=== PATIENT | male | born 1960 | race Caucasian/White ===

== ENCOUNTER 2019-12-08 12:08 | Inpatient (IN) | payer OTHER ==
--- NOTE | 2019-12-08 12:16 | PDOC ---
Rapid Medical Evaluation Time Seen by Provider: 12/08/19 12:09 Medical Evaluation: Allergies Allergy/AdvReac Type Severity Reaction Status Date / Time CORIE Inhibitors Allergy Verified 11/20/19 11:27 enalapril Allergy Verified 11/20/19 11:27 12/08/19 12:10 I performed a brief in-person evaluation of this patient. Pt is a 59 y/o male with a wound to the L lower leg that he has had since March 2018. He states the wound has been increasingly more odorous for the last 2 weeks. He was seen by Dr. Fields and was advised to come to the ED for admission. He denies history of DM and states he has circulation issues. He denies any fevers or chills. He has CHF, nonischemic cardiomyopathy, HTN. Nonsmoker. Pertinent physical exam findings: b/l LE chronic skin changes appreciated. RLE with bandage in place. Nontoxic, speaking in full sentences. I have ordered the following: cbc, cmp, saline lock Patient to proceed to ED for further evaluation. Discharge Disposition - Diagnosis Wound of lower extremity - Referrals - Patient Instructions - Post Discharge Activity
--- NOTE | 2019-12-08 12:51 | PDOC ---
History of Present Illness - General Chief Complaint: Wound Stated Complaint: WOUND Time Seen by Provider: 12/08/19 12:09 History Source: Patient Exam Limitations: No Limitations - History of Present Illness Initial Comments: 12/08/19 12:51 Caio Conteh is a 59M with PMH non-ischemic CM, CHF, PAD, chronic bilateral LE ulcers referred by Dr. Meyer for admission and IV ABx. Patient has had BLE ulcers for last 2 years, had IV ABx last 06/26, has been following with Dr. Lopez wound clinic last few months. Last 2 weeks having malodorous discharge and increased serous discharge. Has MANAGER ETL to manage wound care. Last visit to wound clinic Dr. Meyer referred to ED for admission for IV ABx. Denies chest pain, SOB, papitations, abd pain, N/V/D, dizziness, urinary sx. Unable to ambulate, stays at home and elevates legs in bed. Denies any LE pain or numbness/tingling, denies any bleeding or pus. History of CHF 2/2 cardiomyopathy, on triamterene/HCTZ. Also chronic lower back pain and sciatica, on gabapentin and oxycodone. PMD in the [facility] Dr. Lopez Scheduled for umbilical hernia repair in 2 weeks and vascular laser ablation next month. Allergy to enalapril. Large number of meds taken. Denies alcohol/drug/tobacco use. Past History - Medical History Allergies/Adverse Reactions: Allergies Allergy/AdvReac Type Severity Reaction Status Date / Time CORIE Inhibitors Allergy Verified 11/20/19 11:27 enalapril Allergy Verified 11/20/19 11:27 Home Medications: Ambulatory Orders Amlodipine Besylate 1 tab PO DAILY 07/14/19 Gabapentin 1 tab PO TID 07/14/19 Oxycodone HCl/Acetaminophen [Oxycodone-Acetaminophen 10-325] 1 tab PO PRN 08/29/19 Buprenorphine 5 mg TD WEEKLY 10/23/19 Naftifine HCl [Naftin] 60 gm TP DAILY #1 tube 10/31/19 Aspirin [Aspirin EC] 81 mg PO DAILY 12/08/19 Carvedilol 12.5 mg PO DAILY 12/08/19 Docusate Sodium [Colace] 100 mg PO DAILY 12/08/19 Melatonin 1 mg PO PRN 12/08/19 Torsemide 20 mg PO PRN 12/08/19 Anemia: No Asthma: No Cancer: No Cardiac Disorders: Yes (Non ischemic myopathy, CHF) CVA: No COPD: No CHF: Yes Dementia: No Diabetes: No GI Disorders: No Disorders: No HTN: Yes Hypercholesterolemia: Yes Liver Disease: No Seizures: No Thyroid Disease: No - Surgical History Abdominal Surgery: No Appendectomy: No Cardiac Surgery: No Cholecystectomy: No Lung Surgery: No Neurologic Surgery: No Orthopedic Surgery: No - Psycho-Social/Smoking History Smoking History: Never smoked Have you smoked in the past 12 months: No - Substance Abuse Hx (Audit-C & DAST Scrn) How often the patient has a drink containing alcohol: Monthly or less Number of drinks the patient has on a typical day: 1 or 2 How often the patient has six or more drinks on one occasion: Never Score: In Men: 4 or > Positive; In Women: 3 or > Positive: 1 Screen Result (Pos requires Nsg. Audit-10AR): Negative In the last yr the pt used illegal drug/Rx for NonMed reason: No Score: Yes response is considered Positive: 0 Screen Result (Positive result requires Nsg. DAST-10): Negative Review of Systems - Review of Systems Able to Perform ROS?: Yes Constitutional: No: Fever, Weakness HEENTM: No: Symptoms Reported Respiratory: No: Cough, Shortness of Breath Cardiac (ROS): No: Chest Pain, Edema, Irregular Heart Rate, Lightheadedness, Palpitations, Syncope ABD/GI: No: Constipated, Diarrhea, Nausea, Poor Appetite, Poor Fluid Intake, Vomiting : No: Symptoms Reported Musculoskeletal: Yes: Back Pain Integumentary: Yes: Other (wounds BLE) Neurological: No: Headache, Numbness, Paresthesia Endocrine: No: Symptoms Reported Hematologic/Lymphatic: No: Symptoms Reported All Other Systems: Reviewed and Negative *Physical Exam - Vital Signs Last Vital Signs Temp Pulse Resp BP Pulse Ox 98.4 F 127 H 20 134/79 96 12/08/19 12:10 12/08/19 12:10 12/08/19 12:10 12/08/19 12:10 12/08/19 12:10 - Physical Exam General Appearance: Yes: Nourished, Appropriately Dressed, Obese, Other (pleasant and extra talkative). No: Apparent Distress HEENT: positive: EOMI, ALEJANDRA, Normal Voice, Pharynx Normal. negative: Scleral Icterus (R), Scleral Icterus (L), Pharyngeal Erythema, Tonsillar Exudate, Tonsillar Erythema, Nasal Congestion Neck: positive: Trachea midline, Normal Thyroid, Supple. negative: Tender, Rigid, Lymphadenopathy (R), Lymphadenopathy (L) Respiratory/Chest: positive: Lungs Clear, Normal Breath Sounds. negative: Chest Tender, Respiratory Distress, Accessory Muscle Use, Crackles, Rales, Rhonchi, Stridor Cardiovascular: positive: Regular Rhythm, Regular Rate, Tachycardia (127) Gastrointestinal/Abdominal: positive: Normal Bowel Sounds, Soft, Protuberent, Hernia (large umbilical hernia with apical wound, reducible and non-tender). negative: Tender, Pulsatile Mass, Distended, Guarding, Rebound Musculoskeletal: positive: Normal Inspection. negative: CVA Tenderness, CVA Tenderness (R), CVA Tenderness (L), Vertebral Tenderness Extremity: positive: Normal Capillary Refill, Normal Inspection, Normal Range of Motion, Pelvis Stable. negative: Tender Integumentary: positive: Swelling, Other (large 4x5x0.5cm wound to LLE with granulation tissue, no bleeding or pus, scattered ulcers to RLE, edema from BLE feet to knees) Neurologic: positive: Fully Oriented, Alert, Normal Mood/Affect, Normal Response, Motor Strength 5/5, Other (full ROM to BLE, no sensory deficits). negative: Numbness, Sensory Deficit ED Treatment Course - LABORATORY CBC & Chemistry Diagram: 12/08/19 13:10 12/08/19 13:10 Medical Decision Making - Medical Decision Making 12/08/19 14:12 Patient has history of CM, CHF, and chronic wounds followed by wound clinic Dr. Lopez and Dr. Meyer, referred for IV ABx and admission. Patient denies any systemic sx, but has worsening wounds and discharge consistent with worsening ulceration. Tachycardic to 100s, no SOB or cough, no chest pain, no hypoxia, but has BLE swelling and is sedentary. Very low suspicion for DVT, tachycardia likely 2/2 back pain which patient frequently complains about, will closely monitor and get US for DVT eval. Avoiding IVF for tachycardia given BLE swelling and worsening third spacing. Abdominal hernia is large but completely reducible and non-tender. Evaluating with basic labs, ESR/CRP for eval osteo, ECG/CXR, UA/UC, BC, R tib/fib XR for eval gangrene, wound culture, and BLE US for eval DVT. Dr. Meyer consulted for IV Abx. Plan for Med/Surg admission. 12/08/19 15:[address] Salinas, accepted for admission for IV ABx to Med-Surg. Consulted Dr. Meyer, spoke with ID Dr. Jay (?) covering, recommends 3.375mg IV Zosyn Q8hr and 1000mg one time vancomycin. Discharge - Discharge Information Problems reviewed: Yes Clinical Impression/Diagnosis: Wound of lower extremity Qualifiers: Encounter type: initial encounter Laterality: left Qualified Code(s): S81.802A - Unspecified open wound, left lower leg, initial encounter Condition: Stable - Admission Yes - Follow up/Referral - Patient Discharge Instructions - Post Discharge Activity
[2019-12-08 13:59] LABS: BASO % 0.8 % (0-2.0); EOS % 6.9 % (0-4.5); HEMATOCRIT 34.2 % (35.4-49); HEMOGLOBIN 10.9 GM/dL (11.7-16.9); LYMPH % 15.5 % (8-40); MCH 27.6 pg (25.7-33.7); MCHC 31.9 g/dl (32.0-35.9); MEAN CELL VOLUME 86.5 fl (80-96); MONO % 7.1 % (3.8-10.2); NEUT % 69.7 % (42.8-82.8); PLATELET COUNT 294 K/MM3 (134-434); RBC 3.96 M/mm3 (4.00-5.60); RDW 15.8 % (11.9-15.9); WHITE BLOOD COUNT 9.1 K/mm3 (4.0-10.0)
[2019-12-08 14:07] LABS: INR 1.06 (0.83-1.09); PROTHROMBIN TIME (PATIENT) 12.5 SEC (9.7-13.0)
[2019-12-08 14:10] LABS: ACTIVATED PTT 31.5 SECONDS (25.2-36.5)
[2019-12-08 14:31] LABS: BILIRUBIN,TOTAL 0.2 mg/dL (0.2-1); BLOOD UREA NITROGEN 23.3 mg/dL (7-18); CALCIUM 8.7 mg/dL (8.5-10.1); POTASSIUM 4.4 mmol/L (3.5-5.1); TOT PROT 6.6 g/dl (6.4-8.2)
--- NOTE | 2019-12-08 14:55 | PDOC ---
Documentation entered by Junior Carty SCRIBE, acting as scribe for Cyndi Melgar MD. Cyndi Melgar MD: This documentation has been prepared by the Machelle monae Xhesika, SCRIBE, under my direction and personally reviewed by me in its entirety. I confirm that the documentation accurately reflects all work, treatment, procedures, and medical decision making performed by me. Attending Attestation - Resident Resident Name: Shay Rosales - ED Attending Attestation I have performed the following: I have examined & evaluated the patient, The case was reviewed & discussed with the resident, I agree w/resident's findings & plan, Exceptions are as noted - HPI HPI: 12/08/19 12:53 The patient is a 59 y/o male with a h/o CHF, nonischemic cardiomyopathy, and HTN who presents to the ED for BLE wounds. Pt states he has had this wound since March 2018 but for the past 2 weeks, pt has noticed the wound has become increasingly more odorous with discharge. Pt notes he was seen by Dr. Meyer and was advised to come to the ED for abx and admission. The patient denies chest pain, shortness of breath, headache and dizziness. Denies fever, chills, cough, nausea, vomiting, diarrhea and constipation. Allergies: CORIE inhibitors, enalapril PCP:Umer Álvarez - Physicial Exam PE: GENERAL: Awake, alert, and fully oriented, in no acute distress. Morbidly obese HEAD: No signs of trauma EYES: PERRLA, EOMI, sclera anicteric, conjunctiva clear ENT: Auricles normal inspection, hearing grossly normal, nares patent, oropharynx clear without exudates. Moist mucosa NECK: Normal ROM, supple, no lymphadenopathy, JVD, or masses LUNGS: Breath sounds equal, clear to auscultation bilaterally. No wheezes, and no crackles HEART: Regular rate and rhythm, normal S1 and S2, no murmurs, rubs or gallops ABDOMEN: Soft, nontender, normoactive bowel sounds. No guarding, no rebound. +Large reducible umbilical hernia with skin breakdown, no drainage EXTREMITIES: 3+ pitting edema to BLE, with chronic stasis changes. Normal range of motion. No clubbing or cyanosis. No cords, erythema, or tenderness NEUROLOGICAL: Cranial nerves II through XII grossly intact. Normal speech. Motor and sensation intact SKIN: Warm, dry, normal turgor. +Multiple open lesions to BLE with surrounding erythema and induration. +Weeping wounds to RLE with clear fluid. +Weeping wound to L lower leg +odor. - Medical Decision Making Pt with multiple wounds to BLE, LLE wounds concerning for infection. Discharge - Discharge Information Problems reviewed: Yes Clinical Impression/Diagnosis: Wound of lower extremity Qualifiers: Encounter type: initial encounter Laterality: left Qualified Code(s): S81.802A - Unspecified open wound, left lower leg, initial encounter Condition: Stable - Follow up/Referral - Patient Discharge Instructions - Post Discharge Activity
--- NOTE | 2019-12-08 15:24 | HP ---
CHIEF COMPLAINT: infected ulcers on leg PCP:Betsy HISTORY OF PRESENT ILLNESS: 59M with PMH non-ischemic CM, CHF, PAD, chronic bilateral LE ulcers referred by Dr. Meyer for admission and IV ABx. Patient has had BLE ulcers for last 2 years, had IV ABx last 06/26, has been following with Dr. Lopez wound clinic last few months. Last 2 weeks having malodorous discharge and increased serous discharge. Has NETWORK CONTRACTOR to manage wound care. Last visit to wound clinic Dr. Meyer referred to ED for admission for IV ABx. Denies chest pain, SOB, papitations, abd pain, N/V/D, dizziness, urinary sx. Unable to ambulate, stays at home and elevates legs in bed. Denies any LE pain or numbness/tingling, denies any bleeding or pus. History of CHF 2/2 cardiomyopathy, on triamterene. Also chronic lower back pain and sciatica, on gabapentin. ER course was notable for: (1)No smoking alcohol or drug use (2) (3) Recent Travel:No travel PAST MEDICAL HISTORY:non-ischemic CM, CHF, PAD, chronic bilateral LE ulcers PAST SURGICAL HISTORY: None Social History: denies Smoking:no Alcohol:no Drugs: no Family history not significant Allergies CORIE Inhibitors Allergy (Verified 11/20/19 11:27) enalapril Allergy (Verified 11/20/19 11:27) HOME MEDICATIONS: Home Medications Medication Instructions Recorded Amlodipine Besylate 1 tab PO DAILY 07/14/19 Atorvastatin Ca [Lipitor] 1 tab PO DAILY 07/14/19 Carvedilol 1 tab PO DAILY 07/14/19 Gabapentin 1 tab PO TID 07/14/19 Ibuprofen 1 tab PO TID PRN 07/14/19 Triamterene/Hydrochlorothiazid 1 cap PO DAILY 07/14/19 [Triamterene-Hctz 37.5-25 mg Cp] Oxycodone HCl/Acetaminophen 5 mg PO DAILY 08/29/19 [Oxycodone-Acetaminophen 10-325] Buprenorphine 5 mg TD WEEKLY 10/23/19 Naftifine HCl [Naftin] 60 gm TP DAILY #1 tube 10/31/19 REVIEW OF SYSTEMS CONSTITUTIONAL: Absent: fever, chills, diaphoresis, generalized weakness, malaise, loss of appetite, weight change HEENT: Absent: rhinorrhea, nasal congestion, throat pain, throat swelling, difficulty swallowing, mouth swelling, ear pain, eye pain, visual changes CARDIOVASCULAR: Absent: chest pain, syncope, palpitations, irregular heart rate, lightheadedness, peripheral edema RESPIRATORY: Absent: cough, shortness of breath, dyspnea with exertion, orthopnea, wheezing, stridor, hemoptysis GASTROINTESTINAL: Absent: abdominal pain, abdominal distension, nausea, vomiting, diarrhea, constipation, melena, hematochezia GENITOURINARY: Absent: dysuria, frequency, urgency, hesitancy, hematuria, flank pain, genital pain MUSCULOSKELETAL: Absent: myalgia, arthralgia, joint swelling, back pain, neck pain SKIN: wounds on leg HEMATOLOGIC/IMMUNOLOGIC: Absent: easy bleeding, easy bruising, lymphadenopathy, frequent infections ENDOCRINE: Absent: unexplained weight gain, unexplained weight loss, heat intolerance, cold intolerance NEUROLOGIC: Absent: headache, focal weakness or paresthesias, dizziness, unsteady gait, seizure, mental status changes, bladder or bowel incontinence PSYCHIATRIC: Absent: anxiety, depression, suicidal or homicidal ideation, hallucinations. PHYSICAL EXAMINATION Vital Signs - 24 hr 12/08/19 12/08/19 12:10 15:10 Temperature 98.4 F Pulse Rate 127 H Respiratory 20 Rate Blood Pressure 134/79 O2 Sat by Pulse 96 95 Oximetry (%) GENERAL: Awake, alert, and fully oriented, in no acute distress. HEAD: Normal with no signs of trauma. EYES: Pupils equal, round and reactive to light, extraocular movements intact, sclera anicteric, conjunctiva clear. No lid lag. EARS, NOSE, THROAT: Ears normal, nares patent, oropharynx clear without exudates. Moist mucous membranes. NECK: Normal range of motion, supple without lymphadenopathy, JVD, or masses. LUNGS: Breath sounds equal, clear to auscultation bilaterally. No wheezes, and no crackles. No accessory muscle use. HEART: Regular rate and rhythm, normal S1 and S2 without murmur, rub or gallop. ABDOMEN: Soft, nontender, not distended, normoactive bowel sounds, no guarding, no rebound, no masses. No hepatomegaly or splenomegaly. He had umbilical hernia MUSCULOSKELETAL: Normal range of motion at all joints. No bony deformities or tenderness. No CVA tenderness. UPPER EXTREMITIES: 2+ pulses, warm, well-perfused. No cyanosis. No clubbing. No peripheral edema. LOWER EXTREMITIES: 2+ pulses, warm, well-perfused. No calf tenderness. No peripheral edema. NEUROLOGICAL: Cranial nerves II-XII intact. Normal speech. Normal gait. PSYCHIATRIC: Cooperative. Good eye contact. Appropriate mood and affect. SKIN: he has Swelling, Other (large 4x5x0.5cm wound to LLE with granulation tissue, no bleeding or pus, scattered ulcers to RLE, edema from BLE feet to knees)Laboratory Results - last 24 hr 12/08/19 12/08/19 12/08/19 13:10 13:10 13:10 WBC 9.1 RBC 3.96 L Hgb 10.9 L Hct 34.2 L MCV 86.5 MCH 27.6 MCHC 31.9 L RDW 15.8 Plt Count 294 MPV 8.0 Absolute Neuts (auto) 6.4 Neutrophils % 69.7 Lymphocytes % 15.5 Monocytes % 7.1 Eosinophils % 6.9 H Basophils % 0.8 Nucleated RBC % 0 ESR PT with INR INR PTT (Actin FS) Sodium 141 Potassium 4.4 Chloride 105 Carbon Dioxide 33 H Anion Gap 3 L BUN 23.3 H Creatinine 1.0 Est GFR (CKD-EPI)AfAm 96.40 Est GFR (CKD-EPI)NonAf 83.18 Random Glucose 97 Calcium 8.7 Total Bilirubin 0.2 AST 12 L ALT 19 Alkaline Phosphatase 36 L C-Reactive Protein 2.5 H Total Protein 6.6 Albumin 3.0 L 12/08/19 12/08/19 13:10 13:10 WBC RBC Hgb Hct MCV MCH MCHC RDW Plt Count MPV Absolute Neuts (auto) Neutrophils % Lymphocytes % Monocytes % Eosinophils % Basophils % Nucleated RBC % ESR 90 H PT with INR 12.50 INR 1.06 PTT (Actin FS) 31.5 Sodium Potassium Chloride Carbon Dioxide Anion Gap BUN Creatinine Est GFR (CKD-EPI)AfAm Est GFR (CKD-EPI)NonAf Random Glucose Calcium Total Bilirubin AST ALT Alkaline Phosphatase C-Reactive Protein Total Protein Albumin ASSESSMENT/PLAN: Patient has history of CM, CHF, and chronic wounds followed by wound clinic Dr. Lopez and Dr. Meeyr, referred for IV ABx and admission. Leg ulcers with infecion plan start zosyn Id evaluation htn continue coreg and amlodipine Neuropathy continue the gabapentin High lipids renew atorvastatin. DVT prophylaxis with Lovenox Umbilical hernia he already has an appointment with surgeon outside for repair. He has mild cellulitis there to and antibiotics will help Visit type - Emergency Visit Emergency Visit: Yes Care time: The patient presented to the Emergency Department on the above date and was hospitalized for further evaluation of their emergent condition. - New Patient This patient is new to me today: Yes Date on this admission: 12/08/19 - Critical Care Critical Care patient: No
[2019-12-08] MEDS ORDERED: PATIENT'S OWN MEDICATION (NON-FORMULARY) (Oxycodone Hcl/Acetaminophen [Oxycodone-Acetamino PO PRN (15:26)
[2019-12-08] MEDS ORDERED: VANCOMYCIN 1 GM in D5W (PRE-DOCKED) 1,000 MG/250 ML IVPB ONE (15:34)
[2019-12-08] MEDS ORDERED: ACETAMINOPHEN 325 MG TABLET (FP) PO PRN (15:45)
[2019-12-08] MEDS ORDERED: VANCOMYCIN 1 GRAM (PRE-DOCKED) 1,000 MG/250 ML BAG IVPB ONE (16:09)
[2019-12-08] MEDS ORDERED: IBUPROFEN 400 MG TABLET (FP) PO PRN (16:49)
[2019-12-08] MEDS ORDERED: PIPERACILLIN/TAZOB 3.375 GM 3.375 GM/50 ML BAG IVPB ONE (18:41)
[2019-12-08] MEDS: PIPERACILLIN/TAZOB 3.375 GM 3.375 GM in DEXTROSE 5%-WATER - 50 ML IVPB SCH (19:00)
--- NOTE | 2019-12-08 20:30 | CON.ID ---
Consult - History of Present Illness History of Present Illness: 59 y.o. male with PMH of CHF, CM, HLD, HTN, morbid obesity, chronic generalized pain, PVD and b/l chronic venous stasis LE ulcers presents with c/o increasing malodorous drainage from non-healing LLE wound in the past 3 wks. In the past he had followed up with wound care clinic with Dr. Lopez. May 2018 had espinoza boot but was removed. Pt states last treated with antibiotics about 6 months ago. Seen in [facility] by Dr. Meyer 3 days ago and was instructed to go to the ER. In the ER, noted to be afebrile, without leukocytosis but with increased LLE draina ge. He denies pain in LLE and has chronic leg edema usually sitting in wheel chair when out of bed. No other complaints expressed by patient. - History Source History Provided By: Patient - Past Medical History Cardio/Vascular: Yes: CHF, HTN, Hyperlipdemia, Other (PVD, venous stasis b/l LE) Gastrointestinal: Yes: Other (morbid obesity) - Smoking History Smoking history: Never smoked Have you smoked in the past 12 months: No - Social History ADL: Independent Home Medications - Allergies Allergies/Adverse Reactions: Allergies Allergy/AdvReac Type Severity Reaction Status Date / Time CORIE Inhibitors Allergy Verified 11/20/19 11:27 enalapril Allergy Verified 11/20/19 11:27 - Home Medications Home Medications: Ambulatory Orders Amlodipine Besylate 1 tab PO DAILY 07/14/19 Gabapentin 1 tab PO TID 07/14/19 Oxycodone HCl/Acetaminophen [Oxycodone-Acetaminophen 10-325] 1 tab PO PRN 08/29/19 Buprenorphine 5 mg TD WEEKLY 10/23/19 Naftifine HCl [Naftin] 60 gm TP DAILY #1 tube 10/31/19 Aspirin [Aspirin EC] 81 mg PO DAILY 12/08/19 Carvedilol 12.5 mg PO DAILY 12/08/19 Docusate Sodium [Colace] 100 mg PO DAILY 12/08/19 Melatonin 1 mg PO PRN 12/08/19 Torsemide 20 mg PO PRN 12/08/19 Review of Systems - Review of Systems Constitutional: reports: No Symptoms. denies: Chills, Diaphoresis, Fever, Lethargy, Loss of Appetite, Malaise, Night Sweats, Unintentional Wgt. Loss, Weakness, Other Eyes: reports: No Symptoms. denies: Blind Spots, Blurred Vision, Double Vision, Eye Pain, Floaters, Photophobia, Recent Change in Vision, Other HENT: reports: No Symptoms. denies: Difficult Swallowing, Ear Discharge, Ear Pain, Epistaxis, Gingival Bleeding, Hearing Loss, Mouth Swelling, Nasal Congestion, Ocular Prosthesis, Throat Pain, Toothache, Ringing in Ears, Other Neck: reports: No Symptoms. denies: Decreased ROM, Lumps, Pain on Movement, Stiffness, Swollen Glands, Tenderness, Other Cardiovascular: reports: No Symptoms. denies: Chest Pain, Edema, Palpitations, Shortness of Breath, Other Respiratory: reports: No Symptoms. denies: Cough, Exercise Intolerance, Hemopty sis, Orthopnea, PND, Snoring, SOB, SOB on Exertion, Wheezing, Other Gastrointestinal: reports: No Symptoms. denies: Abdominal Pain, Bloating, Constipation, Diarrhea, Dysphagia, Indigestion, Melena, Nausea, Rectal Bleeding, Vomiting, Vomiting Blood, Other Genitourinary: reports: No Symptoms. denies: Burning, Discharge, Dysuria, Flank Pain, Frequency, Hematuria, Incontinence, Lesions, Menses, Pain, Testicular Mass, Testicular Pain, Testicular Swelling, Urgency, Vaginal Bleeding, Other Musculoskeletal: reports: No Symptoms. denies: Back Pain, Crepitus, Decreased ROM, Extremity Pain, Joint Pain, Joint Swelling, Muscle Pain, Muscle Cramps, Muscle Weakness, Other Integumentary: reports: Wound (b/l LE non-heeling ulcers) Neurological: reports: No Symptoms. denies: Change in LOC, Change in Speech, Confusion, Dizziness, Headache, Incoordination, Numbness, Parasthesia, Pre- Existing Deficit, Seizure, Syncope, Tremors, Unsteady Gait, Weakness, Other Endocrine: reports: No Symptoms. denies: Excessive Sweating, Flushing, Increased Hunger, Increased Thirst, Intolerance to Cold, Intolerance to Heat, Unexplained Weight Gain, Unexplained Weight Loss, Other Hematology/Lymphatic: reports: No Symptoms. denies: Easily Bruised, Excessive Bleeding, Swollen Glands, Other Psychiatric: reports: No Symptoms. denies: Altered Sleep Pattern, Anxiety, Depression, Hallucinations, Panic, Paranoia, Suicidal, Other Physical Exam Vital Signs: Vital Signs Temperature 98.2 F 07/03/20 17:00 Pulse Rate 127 H 12/08/19 17:00 Respiratory Rate 20 12/08/19 17:00 Blood Pressure 114/76 12/08/19 17:00 O2 Sat by Pulse Oximetry (%) 96 12/08/19 17:00 Constitutional: Yes: No Distress, Calm Eyes: Yes: Conjunctiva Clear, EOM Intact HENT: Yes: Atraumatic Neck: Yes: Supple Cardiovascular: Yes: Tachycardia Respiratory: Yes: Regular Gastrointestinal: Yes: Normal Bowel Sounds, Soft, Abdomen, Obese Renal/: Yes: WNL Extremities: Yes: Erythema (chronic b/l LE) Peripheral Pulses WNL: Yes Integumentary: Yes: Onychomycosis, Venous Stasis Changes, Other (b/l LE venous stasis ulcers, RLE ulcers with minimal serous drainage, LLE ulcer with copious mildly malodorous serosanguinous d/c) Wound/Incision: Yes: Dressing Removed Neurological: Yes: Alert, Oriented Labs: CBC, BMP 12/08/19 13:10 12/08/19 13:10 Imaging - Results X-ray: Pending Problem List - Problems (1) Wound of lower extremity Code(s): S81.809A - UNSPECIFIED OPEN WOUND, UNSPECIFIED LOWER LEG, INIT ENCNTR Qualifiers: Encounter type: initial encounter Laterality: left Qualified Code(s): S81.802A - Unspecified open wound, left lower leg, initial encounter (2) Venous stasis ulcers of both lower extremities Code(s): I83.019 - VARICOSE VEINS OF RIGHT LOWER EXTREMITY W ULCER OF UNSP SITE; I83.029 - VARICOSE VEINS OF LEFT LOWER EXTREMITY W ULCER OF UNSP SITE; L97.919 - NON-PRS CHRONIC ULC UNSP PRT OF R LOW LEG W UNSP SEVERITY; L97.929 - NON-PRS CHRONIC ULC UNSP PRT OF L LOW LEG W UNSP SEVERITY (3) Infected stasis ulcer of left lower extremity Code(s): I83.229 - VARICOS VN OF L LOW EXTREM W ULC OF UNSP SITE AND INFLAM; L97.929 - NON-PRS CHRONIC ULC UNSP PRT OF L LOW LEG W UNSP SEVERITY (4) Cardiomyopathy Code(s): I42.9 - CARDIOMYOPATHY, UNSPECIFIED (5) HTN (hypertension) Code(s): I10 - ESSENTIAL (PRIMARY) HYPERTENSION (6) HLD (hyperlipidemia) Code(s): E78.5 - HYPERLIPIDEMIA, UNSPECIFIED Assessment/Plan Infected LLE chronic ulcer b/l LE ulcers Venous stasis HTN HLD CM Morbid obesity Onychomycosis -- start on Zosyn/Vancomycin empirically, monitor renal function, Vancomycin trough prior to 4th dose -- wound and blood cultures sent -- f/u xray results -- esr, crp -- continue wound care -- leg elevation Will follow Thank you
[2019-12-08] MEDS ORDERED: CARVEDILOL 3.125 MG TABLET (FP) ONE (22:01)
[2019-12-08] MEDS ORDERED: GABAPENTIN 100 MG CAPSULE ONE (22:01)
[2019-12-08] MEDS: CARVEDILOL 3.125 MG TABLET (FP) PO SCH (22:10)
[2019-12-08] MEDS: GABAPENTIN 400 MG CAPSULE PO SCH (22:10)
[2019-12-09] MEDS: oxyCODONE HCL 5 MG TABLET PO PRN ×4 (01:30→22:59)
[2019-12-09] MEDS: ACETAMINOPHEN 325 MG TABLET (FP) PO PRN ×2 (01:32→08:00)
[2019-12-09] MEDS: PIPERACILLIN/TAZOB 3.375 GM 3.375 GM in DEXTROSE 5%-WATER - 50 ML IVPB SCH ×3 (01:55→18:58)
[2019-12-09] MEDS: VANCOMYCIN HCL 1,250 MG in DEXTROSE 5%-WATER - 250 ML IVPB SCH ×2 (04:24→16:15)
[2019-12-09] MEDS: GABAPENTIN 400 MG CAPSULE PO SCH ×3 (05:29→22:10)
[2019-12-09] MEDS ORDERED: ATORVASTATIN CA 10 MG TABLET (FP) PO SCH (10:00)
[2019-12-09] MEDS ORDERED: CARVEDILOL 3.125 MG TABLET (FP) PO SCH (10:00)
--- NOTE | 2019-12-09 10:36 | PN ---
Progress Note (short form) - Note Progress Note: Patient is a 59yom with PMhx of BLE ulcers for last 2 years, s/p IV ABx last 06/26, HTN, HLD, diastolic chf,hld, htn , chronic venous stasis follows with wound care clinic with dr Lopez, presents from Dr Meyer's office for having LLE having malodorous discharge and increased serous discharge. Was send for IV antibiotics and further management. Patient is feeling better. Vital Signs Temperature 98.2 F 12/09/19 00:10 Pulse Rate 124 H 12/09/19 00:10 Respiratory Rate 24 H 12/09/19 00:10 Blood Pressure 106/74 12/09/19 00:10 O2 Sat by Pulse Oximetry (%) 95 12/09/19 06:00 Initial Vital Signs Temp Pulse Resp BP Pulse Ox 98.4 F 127 H 20 134/79 96 12/08/19 12:10 12/08/19 12:10 12/08/19 12:10 12/08/19 12:10 12/08/19 12:10 PE: GENERAL: The patient is awake, alert, and fully oriented, in no acute distress. HEAD: Normal with no signs of trauma. EYES: PERRL, extraocular movements intact, sclera anicteric, conjunctiva clear. ENT: Ears normal, oropharynx clear without exudates, moist mucous membranes. NECK: Trachea midline, full range of motion, supple. LUNGS: Breath sounds equal, clear to auscultation bilaterally, no wheezes, no crackles, no accessory muscle use. HEART: Regular rate and rhythm, S1, S2 without murmur, rub or gallop. ABDOMEN: class 3 appreciated, Soft, nontender, nondistended, normoactive bowel sounds, no guarding, no rebound, no masses appreciated. EXTREMITIES: 2+ pulses, warm, well-perfused, 2 plus edema. NEUROLOGICAL: Cranial nerves II through XII grossly intact. Normal speech, gait not observed. on a wheelchair PSYCH: Normal mood, normal affect. SKIN: Warm, dry, normal turgor, no rashes or lesions noted CBCD WBC 9.1 K/mm3 (4.0-10.0) 12/08/19 13:10 RBC 3.96 M/mm3 (4.00-5.60) L 12/08/19 13:10 Hgb 10.9 GM/dL (11.7-16.9) L 12/08/19 13:10 Hct 34.2 % (35.4-49) L 12/08/19 13:10 MCV 86.5 fl (80-96) 12/08/19 13:10 MCHC 31.9 g/dl (32.0-35.9) L 12/08/19 13:10 RDW 15.8 % (11.9-15.9) 12/08/19 13:10 Plt Count 294 K/MM3 (134-434) 12/08/19 13:10 MPV 8.0 fl (7.5-11.1) 12/08/19 13:10 CMP Sodium 141 mmol/L (136-145) 12/08/19 13:10 Potassium 4.4 mmol/L (3.5-5.1) 12/08/19 13:10 Chloride 105 mmol/L (98-107) 12/08/19 13:10 Carbon Dioxide 33 mmol/L (21-32) H 12/08/19 13:10 Anion Gap 3 MMOL/L (8-16) L 12/08/19 13:10 BUN 23.3 mg/dL (7-18) H 12/08/19 13:10 Creatinine 1.0 mg/dL (0.55-1.3) 12/08/19 13:10 Random Glucose 97 mg/dL (74-106) 12/08/19 13:10 Calcium 8.7 mg/dL (8.5-10.1) 12/08/19 13:10 Total Bilirubin 0.2 mg/dL (0.2-1) 12/08/19 13:10 AST 12 U/L (15-37) L 12/08/19 13:10 ALT 19 U/L (13-61) 12/08/19 13:10 Alkaline Phosphatase 36 U/L (45-117) L 12/08/19 13:10 Total Protein 6.6 g/dl (6.4-8.2) 12/08/19 13:10 Albumin 3.0 g/dl (3.4-5.0) L 12/08/19 13:10 Current Medications Generic Name Dose Route Start Last Admin Trade Name Freq PRN Reason Stop Dose Admin Acetaminophen 650 mg 12/08/19 15:32 Tylenol - PO Q6H PRN PAIN LEVEL 1-5 Acetaminophen 325 mg 12/08/19 15:45 12/09/19 08:00 Tylenol - PO 325 mg Q6H PRN Administration PAIN LEVEL 6-10 Amlodipine Besylate 10 mg 12/09/19 10:00 Norvasc - PO DAILY REPLACED BY [facility] Atorvastatin Calcium 10 mg 12/09/19 10:00 Lipitor - PO DAILY REPLACED BY [facility] Carvedilol 3.125 mg 12/08/19 22:00 12/08/19 22:10 Coreg - PO 3.125 mg BID REPLACED BY [facility] Administration Enoxaparin Sodium 40 mg 12/09/19 10:00 Lovenox - SQ DAILY REPLACED BY [facility] Gabapentin 800 mg 12/08/19 22:00 12/09/19 05:29 Neurontin - PO 800 mg TID REPLACED BY [facility] Administration Piperacillin Sod/Tazobactam 50 mls @ 100 mls/hr 12/08/19 18:00 Sod 3.375 gm/ Dextrose IVPB Q8H-IV [facility] Protocol Vancomycin HCl 1,250 mg/ 250 mls @ 250 mls/2 hr 12/09/19 04:00 12/09/19 04:24 Dextrose IVPB 12/16/19 03:59 250 mls/2 hr Q12H [facility] Administration Ibuprofen 800 mg 12/08/19 16:49 12/09/19 05:29 Motrin - PO 800 mg Q8H PRN Administration PAIN LEVEL 1-5 Oxycodone HCl 10 mg 12/08/19 15:45 12/09/19 07:57 Roxicodone - PO 10 mg Q6H PRN Administration PAIN LEVEL 6-10 Home Medications Medication Instructions Recorded Amlodipine Besylate 1 tab PO DAILY 07/14/19 Atorvastatin Ca [Lipitor] 2 tab PO DAILY 07/14/19 Gabapentin 1 tab PO TID 07/14/19 Ibuprofen 1 tab PO PRN PRN 07/14/19 Triamterene/Hydrochlorothiazid 1 cap PO DAILY 07/14/19 [Triamterene-Hctz 37.5-25 mg Cp] Oxycodone HCl/Acetaminophen 1 tab PO PRN 08/29/19 [Oxycodone-Acetaminophen 10-325] Buprenorphine 5 mg TD WEEKLY 10/23/19 Naftifine HCl [Naftin] 60 gm TP DAILY #1 tube 10/31/19 Aspirin [Aspirin EC] 81 mg PO DAILY 12/08/19 Carvedilol 12.5 mg PO DAILY 12/08/19 Docusate Sodium [Colace] 100 mg PO DAILY 12/08/19 Melatonin 1 mg PO PRN 12/08/19 Torsemide 20 mg PO PRN 12/08/19 Microbiology 12/08/19 13:45 Leg - Left Lower Wound Culture - Preliminary Non Lactose Fermenting Gnb Streptococcus Species Staphylococcus Species left tibia and fibia xray: no osteomyelitis, no soft air accumulation , radioopaques foreign body identified. Assessment and plan: Patient has history of CM, CHF, and chronic wounds followed by wound clinic Dr. Lopez and Dr. Meyer, referred for IV ABx and admission. # Infected LLE ulcer: ON IV antibiotics; zosyn and vanco, ID on the case , follow pancx , vanco trough prior to 4th dose , f/u xray , continue wound care #chronic venous stasis #HTN: continue coreg and amlodipine #HLD: continue lipitor #CM: #Peripheral neuropathy: continue gabapentin #Class III obesity DVT prophylaxis with Lovenox Umbilical hernia he already has an appointment with surgeon outside for repair. Visit type - Emergency Visit Emergency Visit: Yes ED Registration Date: 12/08/19 Care time: The patient presented to the Emergency Department on the above date and was hospitalized for further evaluation of their emergent condition. - New Patient This patient is new to me today: Yes Date on this admission: 12/09/19 - Critical Care Critical Care patient: No - Discharge Referral Referred to [facility] Med P.C.: No
[2019-12-09] MEDS: amLODIPine BESYLATE 10 MG TABLET (FP) PO SCH (10:53)
[2019-12-09] MEDS: CARVEDILOL 3.125 MG TABLET (FP) PO SCH (11:04)
[2019-12-09] MEDS: ENOXAPARIN NA (PORCINE) 40 MG/0.4 ML DISP.SYRIN SQ SCH (11:50)
[2019-12-09] MEDS: ASPIRIN COATED 81 MG TABLET.EC PO SCH (11:51)
[2019-12-09] MEDS: CARVEDILOL 12.5 MG TABLET (FP) PO SCH (11:51)
--- NOTE | 2019-12-09 15:39 | PN ---
Progress Note, Physician History of Present Illness: Pt is alert, without distress. Wants pain patch for generalized pain. Has increased drainage from LLE ulcer. Remain afebrile but tachycardic. No distress noted. Noncompliant with IV antibiotics, leg elevation per RN. - Current Medication List Current Medications: Active Medications Acetaminophen (Tylenol -) 650 mg PO Q6H PRN PRN Reason: PAIN LEVEL 1-5 Amlodipine Besylate (Norvasc -) 10 mg PO DAILY [facility] Last Admin: 12/09/19 10:53 Dose: 10 mg Documented by: Aspirin (Ecotrin -) 81 mg PO DAILY [facility] Last Admin: 12/09/19 11:51 Dose: 81 mg Documented by: Atorvastatin Calcium (Lipitor -) 20 mg PO [facility] Carvedilol (Coreg -) 12.5 mg PO DAILY [facility] Last Admin: 12/09/19 11:51 Dose: 12.5 mg Documented by: Enoxaparin Sodium (Lovenox -) 40 mg SQ DAILY [facility] Last Admin: 12/09/19 11:50 Dose: 40 mg Documented by: Gabapentin (Neurontin -) 800 mg PO TID [facility] Last Admin: 12/09/19 14:49 Dose: 800 mg Documented by: Vancomycin HCl 1,250 mg/ (Dextrose) 250 mls @ 250 mls/2 hr IVPB Q12H [facility] Stop: 12/16/19 03:59 Last Admin: 12/09/19 04:24 Dose: 250 mls/2 hr Documented by: Piperacillin Sod/Tazobactam (Sod 3.375 gm/ Dextrose) 50 mls @ 100 mls/hr IVPB Q8H-IV [facility]; Protocol Oxycodone HCl (Roxicodone -) 10 mg PO Q6H PRN PRN Reason: PAIN LEVEL 6-10 Last Admin: 12/09/19 07:57 Dose: 10 mg Documented by: - Objective Vital Signs: Vital Signs Temperature 97.5 F L 12/09/19 14:00 Pulse Rate 124 H 12/09/19 14:00 Respiratory Rate 24 H 12/09/19 14:00 Blood Pressure 128/65 12/09/19 14:00 O2 Sat by Pulse Oximetry (%) 98 12/09/19 10:00 Constitutional: Yes: No Distress, Calm Eyes: Yes: Conjunctiva Clear Neck: Yes: Supple Cardiovascular: Yes: Tachycardia Respiratory: Yes: Regular Gastrointestinal: Yes: Normal Bowel Sounds, Soft, Abdomen, Obese Genitourinary: Yes: WNL Extremities: Yes: Erythema (chronic, b/l) Wound/Incision: Yes: Other (LLE drainage from ulcer, no warmth, +b/l LE edema, chronic venous stasis changes) Neurological: Yes: Alert, Oriented Labs: CBC, BMP 12/08/19 13:10 12/08/19 13:10 INR, PTT INR 1.06 (0.83-1.09) 12/08/19 13:10 Microbiology 12/08/19 13:10 Blood - Peripheral Venous Blood Culture - Preliminary NO GROWTH OBTAINED AFTER 24 HOURS, INCUBATION TO CONTINUE FOR 4 DAYS. 12/08/19 13:10 Blood - Peripheral Venous Blood Culture - Preliminary NO GROWTH OBTAINED AFTER 24 HOURS, INCUBATION TO CONTINUE FOR 4 DAYS. 12/08/19 13:45 Leg - Left Lower Wound Culture - Preliminary Non Lactose Fermenting Gnb Streptococcus Species Staphylococcus Species Laboratory Last Values WBC 9.1 K/mm3 (4.0-10.0) 12/08/19 13:10 RBC 3.96 M/mm3 (4.00-5.60) L 12/08/19 13:10 Hgb 10.9 GM/dL (11.7-16.9) L 12/08/19 13:10 Hct 34.2 % (35.4-49) L 12/08/19 13:10 MCV 86.5 fl (80-96) 12/08/19 13:10 MCH 27.6 pg (25.7-33.7) 12/08/19 13:10 MCHC 31.9 g/dl (32.0-35.9) L 12/08/19 13:10 RDW 15.8 % (11.9-15.9) 12/08/19 13:10 Plt Count 294 K/MM3 (134-434) 12/08/19 13:10 MPV 8.0 fl (7.5-11.1) 12/08/19 13:10 Absolute Neuts (auto) 6.4 K/mm3 (1.5-8.0) 12/08/19 13:10 Neutrophils % 69.7 % (42.8-82.8) 12/08/19 13:10 Lymphocytes % 15.5 % (8-40) 12/08/19 13:10 Monocytes % 7.1 % (3.8-10.2) 12/08/19 13:10 Eosinophils % 6.9 % (0-4.5) H 12/08/19 13:10 Basophils % 0.8 % (0-2.0) 12/08/19 13:10 Nucleated RBC % 0 % (0-0) 12/08/19 13:10 ESR 90 mm/hr (0-20) H 12/08/19 13:10 PT with INR 12.50 SEC (9.7-13.0) 12/08/19 13:10 INR 1.06 (0.83-1.09) 12/08/19 13:10 PTT (Actin FS) 31.5 SECONDS (25.2-36.5) 12/08/19 13:10 Sodium 141 mmol/L (136-145) 12/08/19 13:10 Potassium 4.4 mmol/L (3.5-5.1) 12/08/19 13:10 Chloride 105 mmol/L (98-107) 12/08/19 13:10 Carbon Dioxide 33 mmol/L (21-32) H 12/08/19 13:10 Anion Gap 3 MMOL/L (8-16) L 12/08/19 13:10 BUN 23.3 mg/dL (7-18) H 12/08/19 13:10 Creatinine 1.0 mg/dL (0.55-1.3) 12/08/19 13:10 Est GFR (CKD-EPI)AfAm 96.40 12/08/19 13:10 Est GFR (CKD-EPI)NonAf 83.18 12/08/19 13:10 Random Glucose 97 mg/dL (74-106) 12/08/19 13:10 Calcium 8.7 mg/dL (8.5-10.1) 12/08/19 13:10 Total Bilirubin 0.2 mg/dL (0.2-1) 12/08/19 13:10 AST 12 U/L (15-37) L 12/08/19 13:10 ALT 19 U/L (13-61) 12/08/19 13:10 Alkaline Phosphatase 36 U/L (45-117) L 12/08/19 13:10 C-Reactive Protein 2.5 MG/DL (0.00-0.3) H 12/08/19 13:10 Total Protein 6.6 g/dl (6.4-8.2) 12/08/19 13:10 Albumin 3.0 g/dl (3.4-5.0) L 12/08/19 13:10 - ....Imaging X-ray: Report Reviewed Problem List - Problems (1) Wound of lower extremity Code(s): S81.809A - UNSPECIFIED OPEN WOUND, UNSPECIFIED LOWER LEG, INIT ENCNTR Qualifiers: Encounter type: initial encounter Laterality: left Qualified Code(s): S81.802A - Unspecified open wound, left lower leg, initial encounter (2) Venous stasis ulcers of both lower extremities Code(s): I83.019 - VARICOSE VEINS OF RIGHT LOWER EXTREMITY W ULCER OF UNSP SITE; I83.029 - VARICOSE VEINS OF LEFT LOWER EXTREMITY W ULCER OF UNSP SITE; L97.919 - NON-PRS CHRONIC ULC UNSP PRT OF R LOW LEG W UNSP SEVERITY; L97.929 - NON-PRS CHRONIC ULC UNSP PRT OF L LOW LEG W UNSP SEVERITY (3) Infected stasis ulcer of left lower extremity Code(s): I83.229 - VARICOS VN OF L LOW EXTREM W ULC OF UNSP SITE AND INFLAM; L97.929 - NON-PRS CHRONIC ULC UNSP PRT OF L LOW LEG W UNSP SEVERITY (4) Cardiomyopathy Code(s): I42.9 - CARDIOMYOPATHY, UNSPECIFIED (5) HTN (hypertension) Code(s): I10 - ESSENTIAL (PRIMARY) HYPERTENSION (6) HLD (hyperlipidemia) Code(s): E78.5 - HYPERLIPIDEMIA, UNSPECIFIED Assessment/Plan Infected LLE chronic ulcer b/l LE ulcers Venous stasis HTN HLD CM Morbid obesity Onychomycosis -- continue Zosyn/Vancomycin empirically, monitor renal function, Vancomycin trough prior to 4th dose -- wound isolates pending -- esr, crp results noted -- continue wound care -- leg elevation Pt afebrile, monitor HR, no distress noted
[2019-12-10] MEDS: PIPERACILLIN/TAZOB 3.375 GM 3.375 GM in DEXTROSE 5%-WATER - 50 ML IVPB SCH ×5 (02:34→18:57)
[2019-12-10] MEDS: VANCOMYCIN HCL 1,250 MG in DEXTROSE 5%-WATER - 250 ML IVPB SCH ×2 (04:05→16:51)
[2019-12-10] MEDS: oxyCODONE HCL 5 MG TABLET PO PRN ×4 (04:46→23:18)
[2019-12-10] MEDS: GABAPENTIN 400 MG CAPSULE PO SCH ×3 (06:20→21:21)
[2019-12-10] MEDS: CARVEDILOL 12.5 MG TABLET (FP) PO SCH (10:00)
[2019-12-10] MEDS: ASPIRIN COATED 81 MG TABLET.EC PO SCH (10:00)
[2019-12-10] MEDS: ENOXAPARIN NA (PORCINE) 40 MG/0.4 ML DISP.SYRIN SQ SCH (10:00)
[2019-12-10] MEDS: amLODIPine BESYLATE 10 MG TABLET (FP) PO SCH (10:00)
--- NOTE | 2019-12-10 14:00 | EKG ---
Test Reason : Blood Pressure : / mmHG Vent. Rate : 120 BPM Atrial Rate : 120 BPM P-R Int : 168 ms QRS Dur : 094 ms QT Int : 352 ms P-R-T Axes : 000 007 040 degrees QTc Int : 497 ms SINUS TACHYCARDIA LOW VOLTAGE QRS CANNOT RULE OUT ANTERIOR INFARCT (CITED ON OR BEFORE 08-DEC-2019) ABNORMAL ECG WHEN COMPARED WITH ECG OF 08-DEC-2019 17:59, T WAVE VARIATION Confirmed by CASSANDRA DAMON, SCAR ([id number]) on 12/10/2019 1:59:38 PM Referred By: Evangelina EVANS Confirmed By:SCAR TRUJILLO MD
--- NOTE | 2019-12-10 14:15 | EKG ---
Test Reason : Blood Pressure : / mmHG Vent. Rate : 127 BPM Atrial Rate : 127 BPM P-R Int : 000 ms QRS Dur : 092 ms QT Int : 328 ms P-R-T Axes : 000 -25 114 degrees QTc Int : 476 ms UNDETERMINED RHYTHM ? SINUS TACHYCARDIA POSSIBLE ANTERIOR INFARCT , AGE UNDETERMINED ABNORMAL ECG NO PREVIOUS ECGS AVAILABLE Confirmed by SCAR TRUJILLO MD ([id number]) on 12/10/2019 2:14:49 PM Referred By: Confirmed By:SCAR TRUJILLO MD
--- NOTE | 2019-12-10 14:49 | PN ---
Progress Note (short form) - Note Progress Note: surgery 59m with multiple medical problems, on abx for infected leg ulcers, on regular diet, noted to have a reducible umbilical hernia. request was made for evaluation for inpatient repair. umbilical hernias need only be repaired if symptomatic. they should not be electively repaired while on abx for infection. will eval as outpt when not infected and if interested in surgery [phone]
--- NOTE | 2019-12-10 17:20 | PN ---
Teaching Attending Note Name of Resident: Lonnie Buitrago ATTENDING PHYSICIAN STATEMENT I saw and evaluated the patient. I reviewed the resident's note and discussed the case with the resident. I agree with the resident's findings and plan as documented. SUBJECTIVE: Patient is comfortable with no acute distress, no nausea or vomiting OBJECTIVE: Vital Signs Temperature 97.6 F 12/10/19 14:00 Pulse Rate 122 H 12/10/19 14:00 Respiratory Rate 24 H 12/10/19 14:00 Blood Pressure 128/80 12/10/19 14:00 O2 Sat by Pulse Oximetry (%) 97 12/09/19 22:00 PE: per resident's note + Umbilical hernia CBCD WBC 9.1 K/mm3 (4.0-10.0) 12/08/19 13:10 RBC 3.96 M/mm3 (4.00-5.60) L 12/08/19 13:10 Hgb 10.9 GM/dL (11.7-16.9) L 12/08/19 13:10 Hct 34.2 % (35.4-49) L 12/08/19 13:10 MCV 86.5 fl (80-96) 12/08/19 13:10 MCHC 31.9 g/dl (32.0-35.9) L 12/08/19 13:10 RDW 15.8 % (11.9-15.9) 12/08/19 13:10 Plt Count 294 K/MM3 (134-434) 12/08/19 13:10 MPV 8.0 fl (7.5-11.1) 12/08/19 13:10 CMP Sodium 141 mmol/L (136-145) 12/08/19 13:10 Potassium 4.4 mmol/L (3.5-5.1) 12/08/19 13:10 Chloride 105 mmol/L (98-107) 12/08/19 13:10 Carbon Dioxide 33 mmol/L (21-32) H 12/08/19 13:10 Anion Gap 3 MMOL/L (8-16) L 12/08/19 13:10 BUN 23.3 mg/dL (7-18) H 12/08/19 13:10 Creatinine 1.0 mg/dL (0.55-1.3) 12/08/19 13:10 Random Glucose 97 mg/dL (74-106) 12/08/19 13:10 Calcium 8.7 mg/dL (8.5-10.1) 12/08/19 13:10 Total Bilirubin 0.2 mg/dL (0.2-1) 12/08/19 13:10 AST 12 U/L (15-37) L 12/08/19 13:10 ALT 19 U/L (13-61) 12/08/19 13:10 Alkaline Phosphatase 36 U/L (45-117) L 12/08/19 13:10 Total Protein 6.6 g/dl (6.4-8.2) 12/08/19 13:10 Albumin 3.0 g/dl (3.4-5.0) L 12/08/19 13:10 Current Medications Generic Name Dose Route Start Last Admin Trade Name Freq PRN Reason Stop Dose Admin Acetaminophen 650 mg 12/08/19 15:32 Tylenol - PO Q6H PRN PAIN LEVEL 1-5 Amlodipine Besylate 10 mg 12/09/19 10:00 12/10/19 10:00 Norvasc - PO 10 mg DAILY [facility] Administration Aspirin 81 mg 12/09/19 10:45 12/10/19 10:00 Ecotrin - PO 81 mg DAILY [facility] Administration Atorvastatin Calcium 20 mg 12/10/19 22:00 Lipitor - PO HS [facility] Carvedilol 12.5 mg 12/09/19 10:45 12/10/19 10:00 Coreg - PO 12.5 mg DAILY [facility] Administration Enoxaparin Sodium 40 mg 12/09/19 10:00 12/10/19 10:00 Lovenox - SQ 40 mg DAILY [facility] Administration Gabapentin 800 mg 12/08/19 22:00 12/10/19 13:34 Neurontin - PO 800 mg TID [facility] Administration Vancomycin HCl 1,250 mg/ 250 mls @ 250 mls/2 hr 12/09/19 04:00 12/10/19 16:51 Dextrose IVPB 12/16/19 03:59 250 mls/2 hr Q12H [facility] Administration Piperacillin Sod/Tazobactam 50 mls @ 100 mls/hr 12/09/19 18:00 12/10/19 10:00 Sod 3.375 gm/ Dextrose IVPB 100 mls/hr Q8H-IV [facility] Administration Protocol Oxycodone HCl 5 mg 12/09/19 17:57 12/10/19 04:46 Roxicodone - PO 5 mg Q4H PRN Administration PAIN LEVEL 4 - 6 Oxycodone HCl 10 mg 12/09/19 17:59 12/10/19 16:55 Roxicodone - PO 10 mg Q6H PRN Administration PAIN LEVEL 7-10 Home Medications Medication Instructions Recorded Amlodipine Besylate 1 tab PO DAILY 07/14/19 Gabapentin 1 tab PO TID 07/14/19 Oxycodone HCl/Acetaminophen 1 tab PO PRN 08/29/19 [Oxycodone-Acetaminophen 10-325] Buprenorphine 5 mg TD WEEKLY 10/23/19 Naftifine HCl [Naftin] 60 gm TP DAILY #1 tube 10/31/19 Aspirin [Aspirin EC] 81 mg PO DAILY 12/08/19 Carvedilol 12.5 mg PO DAILY 12/08/19 Docusate Sodium [Colace] 100 mg PO DAILY 12/08/19 Melatonin 1 mg PO PRN 12/08/19 Torsemide 20 mg PO PRN 12/08/19 Microbiology 12/08/19 13:45 Leg - Left Lower Gram Stain - Final 12/08/19 13:45 Leg - Left Lower Wound Culture - Preliminary Non Lactose Fermenting Gnb Group D Strep Or Entero Coccus Presumptive Mssa (Pbp2a Neg) Diphtheroid/Corynebacterium 12/08/19 13:10 Blood - Peripheral Venous Blood Culture - Preliminary NO GROWTH OBTAINED AFTER 48 HOURS, INCUBATION TO CONTINUE FOR 3 DAYS. 12/08/19 13:10 Blood - Peripheral Venous Blood Culture - Preliminary NO GROWTH OBTAINED AFTER 48 HOURS, INCUBATION TO CONTINUE FOR 3 DAYS. left tibia and fibia xray: no osteomyelitis, no soft air accumulation , radioopaques foreign body identified. Assessment and plan: Patient has history of CM, CHF, and chronic wounds followed by wound clinic Dr. Lopez and Dr. Meyer, referred for IV ABx and admission. # Infected LLE ulcer: On IV antibiotics; zosyn and vanco, ID on the case , Cx as above, vanco trough prior to 4th dose , f/u xray , continue wound care #chronic venous stasis #HTN: continue coreg and amlodipine #HLD: continue lipitor #Hx of CM #Peripheral neuropathy: continue gabapentin #Class III obesity # Reducable Umbilical hernia: patient has an appointment with his surgeon. DVT prophylaxis with Lovenox Umbilical hernia he already has an appointment with surgeon outside for repair.
--- NOTE | 2019-12-10 17:24 | PN ---
Progress Note, Physician History of Present Illness: Pt still with swelling of LLE with drainage from ulcer and c/o some pain. - Current Medication List Current Medications: Active Medications Acetaminophen (Tylenol -) 650 mg PO Q6H PRN PRN Reason: PAIN LEVEL 1-5 Amlodipine Besylate (Norvasc -) 10 mg PO DAILY [facility] Last Admin: 12/10/19 10:00 Dose: 10 mg Documented by: Aspirin (Ecotrin -) 81 mg PO DAILY [facility] Last Admin: 12/10/19 10:00 Dose: 81 mg Documented by: Atorvastatin Calcium (Lipitor -) 20 mg PO [facility] Carvedilol (Coreg -) 12.5 mg PO DAILY [facility] Last Admin: 12/10/19 10:00 Dose: 12.5 mg Documented by: Enoxaparin Sodium (Lovenox -) 40 mg SQ DAILY [facility] Last Admin: 12/10/19 10:00 Dose: 40 mg Documented by: Gabapentin (Neurontin -) 800 mg PO TID [facility] Last Admin: 12/10/19 13:34 Dose: 800 mg Documented by: Vancomycin HCl 1,250 mg/ (Dextrose) 250 mls @ 250 mls/2 hr IVPB Q12H [facility] Stop: 12/16/19 03:59 Last Admin: 12/10/19 16:51 Dose: 250 mls/2 hr Documented by: Piperacillin Sod/Tazobactam (Sod 3.375 gm/ Dextrose) 50 mls @ 100 mls/hr IVPB Q8H-IV [facility]; Protocol Last Admin: 12/10/19 10:00 Dose: 100 mls/hr Documented by: Oxycodone HCl (Roxicodone -) 5 mg PO Q4H PRN PRN Reason: PAIN LEVEL 4 - 6 Last Admin: 12/10/19 04:46 Dose: 5 mg Documented by: Oxycodone HCl (Roxicodone -) 10 mg PO Q6H PRN PRN Reason: PAIN LEVEL 7-10 Last Admin: 12/10/19 16:55 Dose: 10 mg Documented by: - Objective Vital Signs: Vital Signs Temperature 97.6 F 12/10/19 14:00 Pulse Rate 122 H 12/10/19 14:00 Respiratory Rate 24 H 12/10/19 14:00 Blood Pressure 128/80 12/10/19 14:00 O2 Sat by Pulse Oximetry (%) 97 12/09/19 22:00 Constitutional: Yes: No Distress Cardiovascular: Yes: Regular Rate and Rhythm Respiratory: Yes: Regular Gastrointestinal: Yes: Normal Bowel Sounds, Soft, Abdomen, Obese Edema: LLE: 2+, RLE: 2+ Wound/Incision: Yes: Dressing Dry and Intact, Other (LE edema/erythema with draining LLE ulcer) Neurological: Yes: Alert, Oriented Labs: CBC, BMP 12/08/19 13:10 12/08/19 13:10 INR, PTT INR 1.06 (0.83-1.09) 12/08/19 13:10 Microbiology 12/08/19 13:45 Leg - Left Lower Gram Stain - Final 12/08/19 13:45 Leg - Left Lower Wound Culture - Preliminary Non Lactose Fermenting Gnb Group D Strep Or Entero Coccus Presumptive Mssa (Pbp2a Neg) Diphtheroid/Corynebacterium 12/08/19 13:10 Blood - Peripheral Venous Blood Culture - Preliminary NO GROWTH OBTAINED AFTER 48 HOURS, INCUBATION TO CONTINUE FOR 3 DAYS. 12/08/19 13:10 Blood - Peripheral Venous Blood Culture - Preliminary NO GROWTH OBTAINED AFTER 48 HOURS, INCUBATION TO CONTINUE FOR 3 DAYS. Problem List - Problems (1) Wound of lower extremity Code(s): S81.809A - UNSPECIFIED OPEN WOUND, UNSPECIFIED LOWER LEG, INIT ENCNTR Qualifiers: Qualified Code(s): S81.802A - Unspecified open wound, left lower leg, initial encounter (2) Venous stasis ulcers of both lower extremities Code(s): I83.019 - VARICOSE VEINS OF RIGHT LOWER EXTREMITY W ULCER OF UNSP SITE; I83.029 - VARICOSE VEINS OF LEFT LOWER EXTREMITY W ULCER OF UNSP SITE; L97.919 - NON-PRS CHRONIC ULC UNSP PRT OF R LOW LEG W UNSP SEVERITY; L97.929 - NON-PRS CHRONIC ULC UNSP PRT OF L LOW LEG W UNSP SEVERITY (3) Infected stasis ulcer of left lower extremity Code(s): I83.229 - VARICOS VN OF L LOW EXTREM W ULC OF UNSP SITE AND INFLAM; L97.929 - NON-PRS CHRONIC ULC UNSP PRT OF L LOW LEG W UNSP SEVERITY (4) Cardiomyopathy Code(s): I42.9 - CARDIOMYOPATHY, UNSPECIFIED (5) HTN (hypertension) Code(s): I10 - ESSENTIAL (PRIMARY) HYPERTENSION (6) HLD (hyperlipidemia) Code(s): E78.5 - HYPERLIPIDEMIA, UNSPECIFIED Assessment/Plan Infected LLE chronic ulcer b/l LE ulcers Venous stasis HTN HLD CM Morbid obesity Onychomycosis -- continue Zosyn/Vancomycin for now, wound culture with multiple organisms to be identified -- Vancomycine trough, cbc, bmp in a.m., monitor renal function -- continue wound care -- leg elevation
--- NOTE | 2019-12-10 19:00 | PN ---
Physical Exam: SUBJECTIVE: Patient seen and examined NISH Has intermittent shooting RLE pain from sciatica. Denies abd pain, nausea, vomiting. Feels constipated, which is chronic. OBJECTIVE: Vital Signs Period Temp Pulse Resp BP Sys/Ventura Pulse Ox Last 24 Hr 97.6 F-98.3 F 122-128 20-24 122-140/80-90 97 GENERAL: alert, fully oriented. Obese HEAD: Normal with no signs of trauma. EYES: sclera anicteric, conjunctiva clear. ENT: oropharynx clear without exudates, moist mucous membranes. NECK: Trachea midline, full range of motion, supple. LUNGS: Breath sounds equal, clear to auscultation bilaterally, no wheezes, no crackles, no accessory muscle use. HEART: Regular rate and rhythm, S1, S2 without murmur, rub or gallop. ABDOMEN: Soft, nontender, nondistended, no guarding, no rebound. Partially reducible umbilical hernia with overly skin erythema, nonTTP. EXTREMITIES: 1+ DP pulses. BLE evans ulcerations, LLE with ~5cm patch of ulceration with thin serous drainage. No foul smell. Painful stimuli felt to bl feet NEUROLOGICAL: Normal speech. Laboratory Results - last 24 hr 12/08/19 16:50 COVID-19 (EL) Not detected Active Medications Generic Name Dose Route Start Last Admin Trade Name Freq PRN Reason Stop Dose Admin Acetaminophen 650 mg 12/08/19 15:32 Tylenol - PO Q6H PRN PAIN LEVEL 1-5 Amlodipine Besylate 10 mg 12/09/19 10:00 12/10/19 10:00 Norvasc - PO 10 mg DAILY GURMEET Administration Aspirin 81 mg 12/09/19 10:45 12/10/19 10:00 Ecotrin - PO 81 mg DAILY GURMEET Administration Atorvastatin Calcium 20 mg 12/10/19 22:00 Lipitor - PO HS GURMEET Carvedilol 12.5 mg 12/09/19 10:45 12/10/19 10:00 Coreg - PO 12.5 mg DAILY GURMEET Administration Enoxaparin Sodium 40 mg 12/09/19 10:00 12/10/19 10:00 Lovenox - SQ 40 mg DAILY GURMEET Administration Gabapentin 800 mg 12/08/19 22:00 12/10/19 13:34 Neurontin - PO 800 mg TID GURMEET Administration Vancomycin HCl 1,250 mg/ 250 mls @ 250 mls/2 hr 12/09/19 04:00 12/10/19 16:51 Dextrose IVPB 12/16/19 03:59 250 mls/2 hr Q12H GURMEET Administration Piperacillin Sod/Tazobactam 50 mls @ 100 mls/hr 12/09/19 18:00 12/10/19 10:00 Sod 3.375 gm/ Dextrose IVPB 100 mls/hr Q8H-IV GURMEET Administration Protocol Oxycodone HCl 5 mg 12/09/19 17:57 12/10/19 04:46 Roxicodone - PO 5 mg Q4H PRN Administration PAIN LEVEL 4 - 6 Oxycodone HCl 10 mg 12/09/19 17:59 12/10/19 16:55 Roxicodone - PO 10 mg Q6H PRN Administration PAIN LEVEL 7-10 ASSESSMENT/PLAN: 59M w/ pmh of CM, CHF, and chronic BLE wounds(> 2ys) referred to [facility] for BLE wounds by Dr Meyer for recommendation of IV abx. #chronic venous congestion with LLE cellulitis > BCX(12/08/19): NGTD > LLE CX(12/08/19): nonlactose ferment GNB, group D strep, MSSA, diphtheroid/corynebacterium - pain regimen: gabapentin, acetaminophen, oxycodone 10 - ID consult(Betsy): --zosyn + vanc #chronic umbilical hernia --nonobstructing and asymptomatic - pt has [facility] appt for Lap UHR on 12/12/19 - Surg Consult(Sae): --only repair if symptomatic --no elective repair while getting abx for infection #BLE neuropathy - cw gabapentin #HTN - cw norvasc #CHF - cw coreg, atorvastatin FEN - sodium controlled diet - lovenox Visit type - Emergency Visit Emergency Visit: No - New Patient This patient is new to me today: Yes Date on this admission: 12/10/19 - Critical Care Critical Care patient: No ATTENDING PHYSICIAN STATEMENT I saw and evaluated the patient. I reviewed the resident's note and discussed the case with the resident. I agree with the resident's findings and plan as documented. SUBJECTIVE: OBJECTIVE: ASSESSMENT AND PLAN:
[2019-12-10] MEDS: ATORVASTATIN CA 20 MG TABLET (FP) PO SCH (21:20)
[2019-12-11] MEDS: PIPERACILLIN/TAZOB 3.375 GM 3.375 GM in DEXTROSE 5%-WATER - 50 ML IVPB SCH ×3 (01:25→18:03)
[2019-12-11] MEDS: GABAPENTIN 400 MG CAPSULE PO SCH ×3 (05:52→22:46)
[2019-12-11 09:38] LABS: BASO % 0.7 % (0-2.0); EOS % 6.3 % (0-4.5); HEMATOCRIT 37.1 % (35.4-49); HEMOGLOBIN 11.7 GM/dL (11.7-16.9); LYMPH % 18.9 % (8-40); MCH 27.3 pg (25.7-33.7); MCHC 31.5 g/dl (32.0-35.9); MEAN CELL VOLUME 86.8 fl (80-96); MEAN PLT VOLUME 7.9 fl (7.5-11.1); MONO % 5.7 % (3.8-10.2); NEUT % 68.4 % (42.8-82.8); PLATELET COUNT 267 K/MM3 (134-434); RBC 4.27 M/mm3 (4.00-5.60); RDW 16.2 % (11.9-15.9); WHITE BLOOD COUNT 6.9 K/mm3 (4.0-10.0)
[2019-12-11] MEDS: ENOXAPARIN NA (PORCINE) 40 MG/0.4 ML DISP.SYRIN SQ SCH (09:57)
--- NOTE | 2019-12-11 09:57 | PN ---
Teaching Attending Note Name of Resident: Bronson Laguerre ATTENDING PHYSICIAN STATEMENT I saw and evaluated the patient. I reviewed the resident's note and discussed the case with the resident. I agree with the resident's findings and plan as documented. SUBJECTIVE: Patient has no fever, lying in bed with no acute distress OBJECTIVE: Vital Signs Temperature 97.6 F 12/11/19 06:00 Pulse Rate 120 H 12/11/19 06:00 Respiratory Rate 20 12/11/19 06:00 Blood Pressure 134/92 12/11/19 06:00 O2 Sat by Pulse Oximetry (%) 97 12/09/19 22:00 PE: per resident's note + umbilical hernia , prodruded x 3 weeks but no encarseration as per surgery , purple discoloration CBCD WBC 6.9 K/mm3 (4.0-10.0) 12/11/19 08:30 RBC 4.27 M/mm3 (4.00-5.60) 12/11/19 08:30 Hgb 11.7 GM/dL (11.7-16.9) 12/11/19 08:30 Hct 37.1 % (35.4-49) 12/11/19 08:30 MCV 86.8 fl (80-96) 12/11/19 08:30 MCHC 31.5 g/dl (32.0-35.9) L 12/11/19 08:30 RDW 16.2 % (11.9-15.9) H 12/11/19 08:30 Plt Count 267 K/MM3 (134-434) 12/11/19 08:30 MPV 7.9 fl (7.5-11.1) 12/11/19 08:30 CMP Sodium 141 mmol/L (136-145) 12/08/19 13:10 Potassium 4.4 mmol/L (3.5-5.1) 12/08/19 13:10 Chloride 105 mmol/L (98-107) 12/08/19 13:10 Carbon Dioxide 33 mmol/L (21-32) H 12/08/19 13:10 Anion Gap 3 MMOL/L (8-16) L 12/08/19 13:10 BUN 23.3 mg/dL (7-18) H 12/08/19 13:10 Creatinine 1.0 mg/dL (0.55-1.3) 12/08/19 13:10 Random Glucose 97 mg/dL (74-106) 12/08/19 13:10 Calcium 8.7 mg/dL (8.5-10.1) 12/08/19 13:10 Total Bilirubin 0.2 mg/dL (0.2-1) 12/08/19 13:10 AST 12 U/L (15-37) L 12/08/19 13:10 ALT 19 U/L (13-61) 12/08/19 13:10 Alkaline Phosphatase 36 U/L (45-117) L 12/08/19 13:10 Total Protein 6.6 g/dl (6.4-8.2) 12/08/19 13:10 Albumin 3.0 g/dl (3.4-5.0) L 12/08/19 13:10 Current Medications Generic Name Dose Route Start Last Admin Trade Name Freq PRN Reason Stop Dose Admin Acetaminophen 650 mg 12/08/19 15:32 Tylenol - PO Q6H PRN PAIN LEVEL 1-5 Amlodipine Besylate 10 mg 12/09/19 10:00 12/10/19 10:00 Norvasc - PO 10 mg DAILY GURMEET Administration Aspirin 81 mg 12/09/19 10:45 12/10/19 10:00 Ecotrin - PO 81 mg DAILY GURMEET Administration Atorvastatin Calcium 20 mg 12/10/19 22:00 12/10/19 21:20 Lipitor - PO 20 mg HS GURMEET Administration Carvedilol 12.5 mg 12/09/19 10:45 12/10/19 10:00 Coreg - PO 12.5 mg DAILY GURMEET Administration Enoxaparin Sodium 40 mg 12/09/19 10:00 12/10/19 10:00 Lovenox - SQ 40 mg DAILY GURMEET Administration Gabapentin 800 mg 12/08/19 22:00 12/11/19 05:52 Neurontin - PO 800 mg TID GURMEET Administration Vancomycin HCl 1,250 mg/ 250 mls @ 250 mls/2 hr 12/09/19 04:00 12/10/19 16:51 Dextrose IVPB 12/16/19 03:59 250 mls/2 hr Q12H GURMEET Administration Piperacillin Sod/Tazobactam 50 mls @ 100 mls/hr 12/09/19 18:00 12/11/19 01:25 Sod 3.375 gm/ Dextrose IVPB 100 mls/hr Q8H-IV GURMEET Administration Protocol Oxycodone HCl 5 mg 12/09/19 17:57 12/10/19 23:18 Roxicodone - PO 5 mg Q4H PRN Administration PAIN LEVEL 4 - 6 Oxycodone HCl 10 mg 12/09/19 17:59 12/10/19 16:55 Roxicodone - PO 10 mg Q6H PRN Administration PAIN LEVEL 7-10 Home Medications Medication Instructions Recorded Amlodipine Besylate 1 tab PO DAILY 07/14/19 Gabapentin 1 tab PO TID 07/14/19 Oxycodone HCl/Acetaminophen 1 tab PO PRN 08/29/19 [Oxycodone-Acetaminophen 10-325] Buprenorphine 5 mg TD WEEKLY 10/23/19 Naftifine HCl [Naftin] 60 gm TP DAILY #1 tube 10/31/19 Aspirin [Aspirin EC] 81 mg PO DAILY 12/08/19 Carvedilol 12.5 mg PO DAILY 12/08/19 Docusate Sodium [Colace] 100 mg PO DAILY 12/08/19 Melatonin 1 mg PO PRN 12/08/19 Torsemide 20 mg PO PRN 12/08/19 Microbiology 12/08/19 13:45 Leg - Left Lower Gram Stain - Final 12/08/19 13:45 Leg - Left Lower Wound Culture - Preliminary Non Lactose Fermenting Gnb Group D Strep Or Entero Coccus Presumptive Mssa (Pbp2a Neg) Diphtheroid/Corynebacterium 12/08/19 13:10 Blood - Peripheral Venous Blood Culture - Preliminary NO GROWTH OBTAINED AFTER 48 HOURS, INCUBATION TO CONTINUE FOR 3 DAYS. 12/08/19 13:10 Blood - Peripheral Venous Blood Culture - Preliminary NO GROWTH OBTAINED AFTER 48 HOURS, INCUBATION TO CONTINUE FOR 3 DAYS. left tibia and fibia xray: no osteomyelitis, no soft air accumulation , radioopaques foreign body identified. Assessment and plan: Patient has history of CM, CHF, and chronic wounds followed by wound clinic Dr. Lopez and Dr. Meyer, referred for IV ABx and admission. # Infected LLE ulcer: On IV antibiotics; zosyn and vanco, ID on the case , Cx as above, vanco trough prior to 4th dose , f/u xray , continue wound care , Dr Meyer on the case #chronic venous stasis #HTN: continue coreg and amlodipine #HLD: continue lipitor #Hx of CM #Peripheral neuropathy: continue gabapentin #Class III obesity # Reducable Umbilical hernia: patient has an appointment with his surgeon. DVT prophylaxis with Lovenox Umbilical hernia he already has an appointment with surgeon outside for repair.
[2019-12-11] MEDS: ASPIRIN COATED 81 MG TABLET.EC PO SCH (10:01)
[2019-12-11] MEDS: CARVEDILOL 12.5 MG TABLET (FP) PO SCH (10:01)
[2019-12-11] MEDS: amLODIPine BESYLATE 10 MG TABLET (FP) PO SCH (10:01)
[2019-12-11 10:03] LABS: POTASSIUM 3.6 mmol/L (3.5-5.1)
[2019-12-11 10:21] LABS: CALCIUM 8.2 mg/dL (8.5-10.1); CREATININE 0.9 mg/dL (0.55-1.3)
[2019-12-11] MEDS: VANCOMYCIN HCL 1,250 MG in DEXTROSE 5%-WATER - 250 ML IVPB SCH (11:43)
[2019-12-11] MEDS ORDERED: VANCOMYCIN HCL 1,500 MG in DEXTROSE 5%-WATER - 500 ML IVPB SCH (12:00)
--- NOTE | 2019-12-11 12:17 | PN ---
Progress Note, Physician History of Present Illness: feeling a bit cold chills legs feel better - Current Medication List Current Medications: Active Medications Acetaminophen (Tylenol -) 650 mg PO Q6H PRN PRN Reason: PAIN LEVEL 1-5 Amlodipine Besylate (Norvasc -) 10 mg PO DAILY [facility] Last Admin: 12/11/19 10:01 Dose: 10 mg Documented by: Aspirin (Ecotrin -) 81 mg PO DAILY [facility] Last Admin: 12/11/19 10:01 Dose: 81 mg Documented by: Atorvastatin Calcium (Lipitor -) 20 mg PO HS [facility] Last Admin: 12/10/19 21:20 Dose: 20 mg Documented by: Carvedilol (Coreg -) 12.5 mg PO DAILY [facility] Last Admin: 12/11/19 10:01 Dose: 12.5 mg Documented by: Enoxaparin Sodium (Lovenox -) 40 mg SQ DAILY [facility] Last Admin: 12/11/19 09:57 Dose: 40 mg Documented by: Gabapentin (Neurontin -) 800 mg PO TID [facility] Last Admin: 12/11/19 05:52 Dose: 800 mg Documented by: Piperacillin Sod/Tazobactam (Sod 3.375 gm/ Dextrose) 50 mls @ 100 mls/hr IVPB Q8H-IV [facility]; Protocol Last Admin: 12/11/19 09:57 Dose: 100 mls/hr Documented by: Vancomycin HCl 1,500 mg/ (Dextrose) 500 mls @ 250 mls/hr IVPB Q12H [facility] Stop: 12/16/19 11:59 Oxycodone HCl (Roxicodone -) 5 mg PO Q4H PRN PRN Reason: PAIN LEVEL 4 - 6 Last Admin: 12/10/19 23:18 Dose: 5 mg Documented by: Oxycodone HCl (Roxicodone -) 10 mg PO Q6H PRN PRN Reason: PAIN LEVEL 7-10 Last Admin: 12/10/19 16:55 Dose: 10 mg Documented by: - Objective Vital Signs: Vital Signs Temperature 97.6 F 12/11/19 06:00 Pulse Rate 120 H 12/11/19 06:00 Respiratory Rate 20 12/11/19 06:00 Blood Pressure 134/92 12/11/19 06:00 O2 Sat by Pulse Oximetry (%) 97 12/09/19 22:00 Constitutional: Yes: Mild Distress, Obese (morbid), Other (chills) Eyes: Yes: Conjunctiva Clear Cardiovascular: Yes: S1, S2 Respiratory: Yes: Regular, CTA Bilaterally Gastrointestinal: Yes: Normal Bowel Sounds, Soft Musculoskeletal: Yes: WNL Extremities: Yes: Erythema, Other Integumentary: Yes: Erythema, Other Wound/Incision: Yes: Dressing Dry and Intact Neurological: Yes: Alert, Oriented Psychiatric: Yes: Alert, Oriented Labs: CBC, BMP 12/11/19 08:30 12/11/19 08:30 INR, PTT INR 1.06 (0.83-1.09) 12/08/19 13:10 Assessment/Plan Problem List - Problems (1) Wound of lower extremity Code(s): S81.809A - UNSPECIFIED OPEN WOUND, UNSPECIFIED LOWER LEG, INIT ENCNTR Qualifiers: Qualified Code(s): S81.802A - Unspecified open wound, left lower leg, initial encounter (2) Venous stasis ulcers of both lower extremities Code(s): I83.019 - VARICOSE VEINS OF RIGHT LOWER EXTREMITY W ULCER OF UNSP SITE; I83.029 - VARICOSE VEINS OF LEFT LOWER EXTREMITY W ULCER OF UNSP SITE; L97.919 - NON-PRS CHRONIC ULC UNSP PRT OF R LOW LEG W UNSP SEVERITY; L97.929 - NON-PRS CHRONIC ULC UNSP PRT OF L LOW LEG W UNSP SEVERITY (3) Infected stasis ulcer of left lower extremity Code(s): I83.229 - VARICOS VN OF L LOW EXTREM W ULC OF UNSP SITE AND INFLAM; L97.929 - NON-PRS CHRONIC ULC UNSP PRT OF L LOW LEG W UNSP SEVERITY (4) Cardiomyopathy Code(s): I42.9 - CARDIOMYOPATHY, UNSPECIFIED (5) HTN (hypertension) Code(s): I10 - ESSENTIAL (PRIMARY) HYPERTENSION (6) HLD (hyperlipidemia) Code(s): E78.5 - HYPERLIPIDEMIA, UNSPECIFIED Assessment/Plan Infected LLE chronic ulcer b/l LE ulcers Venous stasis HTN HLD CM Morbid obesity Onychomycosis prelim cx results noted will stop vanco continue zosyn wound cx reports awaited final and sensitivites wound care
[2019-12-11] MEDS: oxyCODONE HCL 5 MG TABLET PO PRN (13:33)
--- NOTE | 2019-12-11 18:07 | PN ---
Physical Exam: SUBJECTIVE: Patient seen and examined OBJECTIVE: Vital Signs Period Temp Pulse Resp BP Sys/Ventura Pulse Ox Last 24 Hr 97.6 F-98.8 F 120-126 20-20 128-145/79-92 GENERAL: Alert and oriented, very obese HEAD: Normal with no signs of trauma. LUNGS: Breath sounds equal, clear to auscultation bilaterally, no wheezes, no crackles, no accessory muscle use. HEART: Regular rate and rhythm, S1, S2 without murmur, rub or gallop. ABDOMEN: Soft, nontender, nondistended, no guarding, no rebound. Partially reducible umbilical hernia EXTREMITIES: DP pulses not appreciated but LE are warm and well perfused. BLE evans ulcerations, LLE with ~5cm patch of ulceration with thin serous drainage. No foul smell. Painful stimuli felt to bl feet NEUROLOGICAL: Normal speech. Laboratory Results - last 24 hr 12/11/19 12/11/19 12/11/19 05:00 08:30 08:30 WBC 6.9 RBC 4.27 Hgb 11.7 Hct 37.1 MCV 86.8 MCH 27.3 MCHC 31.5 L RDW 16.2 H Plt Count 267 MPV 7.9 Absolute Neuts (auto) 4.7 Neutrophils % 68.4 Lymphocytes % 18.9 D Monocytes % 5.7 Eosinophils % 6.3 H Basophils % 0.7 Nucleated RBC % 0 Sodium 140 Potassium 3.6 Chloride 104 Carbon Dioxide 29 Anion Gap 8 BUN 11.0 Creatinine 0.9 Est GFR (CKD-EPI)AfAm 109.50 Est GFR (CKD-EPI)NonAf 94.48 Random Glucose 117 H Calcium 8.2 L Vancomycin Pre-Dose 7.4 Active Medications Generic Name Dose Route Start Last Admin Trade Name Freq PRN Reason Stop Dose Admin Acetaminophen 650 mg 12/08/19 15:32 Tylenol - PO Q6H PRN PAIN LEVEL 1-5 Amlodipine Besylate 10 mg 12/09/19 10:00 12/11/19 10:01 Norvasc - PO 10 mg DAILY GURMEET Administration Aspirin 81 mg 12/09/19 10:45 12/11/19 10:01 Ecotrin - PO 81 mg DAILY GURMEET Administration Atorvastatin Calcium 20 mg 12/10/19 22:00 12/10/19 21:20 Lipitor - PO 20 mg HS GURMEET Administration Carvedilol 12.5 mg 12/09/19 10:45 12/11/19 10:01 Coreg - PO 12.5 mg DAILY GURMEET Administration Enoxaparin Sodium 40 mg 12/09/19 10:00 12/11/19 09:57 Lovenox - SQ 40 mg DAILY [facility]URMEET Administration Gabapentin 800 mg 12/08/19 22:00 12/11/19 14:55 Neurontin - PO 800 mg TID GURMEET Administration Piperacillin Sod/Tazobactam 50 mls @ 100 mls/hr 12/09/19 18:00 12/11/19 09:57 Sod 3.375 gm/ Dextrose IVPB 100 mls/hr Q8H-IV [facility]ET Administration Protocol Oxycodone HCl 5 mg 12/09/19 17:57 12/10/19 23:18 Roxicodone - PO 5 mg Q4H PRN Administration PAIN LEVEL 4 - 6 Oxycodone HCl 10 mg 12/09/19 17:59 12/11/19 13:33 Roxicodone - PO 10 mg Q6H PRN Administration PAIN LEVEL 7-10 ASSESSMENT/PLAN: 59M w/ pmh of CM, CHF, and chronic BLE wounds(> 2ys) referred to [facility] for BLE wounds by Dr Meyer for recommendation of IV abx. Chronic venous congestion with LLE cellulitis BCX(12/08/19): NGTD LLE CX(12/08/19): nonlactose ferment GNB, group D strep, MSSA, diphtheroid/corynebacterium pain regimen: gabapentin, acetaminophen, oxycodone 5/10 ID consult (Betsy): Prelim CS + for Group D Strep or Entero Coccus, Presumptive MSSA, Diptheroid/Corynebacterium Vanc d/c today Continue IV Zoysn Day 3 Chronic umbilical hernia --nonobstructing and asymptomatic pt has [facility] appt for Lap UHR on 12/12/19 Surg Consult(Sae): --only repair if symptomatic --no elective repair while getting abx for infection BLE neuropathy cw gabapentin HTN cw norvasc CHF cw coreg, atorvastatin FEN sodium controlled diet lovenox Visit type - Emergency Visit Emergency Visit: Yes ED Registration Date: 12/08/19 Care time: The patient presented to the Emergency Department on the above date and was hospitalized for further evaluation of their emergent condition. - New Patient This patient is new to me today: No - Critical Care Critical Care patient: No - Discharge Referral Referred to [facility] Med P.C.: Yes Physician Referral: Isiah Lopez DO ([facility]) ATTENDING PHYSICIAN STATEMENT I saw and evaluated the patient. I reviewed the resident's note and discussed the case with the resident. I agree with the resident's findings and plan as documented. SUBJECTIVE: OBJECTIVE: ASSESSMENT AND PLAN:
[2019-12-11] MEDS: ATORVASTATIN CA 20 MG TABLET (FP) PO SCH (22:46)
[2019-12-12] MEDS: PIPERACILLIN/TAZOB 3.375 GM 3.375 GM in DEXTROSE 5%-WATER - 50 ML IVPB SCH ×3 (02:06→18:09)
[2019-12-12] MEDS: oxyCODONE HCL 5 MG TABLET PO PRN (04:11)
[2019-12-12] MEDS: GABAPENTIN 400 MG CAPSULE PO SCH ×3 (06:30→21:59)
[2019-12-12 08:28] LABS: EOS % 4.9 % (0-4.5); HEMATOCRIT 34.8 % (35.4-49); HEMOGLOBIN 11.3 GM/dL (11.7-16.9); LYMPH % 20.2 % (8-40); MCH 28.4 pg (25.7-33.7); MCHC 32.5 g/dl (32.0-35.9); MEAN CELL VOLUME 87.4 fl (80-96); MEAN PLT VOLUME 8.1 fl (7.5-11.1); NEUT % 65.9 % (42.8-82.8); PLATELET COUNT 265 K/MM3 (134-434); RBC 3.98 M/mm3 (4.00-5.60); RDW 16.1 % (11.9-15.9); WHITE BLOOD COUNT 7.1 K/mm3 (4.0-10.0)
[2019-12-12 08:40] LABS: BLOOD UREA NITROGEN 12.2 mg/dL (7-18); CALCIUM 8.3 mg/dL (8.5-10.1); CREATININE 0.8 mg/dL (0.55-1.3); MAGNESIUM 2.5 mg/dL (1.8-2.4)
[2019-12-12] MEDS ORDERED: PIPERACILLIN/TAZOBACTAM 3.375 GM VIAL IVPB ONE ×2 (09:55→17:21)
[2019-12-12] MEDS ORDERED: DEXTROSE 5%-WATER - 50 ML IVPB ONE ×2 (09:55→17:21)
[2019-12-12] MEDS: CARVEDILOL 12.5 MG TABLET (FP) PO SCH ×2 (10:41→21:58)
[2019-12-12] MEDS: ENOXAPARIN NA (PORCINE) 40 MG/0.4 ML DISP.SYRIN SQ SCH (10:41)
[2019-12-12] MEDS: ASPIRIN COATED 81 MG TABLET.EC PO SCH (10:41)
[2019-12-12] MEDS: amLODIPine BESYLATE 10 MG TABLET (FP) PO SCH (10:41)
--- NOTE | 2019-12-12 12:27 | PN ---
Progress Note, Physician History of Present Illness: no complaints - Current Medication List Current Medications: Active Medications Acetaminophen (Tylenol -) 650 mg PO Q6H PRN PRN Reason: PAIN LEVEL 1-5 Amlodipine Besylate (Norvasc -) 10 mg PO DAILY [facility] Last Admin: 12/12/19 10:41 Dose: 10 mg Documented by: Aspirin (Ecotrin -) 81 mg PO DAILY [facility] Last Admin: 12/12/19 10:41 Dose: 81 mg Documented by: Atorvastatin Calcium (Lipitor -) 20 mg PO HS [facility] Last Admin: 12/11/19 22:46 Dose: 20 mg Documented by: Carvedilol (Coreg -) 12.5 mg PO DAILY [facility] Last Admin: 12/12/19 10:41 Dose: 12.5 mg Documented by: Enoxaparin Sodium (Lovenox -) 40 mg SQ DAILY [facility] Last Admin: 12/12/19 10:41 Dose: 40 mg Documented by: Gabapentin (Neurontin -) 800 mg PO TID [facility] Last Admin: 12/12/19 06:30 Dose: 800 mg Documented by: Piperacillin Sod/Tazobactam (Sod 3.375 gm/ Dextrose) 50 mls @ 100 mls/hr IVPB Q8H-IV [facility]; Protocol Last Admin: 12/12/19 10:41 Dose: 100 mls/hr Documented by: Oxycodone HCl (Roxicodone -) 5 mg PO Q4H PRN PRN Reason: PAIN LEVEL 4 - 6 Last Admin: 12/10/19 23:18 Dose: 5 mg Documented by: Oxycodone HCl (Roxicodone -) 10 mg PO Q6H PRN PRN Reason: PAIN LEVEL 7-10 Last Admin: 12/12/19 04:11 Dose: 10 mg Documented by: - Objective Vital Signs: Vital Signs Temperature 97.7 F 12/12/19 05:00 Pulse Rate 120 H 12/12/19 05:00 Respiratory Rate 20 12/11/19 20:49 Blood Pressure 139/86 12/12/19 05:00 O2 Sat by Pulse Oximetry (%) 96 12/12/19 01:00 Constitutional: Yes: No Distress, Calm, Obese Eyes: Yes: Conjunctiva Clear Neck: Yes: Supple, Trachea Midline Cardiovascular: Yes: Regular Rate and Rhythm Respiratory: Yes: Regular, CTA Bilaterally Gastrointestinal: Yes: Normal Bowel Sounds, Soft Musculoskeletal: Yes: WNL Extremities: Yes: Other Neurological: Yes: Alert, Oriented Psychiatric: Yes: Alert, Oriented Labs: CBC, BMP 12/12/19 06:30 12/12/19 06:30 INR, PTT INR 1.06 (0.83-1.09) 12/08/19 13:10 Assessment/Plan Problem List - Problems (1) Wound of lower extremity Code(s): S81.809A - UNSPECIFIED OPEN WOUND, UNSPECIFIED LOWER LEG, INIT ENCNTR Qualifiers: Qualified Code(s): S81.802A - Unspecified open wound, left lower leg, initial encounter (2) Venous stasis ulcers of both lower extremities Code(s): I83.019 - VARICOSE VEINS OF RIGHT LOWER EXTREMITY W ULCER OF UNSP SITE; I83.029 - VARICOSE VEINS OF LEFT LOWER EXTREMITY W ULCER OF UNSP SITE; L97.919 - NON-PRS CHRONIC ULC UNSP PRT OF R LOW LEG W UNSP SEVERITY; L97.929 - NON-PRS CH RONIC ULC UNSP PRT OF L LOW LEG W UNSP SEVERITY (3) Infected stasis ulcer of left lower extremity Code(s): I83.229 - VARICOS VN OF L LOW EXTREM W ULC OF UNSP SITE AND INFLAM; L97.929 - NON-PRS CHRONIC ULC UNSP PRT OF L LOW LEG W UNSP SEVERITY (4) Cardiomyopathy Code(s): I42.9 - CARDIOMYOPATHY, UNSPECIFIED (5) HTN (hypertension) Code(s): I10 - ESSENTIAL (PRIMARY) HYPERTENSION (6) HLD (hyperlipidemia) Code(s): E78.5 - HYPERLIPIDEMIA, UNSPECIFIED Assessment/Plan Infected LLE chronic ulcer b/l LE ulcers Venous stasis HTN HLD CM Morbid obesity Onychomycosis continue abx wound cx rest as per the team await for identification of the organisms
[2019-12-12] MEDS: SODIUM CHLORIDE 1,000 ML IV SCH (15:37)
--- NOTE | 2019-12-12 16:20 | CONSULT ---
- Consultation REQUESTING PROVIDER: CONSULT REQUEST: We have been asked to surgically evaluate this patient for b/l le venous stasis ulcers PCP:Arslan Barlow HISTORY OF PRESENT ILLNESS: 59 y/o M w/ PMHx non-ischemic CM, CHF, chronic bilateral LE ulcers sent for admission by ID (Dr. Meyer) for IV ABX. Pt follows closely in wound care, was seen by Dr Lopez last week. Pt reports he has had b/l le ulcers for the past 2 years. Has been seeing Dr Lopez in wound care frequently. States wounds have worsened over the past 3 weeks and he has noticed increased drainage and pain. Has [employer] ATTEND[employer], however reports his experience is "limited". Denies fever/chills, n/v/d. Denies chest pain, SOB, abd pain. Unable to ambulate due to spinal issues. Has not ambulated in 2 years (uses wheel chair). PMHx: as above PSHx: denies Home Medications Medication Instructions Recorded Amlodipine Besylate 1 tab PO DAILY 07/14/19 Gabapentin 1 tab PO TID PRN 07/14/19 Oxycodone HCl/Acetaminophen 5 - 325 tab PO TID PRN 08/29/19 [Oxycodone-Acetaminophen 10-325] Buprenorphine 5 mg TD WEEKLY 10/23/19 Naftifine HCl [Naftin] 60 gm TP DAILY #1 tube 10/31/19 Aspirin [Aspirin EC] 81 mg PO DAILY 12/08/19 Carvedilol 12.5 mg PO DAILY 12/08/19 Docusate Sodium [Colace] 100 mg PO DAILY 12/08/19 Melatonin 1 mg PO PRN 12/08/19 Torsemide 20 mg PO PRN PRN 12/08/19 Allergies Allergy/AdvReac Type Severity Reaction Status Date / Time CORIE Inhibitors Allergy Verified 11/20/19 11:27 enalapril Allergy Verified 11/20/19 11:27 REVIEW OF SYSTEMS: CONSTITUTIONAL: Absent: fever, chills CARDIOVASCULAR: Absent: chest pain, syncope RESPIRATORY: Absent: cough, shortness of breath GASTROINTESTINAL: Absent: abdominal pain PHYSICAL EXAM: GENERAL: Awake, alert, and fully oriented, in no acute distress. HEAD: Normal with no signs of trauma. LUNGS: No accessory muscle use on RA ABDOMEN: Soft, nontender, not distended, +umbilical hernia, nontender, reducible with excoriated skin overlying LOWER EXTREMITIES: LLE with approx 4x4cm superficial venous stasis wound on late ral aspect of evans (fibrinous exudate overlying) scant serous drainiage. + mild erythema surrounding no foul odor, trace edema b/l. RLE with multiple small venous stasis ulcers (superficial) over anterior evans, + fibrinous exudate, scant serous drainage. Mild erythema. Vas: Palpable dp b/l (1+ due to pedal edema) Vital Signs Temperature 98.0 F 12/12/19 14:38 Pulse Rate 124 H 12/12/19 14:38 Respiratory Rate 19 12/12/19 14:38 Blood Pressure 134/92 12/12/19 14:38 O2 Sat by Pulse Oximetry (%) 98 12/12/19 09:00 Lab Results WBC 7.1 K/mm3 (4.0-10.0) 12/12/19 06:30 RBC 3.98 M/mm3 (4.00-5.60) L 12/12/19 06:30 Hgb 11.3 GM/dL (11.7-16.9) L 12/12/19 06:30 Hct 34.8 % (35.4-49) L 12/12/19 06:30 MCV 87.4 fl (80-96) 12/12/19 06:30 MCHC 32.5 g/dl (32.0-35.9) 12/12/19 06:30 RDW 16.1 % (11.9-15.9) H 12/12/19 06:30 Plt Count 265 K/MM3 (134-434) 12/12/19 06:30 INR 1.06 (0.83-1.09) 12/08/19 13:10 Sodium 142 mmol/L (136-145) 12/12/19 06:30 Potassium 4.0 mmol/L (3.5-5.1) 12/12/19 06:30 Chloride 106 mmol/L (98-107) 12/12/19 06:30 Carbon Dioxide 28 mmol/L (21-32) 12/12/19 06:30 Anion Gap 7 MMOL/L (8-16) L 12/12/19 06:30 BUN 12.2 mg/dL (7-18) 12/12/19 06:30 Creatinine 0.8 mg/dL (0.55-1.3) 12/12/19 06:30 Random Glucose 95 mg/dL (74-106) 12/12/19 06:30 Calcium 8.3 mg/dL (8.5-10.1) L 12/12/19 06:30 A/P: 59 y/o M w/ PMHx non-ischemic CM, CHF, chronic bilateral LE ulcers sent for admission by ID (Dr. Meyer) for IV ABX. B/L venous stasis wounds -Continue antibiotics per ID/medical team -Elevate the lower extremity above the level of the heart at all times while at rest -Bilateral compression with corie wraps once cellulitis has receded (wrap from metacarpal heads to below knee) -Santyl to wounds, cover with damp to dry 4x4s and kerlix d/w attending Dr Lopez
--- NOTE | 2019-12-12 16:22 | PN ---
Physical Exam: SUBJECTIVE: Patient seen and examined bedside in no acute distress. Patient upset that his coreg was not being given twice a day. OBJECTIVE: Vital Signs Vital Signs - 8 hr 12/12/19 12/12/19 12/12/19 09:00 10:00 14:38 Temperature 98.4 F 98.0 F Pulse Rate 124 H 124 H Respiratory 19 19 19 Rate Blood Pressure 139/90 134/92 O2 Sat by Pulse 98 Oximetry (%) GENERAL: Alert and oriented, very obese HEAD: Normal with no signs of trauma. LUNGS: Breath sounds equal, clear to auscultation bilaterally, no wheezes, no crackles, no accessory muscle use. HEART: Regular rate and rhythm, S1, S2 without murmur, rub or gallop. ABDOMEN: Soft, nontender, nondistended, no guarding, no rebound. Partially reducible umbilical hernia. EXTREMITIES: BLE evans ulcerations with serous drainage, no obvious purulent discharge, they are improving NEUROLOGICAL: Normal speech. Laboratory Results - last 24 hr 12/12/19 12/12/19 06:30 06:30 WBC 7.1 RBC 3.98 L Hgb 11.3 L Hct 34.8 L MCV 87.4 MCH 28.4 MCHC 32.5 RDW 16.1 H Plt Count 265 MPV 8.1 Absolute Neuts (auto) 4.7 Neutrophils % 65.9 Lymphocytes % 20.2 Monocytes % 8.0 Eosinophils % 4.9 H Basophils % 1.0 Nucleated RBC % 0 Sodium 142 Potassium 4.0 Chloride 106 Carbon Dioxide 28 Anion Gap 7 L BUN 12.2 Creatinine 0.8 Est GFR (CKD-EPI)AfAm 114.93 Est GFR (CKD-EPI)NonAf 99.16 Random Glucose 95 Calcium 8.3 L Phosphorus 3.0 Magnesium 2.5 H TSH 1.42 Active Medications Generic Name Dose Route Start Last Admin Trade Name Freq PRN Reason Stop Dose Admin Acetaminophen 650 mg 12/08/19 15:32 Tylenol - PO Q6H PRN PAIN LEVEL 1-5 Amlodipine Besylate 10 mg 12/09/19 10:00 12/12/19 10:41 Norvasc - PO 10 mg DAILY [facility] Administration Aspirin 81 mg 12/09/19 10:45 12/12/19 10:41 Ecotrin - PO 81 mg DAILY [facility] Administration Atorvastatin Calcium 20 mg 12/10/19 22:00 12/11/19 22:46 Lipitor - PO 20 mg HS [facility] Administration Carvedilol 12.5 mg 12/12/19 22:00 Coreg - PO BID [facility] Enoxaparin Sodium 40 mg 12/09/19 10:00 12/12/19 10:41 Lovenox - SQ 40 mg DAILY [facility] Administration Gabapentin 800 mg 12/08/19 22:00 12/12/19 15:37 Neurontin - PO 800 mg TID [facility] Administration Piperacillin Sod/Tazobactam 50 mls @ 100 mls/hr 12/09/19 18:00 12/12/19 10:41 Sod 3.375 gm/ Dextrose IVPB 100 mls/hr Q8H-IV [facility] Administration Protocol Sodium Chloride 1,000 mls @ 83 mls/hr 12/12/19 12:45 12/12/19 15:37 Normal Saline - IV 83 mls/hr ASDIR [facility] Administration Oxycodone HCl 5 mg 12/09/19 17:57 12/10/19 23:18 Roxicodone - PO 5 mg Q4H PRN Administration PAIN LEVEL 4 - 6 Oxycodone HCl 10 mg 12/09/19 17:59 12/12/19 04:11 Roxicodone - PO 10 mg Q6H PRN Administration PAIN LEVEL 7-10 ASSESSMENT/PLAN: 59M w/ pmh of CM, CHF, and chronic BLE wounds(> 2ys) referred to [facility] for BLE wounds by Dr Meyer for recommendation of IV abx. Chronic venous congestion with LLE cellulitis LLE CX(12/08/19): nonlactose ferment GNB, group D strep, MSSA, diphtheroid/corynebacterium pain regimen: gabapentin, acetaminophen, oxycodone Wound Care consulted/Dr. Yen - patient see's yen in clinic ID consult (Betsy): Prelim CS + for Group D Strep or Enterococcus, Presumptive MSSA, Diptheroid/Corynebacterium Vanc d/c today Continue IV Zoysn Day 4 Tachycardia Coreg started on correct dose today 12.5 BID TSH ordered - family hx of thyroid disease Continue to monitor vitals Chronic umbilical hernia --nonobstructing and asymptomatic pt has [facility] appt for Lap UHR on 12/12/19 Surg Consult(Sae): --no elective repair while getting abx for infection/ follow up outpatient BLE neuropathy cw gabapentin HTN cw norvasc CHF coreg, med rec done proper dose started today (12.5 BID) atorvastatin FEN sodium controlled diet lovenox Visit type - Emergency Visit Emergency Visit: Yes ED Registration Date: 12/08/19 Care time: The patient presented to the Emergency Department on the above date and was hospitalized for further evaluation of their emergent condition. - New Patient This patient is new to me today: Yes Date on this admission: 12/14/19 - Critical Care Critical Care patient: No - Discharge Referral Referred to [facility] Med P.C.: No ATTENDING PHYSICIAN STATEMENT I saw and evaluated the patient. I reviewed the resident's note and discussed the case with the resident. I agree with the resident's findings and plan as documented. SUBJECTIVE: OBJECTIVE: ASSESSMENT AND PLAN:
[2019-12-12] MEDS: COLLAGENASE CLOSTRIDIUM HIST. 30 GRAMS TUBE TP SCH ×2 (16:30→18:05)
--- NOTE | 2019-12-12 19:15 | PN ---
Teaching Attending Note Name of Resident: Lonnie Buitrago ATTENDING PHYSICIAN STATEMENT I saw and evaluated the patient. I reviewed the resident's note and discussed the case with the resident. I agree with the resident's findings and plan as documented. SUBJECTIVE: has no pain, feels palpitations and his heart racing. reports tahcycardia as out pt and that he was placed on coreg . has no SOB . has chronic back pain . No abd pain . reprots old umbilical hernia with purple skin changes for years. OBJECTIVE: NAD, awake, alert, cooeprative CV: RRR Lungs: CTAB ABd: obese, soft, NT, ND , reducible umbilical hernia, with skin changes and purple discoloration , and thick skin in center. NT hernia Ext " L evans ulcer with clean base. few ulcers on R evans and lateral aspect of lower leg with no discharge . slightly thick hyperpigmented skin surrounding all ulcers. nl warmth of the skin ASSESSMENT AND PLAN: 59 y/o man with h/o CHF, HTN, umbilical, HLP, peripheral neuropathy , tachycardia , hernia, and chronic wounds who presneted with infected wounds on legs 1- infected leg wounds 2- umbilical hernia . 3- HTN 4- Sinus tachycardia Plan: - Imaging reviewed. - cont zosyn - follow final wound cx with final ID and sens - Sinus tachycardia, is chronic. for which he is on coreg BId and here he is getting it once daily. will try gentle hydration x 24 hrs, and check TSH. NO suspicion of PE. EKG with no signs of R heart strain. No pain . looks a little anxious - cont norvasc - cont wound care - Hernia repair as out pt.
[2019-12-12] MEDS: ATORVASTATIN CA 20 MG TABLET (FP) PO SCH (21:58)
[2019-12-13] MEDS ORDERED: oxyCODONE HCL 5 MG TABLET PO ONE ×2 (02:39→22:32)
[2019-12-13] MEDS ORDERED: DEXTROSE 5%-WATER - 50 ML IVPB ONE ×3 (02:48→17:14)
[2019-12-13] MEDS ORDERED: PIPERACILLIN/TAZOBACTAM 3.375 GM VIAL IVPB ONE ×3 (02:48→17:14)
[2019-12-13] MEDS: PIPERACILLIN/TAZOB 3.375 GM 3.375 GM in DEXTROSE 5%-WATER - 50 ML IVPB SCH ×3 (03:02→18:06)
[2019-12-13] MEDS: SODIUM CHLORIDE 1,000 ML IV SCH ×2 (04:23→18:06)
[2019-12-13] MEDS: GABAPENTIN 400 MG CAPSULE PO SCH ×3 (06:20→22:19)
[2019-12-13 09:19] LABS: HEMATOCRIT 37.9 % (35.4-49); HEMOGLOBIN 11.9 GM/dL (11.7-16.9); MCH 27.5 pg (25.7-33.7); MCHC 31.5 g/dl (32.0-35.9); MEAN CELL VOLUME 87.3 fl (80-96); MEAN PLT VOLUME 7.9 fl (7.5-11.1); PLATELET COUNT 301 K/MM3 (134-434); RBC 4.34 M/mm3 (4.00-5.60); RDW 16.5 % (11.9-15.9); WHITE BLOOD COUNT 8.1 K/mm3 (4.0-10.0)
[2019-12-13] MEDS: ENOXAPARIN NA (PORCINE) 40 MG/0.4 ML DISP.SYRIN SQ SCH (09:32)
[2019-12-13] MEDS: CARVEDILOL 12.5 MG TABLET (FP) PO SCH ×2 (09:33→22:19)
[2019-12-13] MEDS: ASPIRIN COATED 81 MG TABLET.EC PO SCH (09:33)
[2019-12-13] MEDS: amLODIPine BESYLATE 10 MG TABLET (FP) PO SCH (09:33)
[2019-12-13] MEDS: COLLAGENASE CLOSTRIDIUM HIST. 30 GRAMS TUBE TP SCH (09:37)
[2019-12-13 09:55] LABS: BLOOD UREA NITROGEN 11.2 mg/dL (7-18); CALCIUM 8.7 mg/dL (8.5-10.1); CREATININE 0.9 mg/dL (0.55-1.3); MAGNESIUM 2.6 mg/dL (1.8-2.4); PHOSPHOROUS 2.9 mg/dL (2.5-4.9); POTASSIUM 3.7 mmol/L (3.5-5.1)
--- NOTE | 2019-12-13 12:20 | PN ---
Progress Note, Physician History of Present Illness: no complaints doing well - Current Medication List Current Medications: Active Medications Acetaminophen (Tylenol -) 650 mg PO Q6H PRN PRN Reason: PAIN LEVEL 1-5 Amlodipine Besylate (Norvasc -) 10 mg PO DAILY [facility] Last Admin: 12/13/19 09:33 Dose: 10 mg Documented by: Aspirin (Ecotrin -) 81 mg PO DAILY [facility] Last Admin: 12/13/19 09:33 Dose: 81 mg Documented by: Atorvastatin Calcium (Lipitor -) 20 mg PO HS [facility] Last Admin: 12/12/19 21:58 Dose: 20 mg Documented by: Carvedilol (Coreg -) 12.5 mg PO BID [facility] Last Admin: 12/13/19 09:33 Dose: 12.5 mg Documented by: Collagenase (Santyl -) 1 applic TP DAILY [facility]; Protocol Last Admin: 12/13/19 09:37 Dose: 1 applic Documented by: Enoxaparin Sodium (Lovenox -) 40 mg SQ DAILY [facility] Last Admin: 12/13/19 09:32 Dose: 40 mg Documented by: Gabapentin (Neurontin -) 800 mg PO TID [facility] Last Admin: 12/13/19 06:20 Dose: 800 mg Documented by: Piperacillin Sod/Tazobactam (Sod 3.375 gm/ Dextrose) 50 mls @ 100 mls/hr IVPB Q8H-IV [facility]; Protocol Last Admin: 12/13/19 09:32 Dose: 100 mls/hr Documented by: Sodium Chloride (Normal Saline -) 1,000 mls @ 83 mls/hr IV ASDIR [facility] Last Admin: 12/13/19 04:23 Dose: 83 mls/hr Documented by: - Objective Vital Signs: Vital Signs Temperature 98.3 F 12/13/19 08:55 Pulse Rate 121 H 12/13/19 08:55 Respiratory Rate 18 12/13/19 08:55 Blood Pressure 108/82 12/13/19 08:55 O2 Sat by Pulse Oximetry (%) 94 L 12/12/19 21:00 Constitutional: Yes: No Distress, Calm, Obese Cardiovascular: Yes: S1, S2 Respiratory: Yes: Regular, CTA Bilaterally Gastrointestinal: Yes: Normal Bowel Sounds, Soft Musculoskeletal: Yes: WNL Extremities: Yes: WNL Wound/Incision: Yes: Dressing Dry and Intact Neurological: Yes: Alert, Oriented Psychiatric: Yes: Alert, Oriented Labs: CBC, BMP 12/13/19 08:04 12/13/19 08:04 INR, PTT INR 1.06 (0.83-1.09) 12/08/19 13:10 Assessment/Plan Problem List - Problems (1) Wound of lower extremity Code(s): S81.809A - UNSPECIFIED OPEN WOUND, UNSPECIFIED LOWER LEG, INIT ENCNTR Qualifiers: Qualified Code(s): S81.802A - Unspecified open wound, left lower leg, initial encounter (2) Venous stasis ulcers of both lower extremities Code(s): I83.019 - VARICOSE VEINS OF RIGHT LOWER EXTREMITY W ULCER OF UNSP SITE; I83.029 - VARICOSE VEINS OF LEFT LOWER EXTREMITY W ULCER OF UNSP SITE; L97.919 - NON-PRS CHRONIC ULC UNSP PRT OF R LOW LEG W UNSP SEVERITY; L97.929 - NON-PRS CHRONIC ULC UNSP PRT OF L LOW LEG W UNSP SEVERITY (3) Infected stasis ulcer of left lower extremity Code(s): I83.229 - VARICOS VN OF L LOW EXTREM W ULC OF UNSP SITE AND INFLAM; L97.929 - NON-PRS CHRONIC ULC UNSP PRT OF L LOW LEG W UNSP SEVERITY (4) Cardiomyopathy Code(s): I42.9 - CARDIOMYOPATHY, UNSPECIFIED (5) HTN (hypertension) Code(s): I10 - ESSENTIAL (PRIMARY) HYPERTENSION (6) HLD (hyperlipidemia) Code(s): E78.5 - HYPERLIPIDEMIA, UNSPECIFIED Assessment/Plan Infected LLE chronic ulcer b/l LE ulcers Venous stasis HTN HLD CM Morbid obesity Onychomycosis continue abx wound cx rest as per the team await for identification of the organisms
--- NOTE | 2019-12-13 15:33 | EKG ---
Test Reason : Blood Pressure : / mmHG Vent. Rate : 125 BPM Atrial Rate : 125 BPM P-R Int : 048 ms QRS Dur : 086 ms QT Int : 324 ms P-R-T Axes : 000 -20 011 degrees QTc Int : 467 ms SINUS TACHYCARDIA WITH SHORT FL POSSIBLE ANTERIOR INFARCT (CITED ON OR BEFORE 08-DEC-2019) ABNORMAL ECG WHEN COMPARED WITH ECG OF 10-DEC-2019 11:53, NO SIGNIFICANT CHANGE WAS FOUND Confirmed by MD Rocky, Karthik ([id number]) on 12/13/2019 3:33:04 PM Referred By: Confirmed By:Karthik Hidalgo MD
--- NOTE | 2019-12-13 18:32 | PN ---
Teaching Attending Note Name of Resident: Lonnie Buitrago ATTENDING PHYSICIAN STATEMENT I saw and evaluated the patient. I reviewed the resident's note and discussed the case with the resident. I agree with the resident's findings and plan as documented. SUBJECTIVE: No fever or chills. concerned about his painmeds and all his other meds OBJECTIVE: NAD, awake, alert, cooeprative CV: RRR Lungs: CTAB Ext: L evans ulcer with clean base. patietn preffers R leg dressing not to be removed today ASSESSMENT AND PLAN: 59 y/o man with h/o CHF, HTN, umbilical, HLP, peripheral neuropathy , tachycardia , hernia, and chronic wounds who presneted with infected wounds on legs 1- infected leg wounds 2- umbilical hernia . 3- HTN 4- Sinus tachycardia Plan: - cont zosyn - apply non stick dressing on wounds - follow final wound cx with final ID and sens - Sinus tachycardia, is chronic. Repeat EKG with sinus rhythm and no signs of R heart strain. TSH Nl. I doubt PE. will check US doppler of legs though . - cont norvasc - cont wound care and santyl - Hernia repair as out pt. ASSESSMENT AND PLAN:
--- NOTE | 2019-12-13 19:28 | PN ---
Physical Exam: SUBJECTIVE: Patient seen and examined bedside. In no acute distress. No events overnight. Continues to be tachycardic OBJECTIVE: Vital Signs Vital Signs - 8 hr 12/13/19 14:29 Temperature 97.8 F Pulse Rate 124 H Respiratory 20 Rate Blood Pressure 166/77 GENERAL: Alert and oriented, very obese HEAD: Normal with no signs of trauma. LUNGS: Breath sounds equal, clear to auscultation bilaterally, no wheezes, no crackles, no accessory muscle use. HEART: Regular rate and rhythm, S1, S2 without murmur, rub or gallop. ABDOMEN: Soft, nontender, nondistended, no guarding, no rebound. Partially reducible umbilical hernia. EXTREMITIES: BLE evans ulcerations with serous drainage, no obvious purulent discharge, they are improving NEUROLOGICAL: Normal speech. Laboratory Results - last 24 hr 12/13/19 12/13/19 08:04 08:04 WBC 8.1 RBC 4.34 Hgb 11.9 Hct 37.9 MCV 87.3 MCH 27.5 MCHC 31.5 L RDW 16.5 H Plt Count 301 MPV 7.9 Sodium 141 Potassium 3.7 Chloride 106 Carbon Dioxide 27 Anion Gap 9 BUN 11.2 Creatinine 0.9 Est GFR (CKD-EPI)AfAm 109.50 Est GFR (CKD-EPI)NonAf 94.48 Random Glucose 98 Calcium 8.7 Phosphorus 2.9 Magnesium 2.6 H TSH 1.40 D Active Medications Generic Name Dose Route Start Last Admin Trade Name Freq PRN Reason Stop Dose Admin Acetaminophen 650 mg 12/08/19 15:32 Tylenol - PO Q6H PRN PAIN LEVEL 1-5 Amlodipine Besylate 10 mg 12/09/19 10:00 12/13/19 09:33 Norvasc - PO 10 mg DAILY [facility] Administration Aspirin 81 mg 12/09/19 10:45 12/13/19 09:33 Ecotrin - PO 81 mg DAILY [facility] Administration Atorvastatin Calcium 20 mg 12/10/19 22:00 12/12/19 21:58 Lipitor - PO 20 mg HS [facility] Administration Carvedilol 12.5 mg 12/12/19 22:00 12/13/19 09:33 Coreg - PO 12.5 mg BID [facility] Administration Collagenase 1 applic 12/12/19 16:30 12/13/19 09:37 Santyl - TP 1 applic DAILY [facility] Administration Protocol Enoxaparin Sodium 40 mg 12/09/19 10:00 12/13/19 09:32 Lovenox - SQ 40 mg DAILY [facility] Administration Gabapentin 800 mg 12/08/19 22:00 12/13/19 14:08 Neurontin - PO 800 mg TID [facility] Administration Piperacillin Sod/Tazobactam 50 mls @ 100 mls/hr 12/09/19 18:00 12/13/19 18:06 Sod 3.375 gm/ Dextrose IVPB 100 mls/hr Q8H-IV [facility] Administration Protocol Sodium Chloride 1,000 mls @ 83 mls/hr 12/12/19 12:45 12/13/19 18:06 Normal Saline - IV 83 mls/hr ASDIR [facility] Administration ASSESSMENT/PLAN: 59M w/ pmh of CM, CHF, and chronic BLE wounds(> 2ys) referred to [facility] for BLE wounds by Dr Meyer for recommendation of IV abx. Chronic venous congestion with LLE cellulitis LLE CX(12/08/19): nonlactose ferment GNB, group D strep, MSSA, diphtheroid/corynebacterium pain regimen: gabapentin, acetaminophen, oxycodone Wound Care consulted/Dr. Lopez - patient see's yovana in clinic ID consult (Betsy): Prelim CS + for Group D Strep or Enterococcus, Presumptive MSSA, Diptheroid/Corynebacterium Vanc d/c today Continue IV Zoysn Day 5 Surgery consulted and discussed with Dr. Lopez for wound care and recommended Santyl to wounds, cover with damp to dry 4x4s and kerlix Bilateral compression with souleymane wraps once cellulitis has receded (wrap from metacarpal heads to below knee) Tachycardia Coreg started on correct dose today 12.5 BID TSH ordered - family hx of thyroid disease EKG 12/12 showed sinus tachy US LE ordered 12/12 for possible DVT Chronic umbilical hernia --nonobstructing and asymptomatic pt has [facility] appt for Lap UHR on 12/12/19 Surg Consult(Sae): --no elective repair while getting abx for infection/ follow up outpatient BLE neuropathy cw gabapentin HTN cw norvasc CHF coreg, med rec done proper dose started today (12.5 BID) atorvastatin FEN sodium controlled diet lovenox Visit type - Emergency Visit Emergency Visit: Yes ED Registration Date: 12/08/19 Care time: The patient presented to the Emergency Department on the above date and was hospitalized for further evaluation of their emergent condition. - New Patient This patient is new to me today: No - Critical Care Critical Care patient: No - Discharge Referral Referred to [facility] Med P.C.: No ATTENDING PHYSICIAN STATEMENT I saw and evaluated the patient. I reviewed the resident's note and discussed the case with the resident. I agree with the resident's findings and plan as documented. SUBJECTIVE: OBJECTIVE: ASSESSMENT AND PLAN:
[2019-12-13] MEDS ORDERED: MAGNESIUM CL 64 MG TABLET.SA PO SCH (19:30)
[2019-12-13] MEDS: ATORVASTATIN CA 20 MG TABLET (FP) PO SCH (22:19)
[2019-12-13] MEDS: ACETAMINOPHEN 325 MG TABLET (FP) PO PRN (22:21)
[2019-12-14] MEDS ORDERED: PIPERACILLIN/TAZOBACTAM 3.375 GM VIAL IVPB ONE ×3 (02:13→17:54)
[2019-12-14] MEDS ORDERED: DEXTROSE 5%-WATER - 50 ML IVPB ONE ×3 (02:14→17:54)
[2019-12-14] MEDS: PIPERACILLIN/TAZOB 3.375 GM 3.375 GM in DEXTROSE 5%-WATER - 50 ML IVPB SCH ×3 (02:19→17:57)
[2019-12-14] MEDS: GABAPENTIN 400 MG CAPSULE PO SCH ×3 (06:42→21:21)
[2019-12-14] MEDS: ACETAMINOPHEN 325 MG TABLET (FP) PO PRN ×3 (06:44→21:21)
[2019-12-14] MEDS: CARVEDILOL 12.5 MG TABLET (FP) PO SCH ×2 (09:06→21:21)
[2019-12-14] MEDS: ASPIRIN COATED 81 MG TABLET.EC PO SCH (09:06)
[2019-12-14] MEDS: ENOXAPARIN NA (PORCINE) 40 MG/0.4 ML DISP.SYRIN SQ SCH (09:07)
[2019-12-14] MEDS: amLODIPine BESYLATE 10 MG TABLET (FP) PO SCH (09:07)
[2019-12-14] MEDS: COLLAGENASE CLOSTRIDIUM HIST. 30 GRAMS TUBE TP SCH (09:07)
[2019-12-14] MEDS ORDERED: INSULIN (NOVOLOG) ASPART 100 UNITS/ML 10ML VIAL ONE (11:07)
--- NOTE | 2019-12-14 11:32 | PN ---
Progress Note, Physician History of Present Illness: no complaints doing well - Current Medication List Current Medications: Active Medications Acetaminophen (Tylenol -) 650 mg PO Q6H PRN PRN Reason: PAIN LEVEL 1-5 Last Admin: 12/14/19 06:44 Dose: 650 mg Documented by: Amlodipine Besylate (Norvasc -) 10 mg PO DAILY [facility] Last Admin: 12/14/19 09:07 Dose: 10 mg Documented by: Aspirin (Ecotrin -) 81 mg PO DAILY [facility] Last Admin: 12/14/19 09:06 Dose: 81 mg Documented by: Atorvastatin Calcium (Lipitor -) 20 mg PO HS [facility] Last Admin: 12/13/19 22:19 Dose: 20 mg Documented by: Carvedilol (Coreg -) 12.5 mg PO BID [facility] Last Admin: 12/14/19 09:06 Dose: 12.5 mg Documented by: Collagenase (Santyl -) 1 applic TP DAILY [facility]; Protocol Last Admin: 12/14/19 09:07 Dose: 1 applic Documented by: Enoxaparin Sodium (Lovenox -) 40 mg SQ DAILY [facility] Last Admin: 12/14/19 09:07 Dose: 40 mg Documented by: Gabapentin (Neurontin -) 800 mg PO TID [facility] Last Admin: 12/14/19 06:42 Dose: 800 mg Documented by: Piperacillin Sod/Tazobactam (Sod 3.375 gm/ Dextrose) 50 mls @ 100 mls/hr IVPB Q8H-IV [facility]; Protocol Last Admin: 12/14/19 09:07 Dose: 100 mls/hr Documented by: Sodium Chloride (Normal Saline -) 1,000 mls @ 83 mls/hr IV ASDIR [facility] Last Admin: 12/13/19 18:06 Dose: 83 mls/hr Documented by: Magnesium Chloride (Slow-Mag -) 64 mg PO DAILY [facility] - Objective Vital Signs: Vital Signs Temperature 98.2 F 12/14/19 09:39 Pulse Rate 120 H 12/14/19 09:39 Respiratory Rate 18 12/14/19 09:39 Blood Pressure 152/82 12/14/19 09:39 O2 Sat by Pulse Oximetry (%) 96 12/13/19 21:00 Constitutional: Yes: Calm, Mild Distress Cardiovascular: Yes: S1, S2 Respiratory: Yes: Regular, CTA Bilaterally Gastrointestinal: Yes: Normal Bowel Sounds, Soft Musculoskeletal: Yes: WNL Extremities: Yes: Other Wound/Incision: Yes: Dressing Dry and Intact Neurological: Yes: Alert, Oriented Labs: CBC, BMP 12/13/19 08:04 12/13/19 08:04 INR, PTT INR 1.06 (0.83-1.09) 12/08/19 13:10 Assessment/Plan Problem List - Problems (1) Wound of lower extremity Code(s): S81.809A - UNSPECIFIED OPEN WOUND, UNSPECIFIED LOWER LEG, INIT ENCNTR Qualifiers: Qualified Code(s): S81.802A - Unspecified open wound, left lower leg, initial encounter (2) Venous stasis ulcers of both lower extremities Code(s): I83.019 - VARICOSE VEINS OF RIGHT LOWER EXTREMITY W ULCER OF UNSP SITE; I83.029 - VARICOSE VEINS OF LEFT LOWER EXTREMITY W ULCER OF UNSP SITE; L97.919 - NON-PRS CHRONIC ULC UNSP PRT OF R LOW LEG W UNSP SEVERITY; L97.929 - NON-PRS CHRONIC ULC UNSP PRT OF L LOW LEG W UNSP SEVERITY (3) Infected stasis ulcer of left lower extremity Code(s): I83.229 - VARICOS VN OF L LOW EXTREM W ULC OF UNSP SITE AND INFLAM; L97.929 - NON-PRS CHRONIC ULC UNSP PRT OF L LOW LEG W UNSP SEVERITY (4) Cardiomyopathy Code(s): I42.9 - CARDIOMYOPATHY, UNSPECIFIED (5) HTN (hypertension) Code(s): I10 - ESSENTIAL (PRIMARY) HYPERTENSION (6) HLD (hyperlipidemia) Code(s): E78.5 - HYPERLIPIDEMIA, UNSPECIFIED Assessment/Plan Infected LLE chronic ulcer b/l LE ulcers Venous stasis HTN HLD CM Morbid obesity Onychomycosis continue abx wound cx rest as per the team wound care physio
[2019-12-14] MEDS: oxyCODONE HCL 5 MG TABLET PO PRN ×2 (14:09→21:21)
--- NOTE | 2019-12-14 18:35 | PN ---
Teaching Attending Note Name of Resident: Cathy Olsen ATTENDING PHYSICIAN STATEMENT I saw and evaluated the patient. I reviewed the resident's note and discussed the case with the resident. I agree with the resident's findings and plan as documented. SUBJECTIVE: seen around 11 am no pain, no fever or chills. no SOB. OBJECTIVE: NAD, awake, alert, cooperative. CV: RRR Lungs: CTAB Ext: L evans ulcer with slough. Multiple ulcers on R leg with minimal discharge. ABd: sfot, NT, ND, obese. discolored umbilical hernia which is reducible and non tender. not changed in size ASSESSMENT AND PLAN: 59 y/o man with h/o CHF, HTN, umbilical, HLP, peripheral neuropathy , tachycardia , hernia, and chronic wounds who presneted with infected wounds on legs 1- infected leg wounds 2- umbilical hernia . 3- HTN 4- Sinus tachycardia Plan: - cont zosyn - wound dressing - will call micro to finalize Id and sens of wound cx - Sinus tachycardia, is chronic. low suspicion for PE . US neg for DVT in both legs . will ask Pulm eval if VQ scan is needed - cont norvasc - cont wound care and santyl - Hernia repair as out pt. - Lovenox fro PX
[2019-12-14] MEDS: ATORVASTATIN CA 20 MG TABLET (FP) PO SCH (21:21)
--- NOTE | 2019-12-14 21:47 | PN ---
Physical Exam: SUBJECTIVE: Patient seen and examined bedside in no acute distress. No events overnight. OBJECTIVE: Vital Signs Period Temp Pulse Resp BP Sys/[place] Pulse Ox Last 24 Hr 98.1 F-99.1 F 118-127 18-19 120-152/72-82 98 GENERAL: Alert and oriented, very obese HEAD: Normal with no signs of trauma. LUNGS: Breath sounds equal, clear to auscultation bilaterally, no wheezes, no crackles, no accessory muscle use. HEART: Tachycardic with regular rhythm, S1, S2 without murmur, rub or gallop. ABDOMEN: Soft, nontender, nondistended, no guarding, no rebound. Partially reducible umbilical hernia. EXTREMITIES: BLE evans ulcerations with serous drainage, no obvious purulent discharge, wounds looked better today. NEUROLOGICAL: Normal speech. Active Medications Generic Name Dose Route Start Last Admin Trade Name Freq PRN Reason Stop Dose Admin Acetaminophen 650 mg 12/08/19 15:32 12/14/19 06:44 Tylenol - PO 650 mg Q6H PRN Administration PAIN LEVEL 1-5 Acetaminophen 325 mg 12/14/19 14:03 12/14/19 21:21 Tylenol - PO 325 mg TID PRN Administration PAIN SCALE 7-10 Amlodipine Besylate 10 mg 12/09/19 10:00 12/14/19 09:07 Norvasc - PO 10 mg DAILY [facility] Administration Aspirin 81 mg 12/09/19 10:45 12/14/19 09:06 Ecotrin - PO 81 mg DAILY [facility] Administration Atorvastatin Calcium 20 mg 12/10/19 22:00 12/14/19 21:21 Lipitor - PO 20 mg HS [facility] Administration Carvedilol 12.5 mg 12/12/19 22:00 12/14/19 21:21 Coreg - PO 12.5 mg BID [facility] Administration Collagenase 1 applic 12/12/19 16:30 12/14/19 09:07 Santyl - TP 1 applic DAILY [facility] Administration Protocol Enoxaparin Sodium 40 mg 12/09/19 10:00 12/14/19 09:07 Lovenox - SQ 40 mg DAILY [facility] Administration Gabapentin 800 mg 12/08/19 22:00 12/14/19 21:21 Neurontin - PO 800 mg TID [facility] Administration Piperacillin Sod/Tazobactam 50 mls @ 100 mls/hr 12/09/19 18:00 12/14/19 17:57 Sod 3.375 gm/ Dextrose IVPB 100 mls/hr Q8H-IV [facility] Administration Protocol Sodium Chloride 1,000 mls @ 83 mls/hr 12/12/19 12:45 12/13/19 18:06 Normal Saline - IV 83 mls/hr ASDIR [facility] Administration Oxycodone HCl 5 mg 12/14/19 14:03 12/14/19 21:21 Roxicodone - PO 5 mg TID PRN Administration PAIN SCALE 7-10 ASSESSMENT/PLAN: 59M w/ pmh of CM, CHF, and chronic BLE wounds(> 2ys) referred to [facility] for BLE wounds by Dr Meyer for recommendation of IV abx. Chronic venous congestion with LLE cellulitis LLE CX(12/08/19): nonlactose ferment GNB, group D strep, MSSA, diphtheroid/corynebacterium pain regimen: gabapentin, acetaminophen, oxycodone Wound Care consulted/Dr. Yen - patient see's yen in clinic ID consult (Betsy): Prelim CS + for Group D Strep or Enterococcus, Presumptive MSSA, Diptheroid/Corynebacterium Vanc d/c today Continue IV Zoysn Day 6 Surgery consulted and discussed with Dr. Yen for wound care and recommended Santyl to wounds, cover with damp to dry 4x4s and kerlix Bilateral compression with souleymane wraps once cellulitis has receded (wrap from metacarpal heads to below knee) -continuing all wound care and treatments Tachycardia TSH ordered - normal EKG 12/12 showed sinus tachy US LE ordered 12/12 negative DVT Consulted pulm about possible V/Q scan to further r/o DVT Chronic umbilical hernia --nonobstructing and asymptomatic pt has [facility] appt for Lap UHR on 12/12/19 Surg Consult(Sae): --no elective repair while getting abx for infection/ follow up outpatient BLE neuropathy cw gabapentin HTN cw norvasc CHF coreg atorvastatin FEN sodium controlled diet lovenox Visit type - Emergency Visit Emergency Visit: Yes ED Registration Date: 12/08/19 Care time: The patient presented to the Emergency Department on the above date and was hospitalized for further evaluation of their emergent condition. - New Patient This patient is new to me today: No - Critical Care Critical Care patient: No - Discharge Referral Referred to [facility] Med P.C.: Yes ATTENDING PHYSICIAN STATEMENT I saw and evaluated the patient. I reviewed the resident's note and discussed the case with the resident. I agree with the resident's findings and plan as documented. SUBJECTIVE: OBJECTIVE: ASSESSMENT AND PLAN:
[2019-12-15] MEDS ORDERED: DEXTROSE 5%-WATER - 50 ML IVPB ONE ×3 (01:21→17:54)
[2019-12-15] MEDS ORDERED: PIPERACILLIN/TAZOBACTAM 3.375 GM VIAL IVPB ONE ×3 (01:21→17:54)
[2019-12-15] MEDS: PIPERACILLIN/TAZOB 3.375 GM 3.375 GM in DEXTROSE 5%-WATER - 50 ML IVPB SCH ×3 (01:26→17:56)
[2019-12-15] MEDS ORDERED: ACETAMINOPHEN 1000 MG/100 ML VIAL (NON FORMULARY) IVPB ONE (02:13)
[2019-12-15] MEDS: oxyCODONE HCL 5 MG TABLET PO PRN ×2 (05:10→21:35)
[2019-12-15] MEDS: ACETAMINOPHEN 325 MG TABLET (FP) PO PRN ×2 (05:11→21:36)
[2019-12-15] MEDS: GABAPENTIN 400 MG CAPSULE PO SCH ×3 (05:12→21:35)
[2019-12-15] MEDS: amLODIPine BESYLATE 10 MG TABLET (FP) PO SCH (09:28)
[2019-12-15] MEDS: ENOXAPARIN NA (PORCINE) 40 MG/0.4 ML DISP.SYRIN SQ SCH (09:28)
[2019-12-15] MEDS: ASPIRIN COATED 81 MG TABLET.EC PO SCH (09:29)
[2019-12-15] MEDS: COLLAGENASE CLOSTRIDIUM HIST. 30 GRAMS TUBE TP SCH (09:29)
[2019-12-15] MEDS: IBUPROFEN 400 MG TABLET (FP) PO SCH ×2 (09:29→21:37)
[2019-12-15] MEDS: CARVEDILOL 12.5 MG TABLET (FP) PO SCH ×2 (09:29→21:36)
--- NOTE | 2019-12-15 10:52 | PN ---
Progress Note, Physician History of Present Illness: stable no new issues wound cx awaited spoke with lab - Current Medication List Current Medications: Active Medications Acetaminophen (Tylenol -) 650 mg PO Q6H PRN PRN Reason: PAIN LEVEL 1-5 Last Admin: 12/14/19 06:44 Dose: 650 mg Documented by: Acetaminophen (Tylenol -) 325 mg PO TID PRN PRN Reason: PAIN SCALE 7-10 Last Admin: 12/15/19 05:11 Dose: 325 mg Documented by: Amlodipine Besylate (Norvasc -) 10 mg PO DAILY [facility] Last Admin: 12/15/19 09:28 Dose: 10 mg Documented by: Aspirin (Ecotrin -) 81 mg PO DAILY [facility] Last Admin: 12/15/19 09:29 Dose: 81 mg Documented by: Atorvastatin Calcium (Lipitor -) 20 mg PO HS [facility] Last Admin: 12/14/19 21:21 Dose: 20 mg Documented by: Carvedilol (Coreg -) 12.5 mg PO BID [facility] Last Admin: 12/15/19 09:29 Dose: 12.5 mg Documented by: Collagenase (Santyl -) 1 applic TP DAILY [facility]; Protocol Last Admin: 12/15/19 09:29 Dose: 1 applic Documented by: Enoxaparin Sodium (Lovenox -) 40 mg SQ DAILY [facility] Last Admin: 12/15/19 09:28 Dose: 40 mg Documented by: Gabapentin (Neurontin -) 800 mg PO TID [facility] Last Admin: 12/15/19 05:12 Dose: 800 mg Documented by: Piperacillin Sod/Tazobactam (Sod 3.375 gm/ Dextrose) 50 mls @ 100 mls/hr IVPB Q8H-IV [facility]; Protocol Last Admin: 12/15/19 09:28 Dose: 100 mls/hr Documented by: Sodium Chloride (Normal Saline -) 1,000 mls @ 83 mls/hr IV ASDIR [facility] Last Admin: 12/13/19 18:06 Dose: 83 mls/hr Documented by: Ibuprofen (Motrin -) 800 mg PO BID [facility] Last Admin: 12/15/19 09:29 Dose: Not Given Documented by: Oxycodone HCl (Roxicodone -) 5 mg PO TID PRN PRN Reason: PAIN SCALE 7-10 Last Admin: 12/15/19 05:10 Dose: 5 mg Documented by: - Objective Vital Signs: Vital Signs Temperature 98.1 F 12/15/19 08:31 Pulse Rate 126 H 12/15/19 08:31 Respiratory Rate 18 12/15/19 08:31 Blood Pressure 151/103 H 12/15/19 08:31 O2 Sat by Pulse Oximetry (%) 98 12/14/19 21:00 Constitutional: Yes: No Distress, Calm Cardiovascular: Yes: S1, S2 Respiratory: Yes: Regular, CTA Bilaterally Gastrointestinal: Yes: Normal Bowel Sounds, Soft Musculoskeletal: Yes: WNL Extremities: Yes: Other Wound/Incision: Yes: Dressing Dry and Intact Neurological: Yes: Alert, Oriented Psychiatric: Yes: Alert, Oriented Labs: CBC, BMP 12/13/19 08:04 12/13/19 08:04 INR, PTT INR 1.06 (0.83-1.09) 12/08/19 13:10 Assessment/Plan Problem List - Problems (1) Wound of lower extremity Code(s): S81.809A - UNSPECIFIED OPEN WOUND, UNSPECIFIED LOWER LEG, INIT ENCNTR Qualifiers: Qualified Code(s): S81.802A - Unspecified open wound, left lower leg, initial encounter (2) Venous stasis ulcers of both lower extremities Code(s): I83.019 - VARICOSE VEINS OF RIGHT LOWER EXTREMITY W ULCER OF UNSP SITE; I83.029 - VARICOSE VEINS OF LEFT LOWER EXTREMITY W ULCER OF UNSP SITE; L97.919 - NON-PRS CHRONIC ULC UNSP PRT OF R LOW LEG W UNSP SEVERITY; L97.929 - NON-PRS CHRONIC ULC UNSP PRT OF L LOW LEG W UNSP SEVERITY (3) Infected stasis ulcer of left lower extremity Code(s): I83.229 - VARICOS VN OF L LOW EXTREM W ULC OF UNSP SITE AND INFLAM; L97.929 - NON-PRS CHRONIC ULC UNSP PRT OF L LOW LEG W UNSP SEVERITY (4) Cardiomyopathy Code(s): I42.9 - CARDIOMYOPATHY, UNSPECIFIED (5) HTN (hypertension) Code(s): I10 - ESSENTIAL (PRIMARY) HYPERTENSION (6) HLD (hyperlipidemia) Code(s): E78.5 - HYPERLIPIDEMIA, UNSPECIFIED Assessment/Plan Infected LLE chronic ulcer b/l LE ulcers Venous stasis HTN HLD CM Morbid obesity Onychomycosis continue abx wound cx rest as per the team wound care physio spoke wiht lab sensitivities and identification awaited
[2019-12-15 10:59] LABS: HEMATOCRIT 37.4 % (35.4-49); HEMOGLOBIN 12.2 GM/dL (11.7-16.9); MCH 28.4 pg (25.7-33.7); MCHC 32.5 g/dl (32.0-35.9); MEAN CELL VOLUME 87.3 fl (80-96); MEAN PLT VOLUME 7.5 fl (7.5-11.1); PLATELET COUNT 280 K/MM3 (134-434); RBC 4.28 M/mm3 (4.00-5.60); RDW 16.3 % (11.9-15.9); WHITE BLOOD COUNT 8.2 K/mm3 (4.0-10.0)
[2019-12-15 11:32] LABS: BLOOD UREA NITROGEN 12.5 mg/dL (7-18); CALCIUM 8.3 mg/dL (8.5-10.1); CREATININE 0.9 mg/dL (0.55-1.3); MAGNESIUM 2.3 mg/dL (1.8-2.4); PHOSPHOROUS 2.9 mg/dL (2.5-4.9); POTASSIUM 3.8 mmol/L (3.5-5.1)
--- NOTE | 2019-12-15 13:23 | PN ---
Progress Note (short form) - Note Progress Note: PULMONARY CONSULTATION DICTATED 12/15/19 Patient Name: ROX LITTLE Date of : 1960 Patient Status: Inpatient Attending Provider: Arslan Barlow Date: 12/15/19 13:15 Initialization Date: 12/15/19 13:15 Progress Note (short form) - Note Progress Note: PULMONARY CONSULTATION DICTATED 12/15/19 IMP TACHYCARDIA INFECTED LLE ULCERS LE ULCERS PVD CARDIOMYOPATHY CHF MORBID OBESITY HTN HLD PLAN O2 NEEDED ABX PER ID WOUND CARE D-DIMER IF ELEVATED WOULD START AC ECHO Problem List - Problems (1) Tachycardia Code(s): R00.0 - TACHYCARDIA, UNSPECIFIED (2) Cardiomyopathy Code(s): I42.9 - CARDIOMYOPATHY, UNSPECIFIED (3) HLD (hyperlipidemia) Code(s): E78.5 - HYPERLIPIDEMIA, UNSPECIFIED (4) HTN (hypertension) Code(s): I10 - ESSENTIAL (PRIMARY) HYPERTENSION (5) Infected stasis ulcer of left lower extremity Code(s): I83.229 - VARICOS VN OF L LOW EXTREM W ULC OF UNSP SITE AND INFLAM; L97.929 - NON-PRS CHRONIC ULC UNSP PRT OF L LOW LEG W UNSP SEVERITY (6) Wound of lower extremity Code(s): S81.809A - UNSPECIFIED OPEN WOUND, UNSPECIFIED LOWER LEG, INIT ENCNTR Qualifiers: Encounter type: initial encounter Laterality: left Qualified Code(s): S81.802A - Unspecified open wound, left lower leg, initial encounter (7) Venous stasis ulcers of both lower extremities Code(s): I83.019 - VARICOSE VEINS OF RIGHT LOWER EXTREMITY W ULCER OF UNSP SITE; I83.029 - VARICOSE VEINS OF LEFT LOWER EXTREMITY W ULCER OF UNSP SITE; L97.919 - NON-PRS CHRONIC ULC UNSP PRT OF R LOW LEG W UNSP SEVERITY; L97.929 - NON-PRS CHRONIC ULC UNSP PRT OF L LOW LEG W UNSP SEVERITY Problem List - Problems (1) Tachycardia Code(s): R00.0 - TACHYCARDIA, UNSPECIFIED (2) Cardiomyopathy Code(s): I42.9 - CARDIOMYOPATHY, UNSPECIFIED (3) HLD (hyperlipidemia) Code(s): E78.5 - HYPERLIPIDEMIA, UNSPECIFIED (4) HTN (hypertension) Code(s): I10 - ESSENTIAL (PRIMARY) HYPERTENSION (5) Infected stasis ulcer of left lower extremity Code(s): I83.229 - VARICOS VN OF L LOW EXTREM W ULC OF UNSP SITE AND INFLAM; L97.929 - NON-PRS CHRONIC ULC UNSP PRT OF L LOW LEG W UNSP SEVERITY (6) Wound of lower extremity Code(s): S81.809A - UNSPECIFIED OPEN WOUND, UNSPECIFIED LOWER LEG, INIT ENCNTR Qualifiers: Encounter type: initial encounter Laterality: left Qualified Code(s): S81.802A - Unspecified open wound, left lower leg, initial encounter (7) Venous stasis ulcers of both lower extremities Code(s): I83.019 - VARICOSE VEINS OF RIGHT LOWER EXTREMITY W ULCER OF UNSP SITE; I83.029 - VARICOSE VEINS OF LEFT LOWER EXTREMITY W ULCER OF UNSP SITE; L97.919 - NON-PRS CHRONIC ULC UNSP PRT OF R LOW LEG W UNSP SEVERITY; L97.929 - NON-PRS CHRONIC ULC UNSP PRT OF L LOW LEG W UNSP SEVERITY
[2019-12-15 14:12] VITALS: BMI 62.6
[2019-12-15] MEDS: SODIUM CHLORIDE 1,000 ML IV SCH (14:12)
--- NOTE | 2019-12-15 17:09 | CONS ---
DATE OF CONSULTATION: 12/15/2019 REFERRING PHYSICIAN: Arslan Barlow MD HISTORY: The patient is a 59-year-old white male with past medical history of cardiomyopathy; congestive heart failure; hypertension; hyperlipidemia; morbid obesity, BMI of 62; bilateral chronic venous stasis, lower extremities, admitted to [facility] on December 07 secondary to increasing malodorous discharge from a nonhealing left lower extremity wound for the past 3 weeks. Patient was seen on admission by Infectious Disease and placed on broad-spectrum antibiotics. Hospitalization significant for he was noted to have episodes to be tachycardic and complained of some mild shortness of breath. Patient underwent a duplex, lower extremities, which revealed no evidence of DVT. Patient denies any history of DVT or PE in the past. He is a nonsmoker. There is no history of occupational exposure to chemicals or fumes. Patient is essentially sedentary. He denies any history of recent travel. PAST MEDICAL HISTORY: Again includes cardiomyopathy, congestive heart failure, peripheral vascular disease, morbid obesity, hyperlipidemia, bilateral lower extremity ulcers. CURRENT MEDICATIONS: Include Tylenol, Zosyn, Lovenox, Neurontin, Coreg, Norvasc, normal saline, Lipitor, Ecotrin, Roxicodone, Santyl. PHYSICAL EXAMINATION: General: The patient is a morbidly obese male, awake, alert, appears no acute respiratory distress. Vital Signs: He is currently afebrile. Heart rate is 124, blood pressure 141/89, and respiratory rate is 20. O2 saturation is 96% on room air. HEENT: Exam is normocephalic, atraumatic. Neck: Supple. Heart: Tachycardic, S1, S2. Chest: Diminished breath sounds bilaterally. Abdomen: Morbidly obese. Extremities: Bilateral lower extremity ulcers which are partially wrapped. LABORATORY: WBC is 8.2, hemoglobin 12.2, hematocrit 37.4, with a platelet count of 280,000. INR is 1.06. Chemistries: BUN 12, creatinine 0.9. Duplex lower extremities: No evidence of DVT or PE. Chest x-ray: No evidence of acute pathology. IMPRESSION: 1. Tachycardia, etiology to be determined. Cannot rule out pulmonary embolism. Patient has increased risk secondary to morbid obesity, sedentary lifestyle. 2. Morbid obesity. 3. Lower extremity ulcers. 4. Infected left lower extremity ulcer. 5. History of cardiomyopathy. 6. Congestive heart failure. 7. Hypertension. 8. Hyperlipidemia. PLAN: Antibiotics as per Infectious Disease, supplemental O2 as needed. Check D-dimer. If D-dimer elevated, would recommend start anticoagulation since patient unable to undergo a CTA of the chest and/or VQ scan secondary to morbid obesity and weight limit of the machine. Echocardiogram. BRENDAN SPRING M.D. [id number] [facility] CENTERJareth
--- NOTE | 2019-12-15 18:48 | PN ---
Teaching Attending Note Name of Resident: Cathy Olsen ATTENDING PHYSICIAN STATEMENT I saw and evaluated the patient. I reviewed the resident's note and discussed the case with the resident. I agree with the resident's findings and plan as documented. SUBJECTIVE: no fever or chills. pains and aches. OBJECTIVE: NAD, awake, alert, cooperative. CV: RRR Lungs: CTAB Ext: wounds were unwrapped today ABd: soft, NT, ND, obese. discolored umbilical hernia which is reducible and non tender. not changed in size ASSESSMENT AND PLAN: 59 y/o man with h/o CHF, HTN, umbilical, HLP, peripheral neuropathy , tachycardia , hernia, and chronic wounds who presneted with infected wounds on legs 1- Infected leg wounds 2- Umbilical hernia . 3- HTN 4- Sinus tachycardia, can't r/o PE Plan: - cont zosyn. - case was d/w dr. Márquez. patient does not fit in VQ machine and empiric AC is recommended due to sedentary life style. - start eliquis - Dc IVF - wound dressing - follow final Id and sens of wound cx - cont norvasc. - resume HCTZ/triamterine - cont wound care and santyl. - Hernia repair as out pt.
--- NOTE | 2019-12-15 21:09 | PN ---
Physical Exam: SUBJECTIVE: Patient seen and examined bedside in no acute distress. No events overnight. OBJECTIVE: Vital Signs Period Temp Pulse Resp BP Sys/Ventura Pulse Ox Last 24 Hr 97.8 F-99 F 112-126 18-20 128-151/87-103 96 GENERAL: Alert and oriented, very obese HEAD: Normal with no signs of trauma. LUNGS: Breath sounds equal, clear to auscultation bilaterally, no wheezes, no crackles, no accessory muscle use. HEART: Tachycardic with regular rhythm, S1, S2 without murmur, rub or gallop. ABDOMEN: Soft, nontender, nondistended, no guarding, no rebound. Partially reducible umbilical hernia. EXTREMITIES: BLE evans ulcerations with serous drainage, no obvious purulent discharge, wounds looked better today. NEUROLOGICAL: Normal speech. Laboratory Results - last 24 hr 12/15/19 12/15/19 12/15/19 10:48 10:48 13:20 WBC 8.2 RBC 4.28 Hgb 12.2 Hct 37.4 MCV 87.3 MCH 28.4 MCHC 32.5 RDW 16.3 H Plt Count 280 MPV 7.5 D-Dimer 1251 H Sodium 141 Potassium 3.8 Chloride 109 H Carbon Dioxide 24 Anion Gap 7 L BUN 12.5 Creatinine 0.9 Est GFR (CKD-EPI)AfAm 109.50 Est GFR (CKD-EPI)NonAf 94.48 Random Glucose 111 H Calcium 8.3 L Phosphorus 2.9 Magnesium 2.3 Active Medications Generic Name Dose Route Start Last Admin Trade Name Freq PRN Reason Stop Dose Admin Acetaminophen 650 mg 12/08/19 15:32 12/14/19 06:44 Tylenol - PO 650 mg Q6H PRN Administration PAIN LEVEL 1-5 Acetaminophen 325 mg 12/14/19 14:03 12/15/19 05:11 Tylenol - PO 325 mg TID PRN Administration PAIN SCALE 7-10 Amlodipine Besylate 10 mg 12/09/19 10:00 12/15/19 09:28 Norvasc - PO 10 mg DAILY [facility] Administration Apixaban 10 mg 12/15/19 22:00 Eliquis - PO 12/22/19 21:59 BID [facility] Aspirin 81 mg 12/09/19 10:45 12/15/19 09:29 Ecotrin - PO 81 mg DAILY [facility] Administration Atorvastatin Calcium 20 mg 12/10/19 22:00 12/14/19 21:21 Lipitor - PO 20 mg HS [facility] Administration Carvedilol 12.5 mg 12/12/19 22:00 12/15/19 09:29 Coreg - PO 12.5 mg BID [facility] Administration Collagenase 1 applic 12/12/19 16:30 12/15/19 09:29 Santyl - TP 1 applic DAILY [facility] Administration Protocol Gabapentin 800 mg 12/08/19 22:00 12/15/19 14:12 Neurontin - PO 800 mg TID [facility] Administration Piperacillin Sod/Tazobactam 50 mls @ 100 mls/hr 12/09/19 18:00 12/15/19 17:56 Sod 3.375 gm/ Dextrose IVPB 100 mls/hr Q8H-IV [facility] Administration Protocol Ibuprofen 800 mg 12/15/19 10:00 12/15/19 09:29 Motrin - PO Not Given BID [facility] Oxycodone HCl 5 mg 12/14/19 14:03 12/15/19 05:10 Roxicodone - PO 5 mg TID PRN Administration PAIN SCALE 7-10 Triamterene/HCTZ 1 cap 12/16/19 10:00 Dyazide 25/37.5mg PO DAILY [facility] ASSESSMENT/PLAN: 59M w/ pmh of CM, CHF, and chronic BLE wounds(> 2ys) referred to [facility] for BLE wounds by Dr Meyer for recommendation of IV abx. Chronic venous congestion with LLE cellulitis LLE CX(12/08/19): nonlactose ferment GNB, group D strep, MSSA, diphtheroid/corynebacterium pain regimen: gabapentin, acetaminophen, oxycodone Wound Care consulted/Dr. Lopez - patient see's yovana in clinic ID consult (Betsy): Prelim CS + for Group D Strep or Enterococcus, Presumptive MSSA, D iptheroid/Corynebacterium Vanc d/c today Continue IV Zoysn Day 7 Surgery consulted and discussed with Dr. Lopez for wound care and recommended Santyl to wounds, cover with damp to dry 4x4s and kerlix Bilateral compression with souleymane wraps once cellulitis has receded (wrap from metacarpal heads to below knee) -continuing all wound care and treatments - Patient to continue IV antibiotics and wound care will reassess Tachycardia TSH ordered - normal EKG 12/12 showed sinus tachy US LE ordered 12/12 negative DVT Consulted pulm about possible V/Q scan - patient unable to fit in machine Start therapeutic eliquis for PE - 10mg BID continue to monitor Chronic umbilical hernia --nonobstructing and asymptomatic pt has [facility] appt for Lap UHR on 12/12/19 Surg Consult(Sae): --no elective repair while getting abx for infection/ follow up outpatient BLE neuropathy cw gabapentin HTN cw norvasc patient Hctz confirmed and added today CHF coreg atorvastatin FEN sodium controlled diet lovenox Visit type - Emergency Visit Emergency Visit: Yes ED Registration Date: 12/08/19 Care time: The patient presented to the Emergency Department on the above date and was hospitalized for further evaluation of their emergent condition. - New Patient This patient is new to me today: No - Critical Care Critical Care patient: No - Discharge Referral Referred to [facility] No ATTENDING PHYSICIAN STATEMENT I saw and evaluated the patient. I reviewed the resident's note and discussed the case with the resident. I agree with the resident's findings and plan as documented. SUBJECTIVE: OBJECTIVE: ASSESSMENT AND PLAN:
[2019-12-15] MEDS: ATORVASTATIN CA 20 MG TABLET (FP) PO SCH (21:35)
[2019-12-15] MEDS: APIXABAN 5 MG TABLET PO SCH (21:36)
[2019-12-16] MEDS ORDERED: PIPERACILLIN/TAZOBACTAM 3.375 GM VIAL IVPB ONE ×3 (02:02→16:38)
[2019-12-16] MEDS ORDERED: DEXTROSE 5%-WATER - 50 ML IVPB ONE ×3 (02:02→16:38)
[2019-12-16] MEDS: PIPERACILLIN/TAZOB 3.375 GM 3.375 GM in DEXTROSE 5%-WATER - 50 ML IVPB SCH ×3 (02:30→17:38)
[2019-12-16] MEDS: oxyCODONE HCL 5 MG TABLET PO PRN ×2 (05:00→20:36)
[2019-12-16] MEDS: GABAPENTIN 400 MG CAPSULE PO SCH ×3 (05:00→22:04)
[2019-12-16] MEDS: ACETAMINOPHEN 325 MG TABLET (FP) PO PRN ×2 (05:01→20:35)
--- NOTE | 2019-12-16 07:12 | PN ---
Progress Note, Physician - Current Medication List Current Medications: Active Medications Acetaminophen (Tylenol -) 650 mg PO Q6H PRN PRN Reason: PAIN LEVEL 1-5 Last Admin: 12/14/19 06:44 Dose: 650 mg Documented by: Acetaminophen (Tylenol -) 325 mg PO TID PRN PRN Reason: PAIN SCALE 7-10 Last Admin: 12/16/19 05:01 Dose: 325 mg Documented by: Amlodipine Besylate (Norvasc -) 10 mg PO DAILY [facility] Last Admin: 12/15/19 09:28 Dose: 10 mg Documented by: Apixaban (Eliquis -) 10 mg PO BID [facility] Stop: 12/22/19 21:59 Last Admin: 12/15/19 21:36 Dose: 10 mg Documented by: Aspirin (Ecotrin -) 81 mg PO DAILY [facility] Last Admin: 12/15/19 09:29 Dose: 81 mg Documented by: Atorvastatin Calcium (Lipitor -) 20 mg PO HS [facility] Last Admin: 12/15/19 21:35 Dose: 20 mg Documented by: Carvedilol (Coreg -) 12.5 mg PO BID [facility] Last Admin: 12/15/19 21:36 Dose: 12.5 mg Documented by: Collagenase (Santyl -) 1 applic TP DAILY [facility]; Protocol Last Admin: 12/15/19 09:29 Dose: 1 applic Documented by: Gabapentin (Neurontin -) 800 mg PO TID [facility] Last Admin: 12/16/19 05:00 Dose: 800 mg Documented by: Piperacillin Sod/Tazobactam (Sod 3.375 gm/ Dextrose) 50 mls @ 100 mls/hr IVPB Q8H-IV [facility]; Protocol Last Admin: 12/16/19 02:30 Dose: 100 mls/hr Documented by: Ibuprofen (Motrin -) 800 mg PO BID [facility] Last Admin: 12/15/19 21:37 Dose: Not Given Documented by: Oxycodone HCl (Roxicodone -) 5 mg PO TID PRN PRN Reason: PAIN SCALE 7-10 Last Admin: 12/16/19 05:00 Dose: 5 mg Documented by: Triamterene/HCTZ (Dyazide 25/37.5mg) 1 cap PO DAILY [facility] - Objective Vital Signs: Vital Signs Temperature 97.8 F 12/16/19 05:00 Pulse Rate 120 H 12/16/19 05:00 Respiratory Rate 20 12/16/19 05:00 Blood Pressure 148/95 12/16/19 05:00 O2 Sat by Pulse Oximetry (%) 96 12/15/19 21:00 Labs: CBC, BMP 12/15/19 10:48 12/15/19 10:48 INR, PTT INR 1.06 (0.83-1.09) 12/08/19 13:10 Problem List - Problems (1) Tachycardia Code(s): R00.0 - TACHYCARDIA, UNSPECIFIED (2) Cardiomyopathy Code(s): I42.9 - CARDIOMYOPATHY, UNSPECIFIED (3) HLD (hyperlipidemia) Code(s): E78.5 - HYPERLIPIDEMIA, UNSPECIFIED (4) HTN (hypertension) Code(s): I10 - ESSENTIAL (PRIMARY) HYPERTENSION (5) Infected stasis ulcer of left lower extremity Code(s): I83.229 - VARICOS VN OF L LOW EXTREM W ULC OF UNSP SITE AND INFLAM; L97.929 - NON-PRS CHRONIC ULC UNSP PRT OF L LOW LEG W UNSP SEVERITY (6) Wound of lower extremity Code(s): S81.809A - UNSPECIFIED OPEN WOUND, UNSPECIFIED LOWER LEG, INIT ENCNTR Qualifiers: Encounter type: initial encounter Laterality: left Qualified Code(s): S81.802A - Unspecified open wound, left lower leg, initial encounter (7) Venous stasis ulcers of both lower extremities Code(s): I83.019 - VARICOSE VEINS OF RIGHT LOWER EXTREMITY W ULCER OF UNSP SITE; I83.029 - VARICOSE VEINS OF LEFT LOWER EXTREMITY W ULCER OF UNSP SITE; L97.919 - NON-PRS CHRONIC ULC UNSP PRT OF R LOW LEG W UNSP SEVERITY; L97.929 - NON-PRS CHR ONIC ULC UNSP PRT OF L LOW LEG W UNSP SEVERITY Assessment/Plan Problem List - Problems (1) DVT (deep venous thrombosis) Code(s): I82.409 - ACUTE EMBOLISM AND THOMBOS UNSP DEEP VN UNSP LOWER EXTREMITY (2) Anemia Code(s): D64.9 - ANEMIA, UNSPECIFIED (3) Asthma Code(s): J45.909 - UNSPECIFIED ASTHMA, UNCOMPLICATED (4) Atypical chest pain Code(s): R07.89 - OTHER CHEST PAIN (5) Chronic pain Code(s): G89.29 - OTHER CHRONIC PAIN (6) Dvt femoral (deep venous thrombosis) Code(s): I82.419 - ACUTE EMBOLISM AND THROMBOSIS OF UNSPECIFIED FEMORAL VEIN (7) Factor V Leiden Code(s): D68.51 - ACTIVATED PROTEIN C RESISTANCE (8) Hypercoagulable state Code(s): D68.59 - OTHER PRIMARY THROMBOPHILIA (9) Hypertension Code(s): I10 - ESSENTIAL (PRIMARY) HYPERTENSION (10) Pulmonary embolism Code(s): I26.99 - OTHER PULMONARY EMBOLISM WITHOUT ACUTE COR PULMONALE (11) Shortness of breath Code(s): R06.02 - SHORTNESS OF BREATH (12) Vein stenosis Code(s): I87.1 - COMPRESSION OF VEIN Assessment/Plan Patient with history of non-compliance. Advised about possibility of due to AC non-compliance. Continue AC. Social service for medication assistance. Supplemental O2 as needed At this time he is not hypoxic and HR is normal and appears clinically stable. Do not suspect hemodynamically significant PE or SVC obstruction. No clear indication for V/Q scanning or additional testing at this time. Patient reports that he had a recent ECHO at [facility] that revealed elevated right heart pressures. No smoking was discussed. Will follow if remains admitted. There is no Pulmonary contraindication for DC planning. Thank you. Dr Marquis Problem List - Problems (1) Tachycardia Code(s): R00.0 - TACHYCARDIA, UNSPECIFIED (2) Cardiomyopathy Code(s): I42.9 - CARDIOMYOPATHY, UNSPECIFIED (3) HLD (hyperlipidemia) Code(s): E78.5 - HYPERLIPIDEMIA, UNSPECIFIED (4) HTN (hypertension) Code(s): I10 - ESSENTIAL (PRIMARY) HYPERTENSION (5) Infected stasis ulcer of left lower extremity Code(s): I83.229 - VARICOS VN OF L LOW EXTREM W ULC OF UNSP SITE AND INFLAM; L97.929 - NON-PRS CHRONIC ULC UNSP PRT OF L LOW LEG W UNSP SEVERITY (6) Wound of lower extremity Code(s): S81.809A - UNSPECIFIED OPEN WOUND, UNSPECIFIED LOWER LEG, INIT ENCNTR Qualifiers: Encounter type: initial encounter Laterality: left Qualified Code(s): S81.802A - Unspecified open wound, left lower leg, initial encounter (7) Venous stasis ulcers of both lower extremities Code(s): I83.019 - VARICOSE VEINS OF RIGHT LOWER EXTREMITY W ULCER OF UNSP SITE; I83.029 - VARICOSE VEINS OF LEFT LOWER EXTREMITY W ULCER OF UNSP SITE; L97.919 - NON-PRS CHRONIC ULC UNSP PRT OF R LOW LEG W UNSP SEVERITY; L97.929 - NON-PRS CHRONIC ULC UNSP PRT OF L LOW LEG W UNSP SEVERITY
[2019-12-16 08:48] LABS: HEMATOCRIT 37.1 % (35.4-49); HEMOGLOBIN 12.2 GM/dL (11.7-16.9); MCH 28.5 pg (25.7-33.7); MCHC 32.9 g/dl (32.0-35.9); MEAN CELL VOLUME 86.7 fl (80-96); MEAN PLT VOLUME 8.2 fl (7.5-11.1); PLATELET COUNT 303 K/MM3 (134-434); RBC 4.28 M/mm3 (4.00-5.60); RDW 16.8 % (11.9-15.9); WHITE BLOOD COUNT 8.4 K/mm3 (4.0-10.0)
--- NOTE | 2019-12-16 08:49 | PN ---
Physical Exam: SUBJECTIVE: Patient seen and examined today. In no acute distress. No events overnight. OBJECTIVE: Vital Signs Period Temp Pulse Resp BP Sys/V[place]ura Pulse Ox Last 24 Hr 97.8 F-98.1 F 120-124 20-20 141-159/86-95 96-96 GENERAL: Alert and oriented, very obese HEAD: Normal with no signs of trauma. LUNGS: Breath sounds equal, clear to auscultation bilaterally, no wheezes, no crackles, no accessory muscle use. HEART: Tachycardic with regular rhythm, S1, S2 without murmur, rub or gallop. ABDOMEN: Soft, nontender, nondistended, no guarding, no rebound. Partially reducible umbilical hernia. EXTREMITIES: BLE evans ulcerations with serous drainage, no obvious purulent discharge, wounds continue to improve NEUROLOGICAL: Normal speech. Laboratory Results - last 24 hr 12/15/19 12/15/19 12/15/19 10:48 10:48 13:20 WBC 8.2 RBC 4.28 Hgb 12.2 Hct 37.4 MCV 87.3 MCH 28.4 MCHC 32.5 RDW 16.3 H Plt Count 280 MPV 7.5 D-Dimer 1251 H Sodium 141 Potassium 3.8 Chloride 109 H Carbon Dioxide 24 Anion Gap 7 L BUN 12.5 Creatinine 0.9 Est GFR (CKD-EPI)AfAm 109.50 Est GFR (CKD-EPI)NonAf 94.48 Random Glucose 111 H Calcium 8.3 L Phosphorus 2.9 Magnesium 2.3 Active Medications Generic Name Dose Route Start Last Admin Trade Name Freq PRN Reason Stop Dose Admin Acetaminophen 650 mg 12/08/19 15:32 12/14/19 06:44 Tylenol - PO 650 mg Q6H PRN Administration PAIN LEVEL 1-5 Acetaminophen 325 mg 12/14/19 14:03 12/16/19 05:01 Tylenol - PO 325 mg TID PRN Administration PAIN SCALE 7-10 Amlodipine Besylate 10 mg 12/09/19 10:00 12/15/19 09:28 Norvasc - PO 10 mg DAILY [facility] Administration Apixaban 10 mg 12/15/19 22:00 12/15/19 21:36 Eliquis - PO 12/22/19 21:59 10 mg BID [facility] Administration Aspirin 81 mg 12/09/19 10:45 12/15/19 09:29 Ecotrin - PO 81 mg DAILY [facility] Administration Atorvastatin Calcium 20 mg 12/10/19 22:00 12/15/19 21:35 Lipitor - PO 20 mg HS [facility] Administration Carvedilol 12.5 mg 12/12/19 22:00 12/15/19 21:36 Coreg - PO 12.5 mg BID [facility] Administration Collagenase 1 applic 12/12/19 16:30 12/15/19 09:29 Santyl - TP 1 applic DAILY [facility] Administration Protocol Gabapentin 800 mg 12/08/19 22:00 12/16/19 05:00 Neurontin - PO 800 mg TID [facility] Administration Piperacillin Sod/Tazobactam 50 mls @ 100 mls/hr 12/09/19 18:00 12/16/19 02:30 Sod 3.375 gm/ Dextrose IVPB 100 mls/hr Q8H-IV [facility] Administration Protocol Ibuprofen 800 mg 12/15/19 10:00 12/15/19 21:37 Motrin - PO Not Given BID [facility] Oxycodone HCl 5 mg 12/14/19 14:03 12/16/19 05:00 Roxicodone - PO 5 mg TID PRN Administration PAIN SCALE 7-10 Triamterene/HCTZ 1 cap 12/16/19 10:00 Dyazide 25/37.5mg PO DAILY [facility] ASSESSMENT/PLAN: 59M w/ pmh of CM, CHF, and chronic BLE wounds(> 2ys) referred to [facility] for BLE wounds by Dr Meyer for recommendation of IV abx. Chronic venous congestion with LLE cellulitis LLE CX(12/08/19): nonlactose ferment GNB, group D strep, MSSA, diphtheroid/corynebacterium pain regimen: gabapentin, acetaminophen, oxycodone Wound Care consulted/Dr. Lopez - patient see's yovana in clinic ID consult (Betsy): Prelim CS + for Group D Strep or Enterococcus, Presumptive MSSA, Diptheroid/Corynebacterium Vanc d/c today Continue IV Zoysn Day 8 Surgery consulted and discussed with Dr. Lopez for wound care and recommended Santyl to wounds, cover with damp to dry 4x4s and kerlix Bilateral compression with souleymane wraps once cellulitis has receded (wrap from metacarpal heads to below knee) -continuing all wound care and treatments - Patient to continue IV antibiotics and wound care will reassess Tachycardia TSH ordered - normal EKG 12/12 showed sinus tachy US LE ordered 12/12 negative DVT Consulted pulm about possible V/Q scan - patient unable to fit in machine Start therapeutic eliquis for PE - 10mg BID - Patient Pharmacy was closed after 3 pm today, tried to call to confirm he is covered for eliquis if he is sent home with it. Will confirm Sunday 12/17 continue to monitor Chronic umbilical hernia --nonobstructing and asymptomatic pt has [facility] appt for Lap UHR on 12/12/19 Surg Consult(Sae): --no elective repair while getting abx for infection/ follow up outpatient BLE neuropathy cw gabapentin HTN cw norvasc patient Hctz confirmed and added today CHF coreg atorvastatin FEN sodium controlled diet Visit type - Emergency Visit Emergency Visit: Yes ED Registration Date: 12/08/19 Care time: The patient presented to the Emergency Department on the above date and was hospitalized for further evaluation of their emergent condition. - New Patient This patient is new to me today: No - Critical Care Critical Care patient: No - Discharge Referral Referred to [facility] Med P.C.: Yes Physician Referral: Isiah Lopez DO ([facility]) ATTENDING PHYSICIAN STATEMENT I saw and evaluated the patient. I reviewed the resident's note and discussed the case with the resident. I agree with the resident's findings and plan as documented. SUBJECTIVE: OBJECTIVE: ASSESSMENT AND PLAN:
[2019-12-16 09:07] LABS: BLOOD UREA NITROGEN 10.9 mg/dL (7-18); CALCIUM 8.7 mg/dL (8.5-10.1); CREATININE 0.8 mg/dL (0.55-1.3); MAGNESIUM 2.3 mg/dL (1.8-2.4); PHOSPHOROUS 3.4 mg/dL (2.5-4.9); POTASSIUM 3.9 mmol/L (3.5-5.1)
[2019-12-16] MEDS ORDERED: PT OWN MED DRAWER 7, Y5N ONE (09:55)
[2019-12-16] MEDS: amLODIPine BESYLATE 10 MG TABLET (FP) PO SCH (10:03)
[2019-12-16] MEDS: ASPIRIN COATED 81 MG TABLET.EC PO SCH (10:03)
[2019-12-16] MEDS: IBUPROFEN 400 MG TABLET (FP) PO SCH (10:03)
[2019-12-16] MEDS: TRIAMTERENE AND HCTZ - 37.5 MG/25 MG CAPSULE PO SCH (10:03)
[2019-12-16] MEDS: CARVEDILOL 12.5 MG TABLET (FP) PO SCH ×2 (10:03→22:04)
[2019-12-16] MEDS: COLLAGENASE CLOSTRIDIUM HIST. 30 GRAMS TUBE TP SCH (10:08)
[2019-12-16] MEDS: APIXABAN 5 MG TABLET PO SCH ×2 (11:37→22:05)
--- NOTE | 2019-12-16 11:44 | PN ---
Progress Note, Physician History of Present Illness: pulmonary alert,comfortable,tachycardic - Current Medication List Current Medications: Active Medications Acetaminophen (Tylenol -) 650 mg PO Q6H PRN PRN Reason: PAIN LEVEL 1-5 Last Admin: 12/14/19 06:44 Dose: 650 mg Documented by: Acetaminophen (Tylenol -) 325 mg PO TID PRN PRN Reason: PAIN SCALE 7-10 Last Admin: 12/16/19 05:01 Dose: 325 mg Documented by: Amlodipine Besylate (Norvasc -) 10 mg PO DAILY [facility] Last Admin: 12/16/19 10:03 Dose: 10 mg Documented by: Apixaban (Eliquis -) 10 mg PO BID [facility] Stop: 12/22/19 21:59 Last Admin: 12/16/19 11:37 Dose: 10 mg Documented by: Aspirin (Ecotrin -) 81 mg PO DAILY [facility] Last Admin: 12/16/19 10:03 Dose: 81 mg Documented by: Atorvastatin Calcium (Lipitor -) 20 mg PO HS [facility] Last Admin: 12/15/19 21:35 Dose: 20 mg Documented by: Carvedilol (Coreg -) 12.5 mg PO BID [facility] Last Admin: 12/16/19 10:03 Dose: 12.5 mg Documented by: Collagenase (Santyl -) 1 applic TP DAILY [facility]; Protocol Last Admin: 12/16/19 10:08 Dose: 1 applic Documented by: Gabapentin (Neurontin -) 800 mg PO TID [facility] Last Admin: 12/16/19 05:00 Dose: 800 mg Documented by: Piperacillin Sod/Tazobactam (Sod 3.375 gm/ Dextrose) 50 mls @ 100 mls/hr IVPB Q8H-IV [facility]; Protocol Last Admin: 12/16/19 10:08 Dose: 100 mls/hr Documented by: Ibuprofen (Motrin -) 800 mg PO BID [facility] Last Admin: 12/16/19 10:03 Dose: 800 mg Documented by: Oxycodone HCl (Roxicodone -) 5 mg PO TID PRN PRN Reason: PAIN SCALE 7-10 Last Admin: 12/16/19 05:00 Dose: 5 mg Documented by: Triamterene/HCTZ (Dyazide 25/37.5mg) 1 cap PO DAILY [facility] Last Admin: 12/16/19 10:03 Dose: 1 cap Documented by: - Objective Vital Signs: Vital Signs Temperature 97.8 F 12/16/19 05:00 Pulse Rate 120 H 12/16/19 05:00 Respiratory Rate 20 12/16/19 05:00 Blood Pressure 148/95 12/16/19 05:00 O2 Sat by Pulse Oximetry (%) 96 12/15/19 21:00 Constitutional: Yes: Calm, Obese Eyes: Yes: WNL HENT: Yes: WNL Neck: Yes: WNL Cardiovascular: Yes: Tachycardia, S1, S2 Respiratory: Yes: Diminished Gastrointestinal: Yes: Normal Bowel Sounds, Soft Extremities: Yes: WNL Edema: Yes Labs: CBC, BMP 12/16/19 06:50 12/16/19 06:50 Problem List - Problems (1) Tachycardia Code(s): R00.0 - TACHYCARDIA, UNSPECIFIED (2) Cardiomyopathy Code(s): I42.9 - CARDIOMYOPATHY, UNSPECIFIED (3) HLD (hyperlipidemia) Code(s): E78.5 - HYPERLIPIDEMIA, UNSPECIFIED (4) HTN (hypertension) Code(s): I10 - ESSENTIAL (PRIMARY) HYPERTENSION (5) Infected stasis ulcer of left lower extremity Code(s): I83.229 - VARICOS VN OF L LOW EXTREM W ULC OF UNSP SITE AND INFLAM; L97.929 - NON-PRS CHRONIC ULC UNSP PRT OF L LOW LEG W UNSP SEVERITY (6) Wound of lower extremity Code(s): S81.809A - UNSPECIFIED OPEN WOUND, UNSPECIFIED LOWER LEG, INIT ENCNTR Qualifiers: Encounter type: initial encounter Laterality: left Qualified Code(s): S81.802A - Unspecified open wound, left lower leg, initial encounter (7) Venous stasis ulcers of both lower extremities Code(s): I83.019 - VARICOSE VEINS OF RIGHT LOWER EXTREMITY W ULCER OF UNSP SITE; I83.029 - VARICOSE VEINS OF LEFT LOWER EXTREMITY W ULCER OF UNSP SITE; L97.919 - NON-PRS CHRONIC ULC UNSP PRT OF R LOW LEG W UNSP SEVERITY; L97.929 - NON-PRS CHRONIC ULC UNSP PRT OF L LOW LEG W UNSP SEVERITY Assessment/Plan IMP TACHYCARDIA INFECTED LLE ULCERS LE ULCERS PVD CARDIOMYOPATHY CHF MORBID OBESITY HTN HLD PLAN O2 NEEDED ABX PER ID WOUND CARE ELIQUIS ECHO Problem List - Problems (1) Tachycardia Code(s): R00.0 - TACHYCARDIA, UNSPECIFIED (2) Cardiomyopathy Code(s): I42.9 - CARDIOMYOPATHY, UNSPECIFIED (3) HLD (hyperlipidemia) Code(s): E78.5 - HYPERLIPIDEMIA, UNSPECIFIED (4) HTN (hypertension) Code(s): I10 - ESSENTIAL (PRIMARY) HYPERTENSION (5) Infected stasis ulcer of left lower extremity Code(s): I83.229 - VARICOS VN OF L LOW EXTREM W ULC OF UNSP SITE AND INFLAM; L97.929 - NON-PRS CHRONIC ULC UNSP PRT OF L LOW LEG W UNSP SEVERITY (6) Wound of lower extremity Code(s): S81.809A - UNSPECIFIED OPEN WOUND, UNSPECIFIED LOWER LEG, INIT ENCNTR Qualifiers: Encounter type: initial encounter Laterality: left Qualified Code(s): S81.802A - Unspecified open wound, left lower leg, initial encounter (7) Venous stasis ulcers of both lower extremities Code(s): I83.019 - VARICOSE VEINS OF RIGHT LOWER EXTREMITY W ULCER OF UNSP SITE; I83.029 - VARICOSE VEINS OF LEFT LOWER EXTREMITY W ULCER OF UNSP SITE; L97.919 - NON-PRS CHRONIC ULC UNSP PRT OF R LOW LEG W UNSP SEVERITY; L97.929 - NON-PRS CHRONIC ULC UNSP PRT OF L LOW LEG W UNSP SEVERITY Problem List - Problems (1) Tachycardia Code(s): R00.0 - TACHYCARDIA, UNSPECIFIED (2) Cardiomyopathy Code(s): I42.9 - CARDIOMYOPATHY, UNSPECIFIED (3) HLD (hyperlipidemia) Code(s): E78.5 - HYPERLIPIDEMIA, UNSPECIFIED (4) HTN (hypertension) Code(s): I10 - ESSENTIAL (PRIMARY) HYPERTENSION (5) Infected stasis ulcer of left lower extremity Code(s): I83.229 - VARICOS VN OF L LOW EXTREM W ULC OF UNSP SITE AND INFLAM; L97.929 - NON-PRS CHRONIC ULC UNSP PRT OF L LOW LEG W UNSP SEVERITY (6) Wound of lower extremity Code(s): S81.809A - UNSPECIFIED OPEN WOUND, UNSPECIFIED LOWER LEG, INIT ENCNTR Qualifiers: Encounter type: initial encounter Laterality: left Qualified Code(s): S81.802A - Unspecified open wound, left lower leg, initial encounter (7) Venous stasis ulcers of both lower extremities Code(s): I83.019 - VARICOSE VEINS OF RIGHT LOWER EXTREMITY W ULCER OF UNSP SITE; I83.029 - VARICOSE VEINS OF LEFT LOWER EXTREMITY W ULCER OF UNSP SITE; L97.919 - NON-PRS CHRONIC ULC UNSP PRT OF R LOW LEG W UNSP SEVERITY; L97.929 - NON-PRS CHRONIC ULC UNSP PRT OF L LOW LEG W UNSP SEVERITY
--- NOTE | 2019-12-16 15:41 | PN ---
Progress Note, Physician History of Present Illness: stable no new issues - Current Medication List Current Medications: Active Medications Acetaminophen (Tylenol -) 650 mg PO Q6H PRN PRN Reason: PAIN LEVEL 1-5 Last Admin: 12/14/19 06:44 Dose: 650 mg Documented by: Acetaminophen (Tylenol -) 325 mg PO TID PRN PRN Reason: PAIN SCALE 7-10 Last Admin: 12/16/19 05:01 Dose: 325 mg Documented by: Amlodipine Besylate (Norvasc -) 10 mg PO DAILY [facility] Last Admin: 12/16/19 10:03 Dose: 10 mg Documented by: Apixaban (Eliquis -) 10 mg PO BID [facility] Stop: 12/22/19 21:59 Last Admin: 12/16/19 11:37 Dose: 10 mg Documented by: Aspirin (Ecotrin -) 81 mg PO DAILY [facility] Last Admin: 12/16/19 10:03 Dose: 81 mg Documented by: Atorvastatin Calcium (Lipitor -) 20 mg PO HS [facility] Last Admin: 12/15/19 21:35 Dose: 20 mg Documented by: Carvedilol (Coreg -) 12.5 mg PO BID [facility] Last Admin: 12/16/19 10:03 Dose: 12.5 mg Documented by: Collagenase (Santyl -) 1 applic TP DAILY [facility]; Protocol Last Admin: 12/16/19 10:08 Dose: 1 applic Documented by: Gabapentin (Neurontin -) 800 mg PO TID [facility] Last Admin: 12/16/19 14:27 Dose: 800 mg Documented by: Piperacillin Sod/Tazobactam (Sod 3.375 gm/ Dextrose) 50 mls @ 100 mls/hr IVPB Q8H-IV [facility]; Protocol Last Admin: 12/16/19 10:08 Dose: 100 mls/hr Documented by: Ibuprofen (Motrin -) 800 mg PO BID [facility] Last Admin: 12/16/19 10:03 Dose: 800 mg Documented by: Oxycodone HCl (Roxicodone -) 5 mg PO TID PRN PRN Reason: PAIN SCALE 7-10 Last Admin: 12/16/19 05:00 Dose: 5 mg Documented by: Triamterene/HCTZ (Dyazide 25/37.5mg) 1 cap PO DAILY [facility] Last Admin: 12/16/19 10:03 Dose: 1 cap Documented by: - Objective Vital Signs: Vital Signs Temperature 98.5 F 12/16/19 10:00 Pulse Rate 122 H 12/16/19 10:00 Respiratory Rate 19 12/16/19 10:00 Blood Pressure 122/71 12/16/19 10:00 O2 Sat by Pulse Oximetry (%) 97 12/16/19 09:00 Constitutional: Yes: No Distress, Calm, Obese Cardiovascular: Yes: S1, S2 Respiratory: Yes: Regular, CTA Bilaterally Gastrointestinal: Yes: Normal Bowel Sounds, Soft Musculoskeletal: Yes: WNL Extremities: Yes: Other Wound/Incision: Yes: Other Neurological: Yes: Alert, Oriented Psychiatric: Yes: Alert, Oriented Labs: CBC, BMP 12/16/19 06:50 12/16/19 06:50 INR, PTT INR 1.06 (0.83-1.09) 12/08/19 13:10 Assessment/Plan Problem List - Problems (1) Wound of lower extremity Code(s): S81.809A - UNSPECIFIED OPEN WOUND, UNSPECIFIED LOWER LEG, INIT ENCNTR Qualifiers: Qualified Code(s): S81.802A - Unspecified open wound, left lower leg, initial encounter (2) Venous stasis ulcers of both lower extremities Code(s): I83.019 - VARICOSE VEINS OF RIGHT LOWER EXTREMITY W ULCER OF UNSP SITE; I83.029 - VARICOSE VEINS OF LEFT LOWER EXTREMITY W ULCER OF UNSP SITE; L97.919 - NON-PRS CHRONIC ULC UNSP PRT OF R LOW LEG W UNSP SEVERITY; L97.929 - NON-PRS CHRONIC ULC UNSP PRT OF L LOW LEG W UNSP SEVERITY (3) Infected stasis ulcer of left lower extremity Code(s): I83.229 - VARICOS VN OF L LOW EXTREM W ULC OF UNSP SITE AND INFLAM; L97.929 - NON-PRS CHRONIC ULC UNSP PRT OF L LOW LEG W UNSP SEVERITY (4) Cardiomyopathy Code(s): I42.9 - CARDIOMYOPATHY, UNSPECIFIED (5) HTN (hypertension) Code(s): I10 - ESSENTIAL (PRIMARY) HYPERTENSION (6) HLD (hyperlipidemia) Code(s): E78.5 - HYPERLIPIDEMIA, UNSPECIFIED Assessment/Plan Infected LLE chronic ulcer b/l LE ulcers Venous stasis HTN HLD CM Morbid obesity Onychomycosis continue abx wound cx rest as per the team wound care physio sensitivities and identification awaited
--- NOTE | 2019-12-16 16:27 | PN ---
Teaching Attending Note Name of Resident: Cathy Olsen ATTENDING PHYSICIAN STATEMENT I saw and evaluated the patient. I reviewed the resident's note and discussed the case with the resident. I agree with the resident's findings and plan as documented. SUBJECTIVE: No fever or chills. No KLEIN. no diarrhea OBJECTIVE: NAD, awake, alert, cooperative. CV: RRR. Lungs: CTAB Ext: wounds look better with clean base and surrounding hyperpigmentation ABD: soft. discolored umbilical hernia which is reducible and non tender. not changed in size ASSESSMENT AND PLAN: 59 y/o man with h/o CHF, HTN, umbilical, HLP, peripheral neuropathy , tachycardia , hernia, and chronic wounds who presneted with infected wounds on legs 1- Infected leg wounds 2- Umbilical hernia . 3- HTN 4- Sinus tachycardia, can't r/o PE Plan: - cont zosyn. - discussed with patient his AC options and bleeding side effects. he agrees to empiric AC and chose eliquis. He understands the black box warning of spinal bleed with eliquis . He denies anyh/o bleeding in past - eliquis 10 BID x 7 days , then 5 BID for 3-6 months - wound dressing - final Id and sens of wound cx is stillpending - cont norvasc. - cont HCTZ/triamterine . he says he has torsemide 20 as needed - cont wound care and santyl. - Hernia repair as out pt. ASSESSMENT AND PLAN:
[2019-12-16] MEDS: ATORVASTATIN CA 20 MG TABLET (FP) PO SCH (22:04)
[2019-12-16] MEDS: IBUPROFEN 400 MG TABLET (FP) PO PRN (23:32)
[2019-12-17] MEDS ORDERED: PIPERACILLIN/TAZOBACTAM 3.375 GM VIAL IVPB ONE ×3 (02:02→17:09)
[2019-12-17] MEDS ORDERED: DEXTROSE 5%-WATER - 50 ML IVPB ONE ×3 (02:02→17:09)
[2019-12-17] MEDS: PIPERACILLIN/TAZOB 3.375 GM 3.375 GM in DEXTROSE 5%-WATER - 50 ML IVPB SCH ×3 (02:10→17:57)
[2019-12-17] MEDS: GABAPENTIN 400 MG CAPSULE PO SCH ×3 (05:18→21:44)
--- NOTE | 2019-12-17 07:46 | PN ---
Progress Note, Physician History of Present Illness: PULMONARY ALERT,COMFORTABLE ,-RESP DISTRESS - Current Medication List Current Medications: Active Medications Acetaminophen (Tylenol -) 650 mg PO Q6H PRN PRN Reason: PAIN LEVEL 1-5 Last Admin: 12/14/19 06:44 Dose: 650 mg Documented by: Acetaminophen (Tylenol -) 325 mg PO TID PRN PRN Reason: PAIN SCALE 7-10 Last Admin: 12/16/19 20:35 Dose: 325 mg Documented by: Amlodipine Besylate (Norvasc -) 10 mg PO DAILY [facility] Last Admin: 12/16/19 10:03 Dose: 10 mg Documented by: Apixaban (Eliquis -) 10 mg PO BID [facility] Stop: 12/22/19 21:59 Last Admin: 12/16/19 22:05 Dose: 10 mg Documented by: Aspirin (Ecotrin -) 81 mg PO DAILY [facility] Last Admin: 12/16/19 10:03 Dose: 81 mg Documented by: Atorvastatin Calcium (Lipitor -) 20 mg PO HS [facility] Last Admin: 12/16/19 22:04 Dose: 20 mg Documented by: Carvedilol (Coreg -) 12.5 mg PO BID [facility] Last Admin: 12/16/19 22:04 Dose: 12.5 mg Documented by: Collagenase (Santyl -) 1 applic TP DAILY [facility]; Protocol Last Admin: 12/16/19 10:08 Dose: 1 applic Documented by: Gabapentin (Neurontin -) 800 mg PO TID [facility] Last Admin: 12/17/19 05:18 Dose: 800 mg Documented by: Piperacillin Sod/Tazobactam (Sod 3.375 gm/ Dextrose) 50 mls @ 100 mls/hr IVPB Q8H-IV [facility]; Protocol Last Admin: 12/17/19 02:10 Dose: 100 mls/hr Documented by: Ibuprofen (Motrin -) 800 mg PO BID PRN PRN Reason: PAIN LEVEL 6-10 Last Admin: 12/16/19 23:32 Dose: 800 mg Documented by: Oxycodone HCl (Roxicodone -) 5 mg PO TID PRN PRN Reason: PAIN SCALE 7-10 Last Admin: 12/16/19 20:36 Dose: 5 mg Documented by: Triamterene/HCTZ (Dyazide 25/37.5mg) 1 cap PO DAILY [facility] Last Admin: 12/16/19 10:03 Dose: 1 cap Documented by: - Objective Vital Signs: Vital Signs Temperature 97.4 F L 12/17/19 05:00 Pulse Rate 102 H 12/17/19 05:00 Respiratory Rate 12/17/19 05:00 Blood Pressure 111/83 12/17/19 05:00 O2 Sat by Pulse Oximetry (%) 97 12/16/19 21:00 Constitutional: Yes: Calm, Obese Eyes: Yes: WNL HENT: Yes: WNL Neck: Yes: WNL Cardiovascular: Yes: Tachycardia, S1, S2 Respiratory: Yes: Diminished Gastrointestinal: Yes: Normal Bowel Sounds, Soft Extremities: Yes: WNL Edema: Yes Labs: CBC, BMP Problem List - Problems (1) Tachycardia Code(s): R00.0 - TACHYCARDIA, UNSPECIFIED (2) Cardiomyopathy Code(s): I42.9 - CARDIOMYOPATHY, UNSPECIFIED (3) HLD (hyperlipidemia) Code(s): E78.5 - HYPERLIPIDEMIA, UNSPECIFIED (4) HTN (hypertension) Code(s): I10 - ESSENTIAL (PRIMARY) HYPERTENSION (5) Infected stasis ulcer of left lower extremity Code(s): I83.229 - VARICOS VN OF L LOW EXTREM W ULC OF UNSP SITE AND INFLAM; L97.929 - NON-PRS CHRONIC ULC UNSP PRT OF L LOW LEG W UNSP SEVERITY (6) Wound of lower extremity Code(s): S81.809A - UNSPECIFIED OPEN WOUND, UNSPECIFIED LOWER LEG, INIT ENCNTR Qualifiers: Encounter type: initial encounter Laterality: left Qualified Code(s): S81.802A - Unspecified open wound, left lower leg, initial encounter (7) Venous stasis ulcers of both lower extremities Code(s): I83.019 - VARICOSE VEINS OF RIGHT LOWER EXTREMITY W ULCER OF UNSP SITE; I83.029 - VARICOSE VEINS OF LEFT LOWER EXTREMITY W ULCER OF UNSP SITE; L97.919 - NON-PRS CHRONIC ULC UNSP PRT OF R LOW LEG W UNSP SEVERITY; L97.929 - NON-PRS CHRONIC ULC UNSP PRT OF L LOW LEG W UNSP SEVERITY Assessment/Plan IMP TACHYCARDIA INFECTED LLE ULCERS LE ULCERS PVD CARDIOMYOPATHY CHF MORBID OBESITY HTN HLD PLAN O2 NEEDED ABX PER ID WOUND CARE ELIQUIS ECHO Problem List - Problems (1) Tachycardia Code(s): R00.0 - TACHYCARDIA, UNSPECIFIED (2) Cardiomyopathy Code(s): I42.9 - CARDIOMYOPATHY, UNSPECIFIED (3) HLD (hyperlipidemia) Code(s): E78.5 - HYPERLIPIDEMIA, UNSPECIFIED (4) HTN (hypertension) Code(s): I10 - ESSENTIAL (PRIMARY) HYPERTENSION (5) Infected stasis ulcer of left lower extremity Code(s): I83.229 - VARICOS VN OF L LOW EXTREM W ULC OF UNSP SITE AND INFLAM; L97.929 - NON-PRS CHRONIC ULC UNSP PRT OF L LOW LEG W UNSP SEVERITY (6) Wound of lower extremity Code(s): S81.809A - UNSPECIFIED OPEN WOUND, UNSPECIFIED LOWER LEG, INIT ENCNTR Qualifiers: Encounter type: initial encounter Laterality: left Qualified Code(s): S81.802A - Unspecified open wound, left lower leg, initial encounter (7) Venous stasis ulcers of both lower extremities Code(s): I83.019 - VARICOSE VEINS OF RIGHT LOWER EXTREMITY W ULCER OF UNSP SITE; I83.029 - VARICOSE VEINS OF LEFT LOWER EXTREMITY W ULCER OF UNSP SITE; L97.919 - NON-PRS CHRONIC ULC UNSP PRT OF R LOW LEG W UNSP SEVERITY; L97.929 - NON-PRS CHRONIC ULC UNSP PRT OF L LOW LEG W UNSP SEVERITY Problem List - Problems (1) Tachycardia Code(s): R00.0 - TACHYCARDIA, UNSPECIFIED (2) Cardiomyopathy Code(s): I42.9 - CARDIOMYOPATHY, UNSPECIFIED (3) HLD (hyperlipidemia) Code(s): E78.5 - HYPERLIPIDEMIA, UNSPECIFIED (4) HTN (hypertension) Code(s): I10 - ESSENTIAL (PRIMARY) HYPERTENSION (5) Infected stasis ulcer of left lower extremity Code(s): I83.229 - VARICOS VN OF L LOW EXTREM W ULC OF UNSP SITE AND INFLAM; L97.929 - NON-PRS CHRONIC ULC UNSP PRT OF L LOW LEG W UNSP SEVERITY (6) Wound of lower extremity Code(s): S81.809A - UNSPECIFIED OPEN WOUND, UNSPECIFIED LOWER LEG, INIT ENCNTR Qualifiers: Encounter type: initial encounter Laterality: left Qualified Code(s): S81.802A - Unspecified open wound, left lower leg, initial encounter (7) Venous stasis ulcers of both lower extremities Code(s): I83.019 - VARICOSE VEINS OF RIGHT LOWER EXTREMITY W ULCER OF UNSP SITE; I83.029 - VARICOSE VEINS OF LEFT LOWER EXTREMITY W ULCER OF UNSP SITE; L97.919 - NON-PRS CHRONIC ULC UNSP PRT OF R LOW LEG W UNSP SEVERITY; L97.929 - NON-PRS CHRONIC ULC UNSP PRT OF L LOW LEG W UNSP SEVERITY
[2019-12-17 08:22] LABS: HEMATOCRIT 37.9 % (35.4-49); HEMOGLOBIN 12.3 GM/dL (11.7-16.9); MCH 28.3 pg (25.7-33.7); MCHC 32.5 g/dl (32.0-35.9); MEAN CELL VOLUME 87.1 fl (80-96); MEAN PLT VOLUME 7.7 fl (7.5-11.1); PLATELET COUNT 303 K/MM3 (134-434); RBC 4.35 M/mm3 (4.00-5.60); RDW 16.7 % (11.9-15.9); WHITE BLOOD COUNT 8.8 K/mm3 (4.0-10.0)
[2019-12-17 08:42] LABS: BLOOD UREA NITROGEN 11.5 mg/dL (7-18); CALCIUM 8.4 mg/dL (8.5-10.1); CREATININE 0.9 mg/dL (0.55-1.3); MAGNESIUM 2.4 mg/dL (1.8-2.4); PHOSPHOROUS 3.8 mg/dL (2.5-4.9); POTASSIUM 3.8 mmol/L (3.5-5.1)
[2019-12-17] MEDS: APIXABAN 5 MG TABLET PO SCH ×2 (09:41→21:44)
[2019-12-17] MEDS: CARVEDILOL 12.5 MG TABLET (FP) PO SCH ×2 (09:41→21:45)
[2019-12-17] MEDS: TRIAMTERENE AND HCTZ - 37.5 MG/25 MG CAPSULE PO SCH (09:41)
[2019-12-17] MEDS: amLODIPine BESYLATE 10 MG TABLET (FP) PO SCH (09:41)
[2019-12-17] MEDS: ASPIRIN COATED 81 MG TABLET.EC PO SCH (09:41)
[2019-12-17] MEDS: COLLAGENASE CLOSTRIDIUM HIST. 30 GRAMS TUBE TP SCH (09:53)
[2019-12-17] MEDS: oxyCODONE HCL 5 MG TABLET PO PRN (12:08)
[2019-12-17] MEDS: IBUPROFEN 400 MG TABLET (FP) PO PRN (12:10)
--- NOTE | 2019-12-17 12:12 | PN ---
Progress Note, Physician History of Present Illness: stable no new issues - Current Medication List Current Medications: Active Medications Acetaminophen (Tylenol -) 650 mg PO Q6H PRN PRN Reason: PAIN LEVEL 1-5 Last Admin: 12/14/19 06:44 Dose: 650 mg Documented by: Acetaminophen (Tylenol -) 325 mg PO TID PRN PRN Reason: PAIN SCALE 7-10 Last Admin: 12/16/19 20:35 Dose: 325 mg Documented by: Amlodipine Besylate (Norvasc -) 10 mg PO DAILY [facility] Last Admin: 12/17/19 09:41 Dose: 10 mg Documented by: Apixaban (Eliquis -) 10 mg PO BID [facility] Stop: 12/22/19 21:59 Last Admin: 12/17/19 09:41 Dose: 10 mg Documented by: Aspirin (Ecotrin -) 81 mg PO DAILY [facility] Last Admin: 12/17/19 09:41 Dose: 81 mg Documented by: Atorvastatin Calcium (Lipitor -) 20 mg PO HS [facility] Last Admin: 12/16/19 22:04 Dose: 20 mg Documented by: Carvedilol (Coreg -) 12.5 mg PO BID [facility] Last Admin: 12/17/19 09:41 Dose: 12.5 mg Documented by: Collagenase (Santyl -) 1 applic TP DAILY [facility]; Protocol Last Admin: 12/17/19 09:53 Dose: 1 applic Documented by: Gabapentin (Neurontin -) 800 mg PO TID [facility] Last Admin: 12/17/19 05:18 Dose: 800 mg Documented by: Piperacillin Sod/Tazobactam (Sod 3.375 gm/ Dextrose) 50 mls @ 100 mls/hr IVPB Q8H-IV [facility]; Protocol Last Admin: 12/17/19 09:41 Dose: 100 mls/hr Documented by: Ibuprofen (Motrin -) 800 mg PO BID PRN PRN Reason: PAIN LEVEL 6-10 Last Admin: 12/16/19 23:32 Dose: 800 mg Documented by: Oxycodone HCl (Roxicodone -) 5 mg PO TID PRN PRN Reason: PAIN SCALE 7-10 Last Admin: 12/16/19 20:36 Dose: 5 mg Documented by: Triamterene/HCTZ (Dyazide 25/37.5mg) 1 cap PO DAILY [facility] Last Admin: 12/17/19 09:41 Dose: 1 cap Documented by: - Objective Vital Signs: Vital Signs Temperature 97.4 F L 12/17/19 05:00 Pulse Rate 102 H 12/17/19 05:00 Respiratory Rate 12/17/19 05:00 Blood Pressure 111/83 12/17/19 05:00 O2 Sat by Pulse Oximetry (%) 97 12/16/19 21:00 Constitutional: Yes: No Distress, Calm, Obese Cardiovascular: Yes: S1, S2 Respiratory: Yes: Regular, CTA Bilaterally Gastrointestinal: Yes: Normal Bowel Sounds, Soft Musculoskeletal: Yes: WNL Extremities: Yes: Other Wound/Incision: Yes: Dressing Dry and Intact Neurological: Yes: Alert, Oriented Psychiatric: Yes: Alert, Oriented Labs: CBC, BMP 12/17/19 07:25 12/17/19 07:25 INR, PTT INR 1.06 (0.83-1.09) 12/08/19 13:10 Assessment/Plan Problem List - Problems (1) Wound of lower extremity Code(s): S81.809A - UNSPECIFIED OPEN WOUND, UNSPECIFIED LOWER LEG, INIT ENCNTR Qualifiers: Qualified Code(s): S81.802A - Unspecified open wound, left lower leg, initial encounter (2) Venous stasis ulcers of both lower extremities Code(s): I83.019 - VARICOSE VEINS OF RIGHT LOWER EXTREMITY W ULCER OF UNSP SITE; I83.029 - VARICOSE VEINS OF LEFT LOWER EXTREMITY W ULCER OF UNSP SITE; L97.919 - NON-PRS CHRONIC ULC UNSP PRT OF R LOW LEG W UNSP SEVERITY; L97.929 - NON-PRS CHRONIC ULC UNSP PRT OF L LOW LEG W UNSP SEVERITY (3) Infected stasis ulcer of left lower extremity Code(s): I83.229 - VARICOS VN OF L LOW EXTREM W ULC OF UNSP SITE AND INFLAM; L97.929 - NON-PRS CHRONIC ULC UNSP PRT OF L LOW LEG W UNSP SEVERITY (4) Cardiomyopathy Code(s): I42.9 - CARDIOMYOPATHY, UNSPECIFIED (5) HTN (hypertension) Code(s): I10 - ESSENTIAL (PRIMARY) HYPERTENSION (6) HLD (hyperlipidemia) Code(s): E78.5 - HYPERLIPIDEMIA, UNSPECIFIED Assessment/Plan Infected LLE chronic ulcer b/l LE ulcers Venous stasis HTN HLD CM Morbid obesity Onychomycosis continue abx wound cx rest as per the team wound care physio sensitivities and identification awaited
--- NOTE | 2019-12-17 15:41 | PN ---
Progress Note (short form) - Note Progress Note: Subjective: no fever or chills. no pain. has no complaints today. he denies any CAD, or stents 9 cardiac or other places) . aspirin is being taken prophylactically Objective: Vital Signs: Last Vital Signs Temp Pulse Resp BP Pulse Ox 97.1 F L 125 H 19 144/94 97 12/17/19 10:00 12/17/19 10:00 12/17/19 10:00 12/17/19 10:00 12/17/19 09:00 Laboratory Results - last 24 hr 12/17/19 12/17/19 07:25 07:25 WBC 8.8 RBC 4.35 Hgb 12.3 Hct 37.9 MCV 87.1 MCH 28.3 MCHC 32.5 RDW 16.7 H Plt Count 303 MPV 7.7 Sodium 140 Potassium 3.8 Chloride 105 Carbon Dioxide 29 Anion Gap 7 L BUN 11.5 Creatinine 0.9 Est GFR (CKD-EPI)AfAm 109.50 Est GFR (CKD-EPI)NonAf 94.48 Random Glucose 93 Calcium 8.4 L Phosphorus 3.8 Magnesium 2.4 Physical Exam: NAD, awake, alert, cooperative. CV: RRR. Lungs: CTAB Ext: La nterior evans and R anterior, lateral leg and ankle wounds look marquise same with clean base and surrounding hyperpigmentation ABD: soft. obese , discolored umbilical hernia which is reducible and non tender. not changed in size ASSESSMENT AND PLAN: 59 y/o man with h/o CHF, HTN, umbilical, HLP, peripheral neuropathy , tachycardia , hernia, and chronic wounds who presneted with infected wounds on legs 1- Infected leg wounds 2- Umbilical hernia . 3- HTN 4- Sinus tachycardia, can't r/o PE Plan: - cont zosyn. - Wound cx noted. final cx is still pending - dc asa, given prophylactically - eliquis 10 BID x 7 days , then 5 BID for 3-6 months - cont norvasc. - cont HCTZ/triamterine . - cont wound care and santyl. - Hernia repair as out pt. dispo : depends on IV to PO Abx. home with VNS when appropriate Visit type - Emergency Visit Emergency Visit: Yes ED Registration Date: 12/08/19 Care time: The patient presented to the Emergency Department on the above date and was hospitalized for further evaluation of their emergent condition. - New Patient This patient is new to me today: No - Critical Care Critical Care patient: No
[2019-12-17] MEDS: ATORVASTATIN CA 20 MG TABLET (FP) PO SCH (21:45)
[2019-12-17] MEDS ORDERED: IBUPROFEN 600 MG TABLET (FP) PO ONE (22:04)
[2019-12-18] MEDS ORDERED: PIPERACILLIN/TAZOBACTAM 3.375 GM VIAL IVPB ONE ×3 (01:42→17:54)
[2019-12-18] MEDS ORDERED: DEXTROSE 5%-WATER - 50 ML IVPB ONE ×3 (01:42→17:54)
[2019-12-18] MEDS: PIPERACILLIN/TAZOB 3.375 GM 3.375 GM in DEXTROSE 5%-WATER - 50 ML IVPB SCH ×3 (02:01→18:01)
[2019-12-18] MEDS: GABAPENTIN 400 MG CAPSULE PO SCH ×3 (05:44→21:09)
[2019-12-18] MEDS: ACETAMINOPHEN 325 MG TABLET (FP) PO PRN ×2 (06:08→20:06)
[2019-12-18] MEDS: oxyCODONE HCL 5 MG TABLET PO PRN ×2 (06:09→20:07)
[2019-12-18] MEDS ORDERED: PT OWN MED DRAWER 7, Y5N ONE (09:53)
[2019-12-18] MEDS: TRIAMTERENE AND HCTZ - 37.5 MG/25 MG CAPSULE PO SCH (09:55)
[2019-12-18] MEDS: APIXABAN 5 MG TABLET PO SCH ×2 (09:55→21:09)
[2019-12-18] MEDS: CARVEDILOL 12.5 MG TABLET (FP) PO SCH ×2 (09:55→21:10)
[2019-12-18] MEDS: amLODIPine BESYLATE 10 MG TABLET (FP) PO SCH (09:55)
[2019-12-18] MEDS: IBUPROFEN 400 MG TABLET (FP) PO PRN (09:59)
[2019-12-18] MEDS: COLLAGENASE CLOSTRIDIUM HIST. 30 GRAMS TUBE TP SCH (11:19)
--- NOTE | 2019-12-18 11:24 | PN ---
Progress Note (short form) - Note Progress Note: PULMONARY States breathing is improving. Still tachycardic. No chest pain. Vital Signs Period Temp Pulse Resp BP Sys/Ventura Pulse Ox Last 24 Hr 97.7 F-98.5 F 91-126 20-20 115-141/80-98 97 Gen: NAD at rest Heart: RRR Lung: distant breath sounds Abd: soft, nontender Ext: no edema CBC, BMP 12/17/19 07:25 12/17/19 07:25 Active Medications Acetaminophen (Tylenol -) 650 mg PO Q6H PRN PRN Reason: PAIN LEVEL 1-5 Last Admin: 12/14/19 06:44 Dose: 650 mg Documented by: Acetaminophen (Tylenol -) 325 mg PO TID PRN PRN Reason: PAIN SCALE 7-10 Last Admin: 12/18/19 06:08 Dose: 325 mg Documented by: Amlodipine Besylate (Norvasc -) 10 mg PO DAILY [facility] Last Admin: 12/18/19 09:55 Dose: 10 mg Documented by: Apixaban (Eliquis -) 10 mg PO BID [facility] Stop: 12/22/19 21:59 Last Admin: 12/18/19 09:55 Dose: 10 mg Documented by: Atorvastatin Calcium (Lipitor -) 20 mg PO HS [facility] Last Admin: 12/17/19 21:45 Dose: 20 mg Documented by: Carvedilol (Coreg -) 12.5 mg PO BID [facility] Last Admin: 12/18/19 09:55 Dose: 12.5 mg Documented by: Collagenase (Santyl -) 1 applic TP DAILY [facility]; Protocol Last Admin: 12/18/19 11:19 Dose: Not Given Documented by: Gabapentin (Neurontin -) 800 mg PO TID [facility] Last Admin: 12/18/19 05:44 Dose: 800 mg Documented by: Piperacillin Sod/Tazobactam (Sod 3.375 gm/ Dextrose) 50 mls @ 100 mls/hr IVPB Q8H-IV [facility]; Protocol Last Admin: 12/18/19 09:55 Dose: 100 mls/hr Documented by: Ibuprofen (Motrin -) 800 mg PO BID PRN PRN Reason: PAIN LEVEL 6-10 Last Admin: 12/18/19 09:59 Dose: 800 mg Documented by: Oxycodone HCl (Roxicodone -) 5 mg PO TID PRN PRN Reason: PAIN SCALE 7-10 Last Admin: 12/18/19 06:09 Dose: 5 mg Documented by: Triamterene/HCTZ (Dyazide 25/37.5mg) 1 cap PO DAILY [facility] Last Admin: 12/18/19 09:55 Dose: 1 cap Documented by: A/P Leg Ulcer Infection Sinus Tachycardia r/o VTE CHF PAD Morbid Obesity HTN Hyperlipidemia - continue antibiotics - agree with empiric anticoagulation - O2 to keep SpO2 >90% - echocardiogram if feasible
--- NOTE | 2019-12-18 12:04 | PN ---
Progress Note, Physician History of Present Illness: stable no new issues wound looks good cellulitis improved - Current Medication List Current Medications: Active Medications Acetaminophen (Tylenol -) 650 mg PO Q6H PRN PRN Reason: PAIN LEVEL 1-5 Last Admin: 12/14/19 06:44 Dose: 650 mg Documented by: Acetaminophen (Tylenol -) 325 mg PO TID PRN PRN Reason: PAIN SCALE 7-10 Last Admin: 12/18/19 06:08 Dose: 325 mg Documented by: Amlodipine Besylate (Norvasc -) 10 mg PO DAILY [facility] Last Admin: 12/18/19 09:55 Dose: 10 mg Documented by: Apixaban (Eliquis -) 10 mg PO BID [facility] Stop: 12/22/19 21:59 Last Admin: 12/18/19 09:55 Dose: 10 mg Documented by: Atorvastatin Calcium (Lipitor -) 20 mg PO HS [facility] Last Admin: 12/17/19 21:45 Dose: 20 mg Documented by: Carvedilol (Coreg -) 12.5 mg PO BID [facility] Last Admin: 12/18/19 09:55 Dose: 12.5 mg Documented by: Collagenase (Santyl -) 1 applic TP DAILY [facility]; Protocol Last Admin: 12/18/19 11:19 Dose: Not Given Documented by: Gabapentin (Neurontin -) 800 mg PO TID [facility] Last Admin: 12/18/19 05:44 Dose: 800 mg Documented by: Piperacillin Sod/Tazobactam (Sod 3.375 gm/ Dextrose) 50 mls @ 100 mls/hr IVPB Q8H-IV [facility]; Protocol Last Admin: 12/18/19 09:55 Dose: 100 mls/hr Documented by: Ibuprofen (Motrin -) 800 mg PO BID PRN PRN Reason: PAIN LEVEL 6-10 Last Admin: 12/18/19 09:59 Dose: 800 mg Documented by: Oxycodone HCl (Roxicodone -) 5 mg PO TID PRN PRN Reason: PAIN SCALE 7-10 Last Admin: 12/18/19 06:09 Dose: 5 mg Documented by: Triamterene/HCTZ (Dyazide 25/37.5mg) 1 cap PO DAILY [facility] Last Admin: 12/18/19 09:55 Dose: 1 cap Documented by: - Objective Vital Signs: Vital Signs Temperature 98.4 F 12/18/19 08:48 Pulse Rate 124 H 12/18/19 08:48 Respiratory Rate 20 12/18/19 08:48 Blood Pressure 139/98 12/18/19 08:48 O2 Sat by Pulse Oximetry (%) 94 L 12/18/19 09:00 Constitutional: Yes: No Distress, Calm, Obese Eyes: Yes: Conjunctiva Clear Neck: Yes: Supple, Trachea Midline Cardiovascular: Yes: S1, S2 Respiratory: Yes: Regular, CTA Bilaterally Gastrointestinal: Yes: Normal Bowel Sounds, Soft Musculoskeletal: Yes: Other Extremities: Yes: Erythema (improved) Integumentary: Yes: Other Wound/Incision: Yes: Clean/Dry Neurological: Yes: Alert, Oriented Psychiatric: Yes: Alert, Oriented Labs: CBC, BMP 12/17/19 07:25 12/17/19 07:25 INR, PTT INR 1.06 (0.83-1.09) 12/08/19 13:10 Assessment/Plan Problem List - Problems (1) Wound of lower extremity Code(s): S81.809A - UNSPECIFIED OPEN WOUND, UNSPECIFIED LOWER LEG, INIT ENCNTR Qualifiers: Qualified Code(s): S81.802A - Unspecified open wound, left lower leg, initial encounter (2) Venous stasis ulcers of both lower extremities Code(s): I83.019 - VARICOSE VEINS OF RIGHT LOWER EXTREMITY W ULCER OF UNSP SITE; I83.029 - VARICOSE VEINS OF LEFT LOWER EXTREMITY W ULCER OF UNSP SITE; L97.919 - NON-PRS CHRONIC ULC UNSP PRT OF R LOW LEG W UNSP SEVERITY; L97.929 - NON-PRS CHRONIC ULC UNSP PRT OF L LOW LEG W UNSP SEVERITY (3) Infected stasis ulcer of left lower extremity Code(s): I83.229 - VARICOS VN OF L LOW EXTREM W ULC OF UNSP SITE AND INFLAM; L97 .929 - NON-PRS CHRONIC ULC UNSP PRT OF L LOW LEG W UNSP SEVERITY (4) Cardiomyopathy Code(s): I42.9 - CARDIOMYOPATHY, UNSPECIFIED (5) HTN (hypertension) Code(s): I10 - ESSENTIAL (PRIMARY) HYPERTENSION (6) HLD (hyperlipidemia) Code(s): E78.5 - HYPERLIPIDEMIA, UNSPECIFIED Assessment/Plan Infected LLE chronic ulcer b/l LE ulcers Venous stasis HTN HLD CM Morbid obesity Onychomycosis plan can change abx to augmentin 875mg po bid for 5 more days
--- NOTE | 2019-12-18 19:17 | PN ---
Teaching Attending Note Name of Resident: Cathy Olsen ATTENDING PHYSICIAN STATEMENT I saw and evaluated the patient. I reviewed the resident's note and discussed the case with the resident. I agree with the resident's findings and plan as documented. SUBJECTIVE: No fever or chills . no KLEIN, no PSB. pain on and off ( chronic sacral and back pain 0 OBJECTIVE: NAD, awake, alert, cooperative. CV: RRR. Lungs: CTAB Ext: leg ulcers with clean base and surrounding hyperpigmentation ABD: soft. obese , discolored umbilical hernia which is reducible and non tender. not changed in size ASSESSMENT AND PLAN: 59 y/o man with h/o CHF, HTN, umbilical, HLP, peripheral neuropathy , tachycardia , hernia, and chronic wounds who presneted with infected wounds on legs 1- Infected leg wounds 2- Umbilical hernia . 3- HTN 4- Sinus tachycardia, can't r/o PE . treating empirically Plan: - switch to Augmentin . d/w Dr. Meyer - final wound cx is still pending - eliquis 10 BID x 7 days, then 5 BID for 3-6 months - cont norvasc. - cont HCTZ/triamterine . - cont wound care and santyl. - Hernia repair as out pt. - dc ibuprofen with AC dispo : can't leave today due to arrangements of home care. will dc tomorrow
[2019-12-18] MEDS: ATORVASTATIN CA 20 MG TABLET (FP) PO SCH (21:10)
--- NOTE | 2019-12-18 21:35 | PN ---
Physical Exam: SUBJECTIVE: Patient seen and examined bedside. In no acute distress. No events overnight. OBJECTIVE: Vital Signs Period Temp Pulse Resp BP Sys/Ventura Pulse Ox Last 24 Hr 97.1 F-98.4 F 112-126 20-20 115-141/80-98 94 GENERAL: Alert and oriented, very obese HEAD: Normal with no signs of trauma. LUNGS: Breath sounds equal, clear to auscultation bilaterally, no wheezes, no crackles, no accessory muscle use. HEART: Tachycardic with regular rhythm, S1, S2 without murmur, rub or gallop. ABDOMEN: Soft, nontender, nondistended, no guarding, no rebound. Partially reducible umbilical hernia. EXTREMITIES: BLE evans ulcerations, no obvious purulent discharge, wounds continue to improve NEUROLOGICAL: Normal speech. Active Medications Generic Name Dose Route Start Last Admin Trade Name Freq PRN Reason Stop Dose Admin Acetaminophen 650 mg 12/08/19 15:32 12/18/19 20:06 Tylenol - PO 650 mg Q6H PRN Administration PAIN LEVEL 1-5 Acetaminophen 325 mg 12/14/19 14:03 12/18/19 06:08 Tylenol - PO 325 mg TID PRN Administration PAIN SCALE 7-10 Amlodipine Besylate 10 mg 12/09/19 10:00 12/18/19 09:55 Norvasc - PO 10 mg DAILY [facility] Administration Apixaban 10 mg 12/15/19 22:00 12/18/19 21:09 Eliquis - PO 12/22/19 21:59 10 mg BID [facility] Administration Atorvastatin Calcium 20 mg 12/10/19 22:00 12/18/19 21:10 Lipitor - PO 20 mg HS [facility] Administration Carvedilol 12.5 mg 12/12/19 22:00 12/18/19 21:10 Coreg - PO 12.5 mg BID [facility] Administration Collagenase 1 applic 12/12/19 16:30 12/18/19 11:19 Santyl - TP Not Given DAILY [facility] Protocol Gabapentin 800 mg 12/08/19 22:00 12/18/19 21:09 Neurontin - PO 800 mg TID [facility] Administration Piperacillin Sod/Tazobactam 50 mls @ 100 mls/hr 12/09/19 18:00 12/18/19 18:01 Sod 3.375 gm/ Dextrose IVPB 100 mls/hr Q8H-IV [facility] Administration Protocol Oxycodone HCl 5 mg 12/18/19 18:49 12/18/19 20:07 Roxicodone - PO 5 mg Q8H PRN Administration PAIN LEVEL 6-10 Triamterene/HCTZ 1 cap 12/16/19 10:00 12/18/19 09:55 Dyazide 25/37.5mg PO 1 cap DAILY [facility] Administration ASSESSMENT/PLAN: 59M w/ pmh of CM, CHF, and chronic BLE wounds(> 2ys) referred to [facility] for BLE wounds by Dr Meyer for recommendation of IV abx. Chronic venous congestion with LLE cellulitis LLE CX(12/08/19): nonlactose ferment GNB, group D strep, MSSA, diphtheroid/corynebacterium pain regimen: gabapentin, acetaminophen, oxycodone Wound Care consulted/Dr. Yen - patient see's yen in clinic ID consult (Betsy): Prelim CS + for Group D Strep or Enterococcus, Presumptive MSSA, Diptheroid/Corynebacterium Vanc d/c today Continue IV Zoysn Day 10 Surgery consulted and discussed with Dr. Yen for wound care and recommended Santyl to wounds, cover with damp to dry 4x4s and kerlix Bilateral compression with souleymane wraps once cellulitis has receded (wrap from metacarpal heads to below knee) -continuing all wound care and treatments - Patient to go home tomorrow on Augmentin BID for 5 days and follow up with wound care Tachycardia TSH ordered - normal EKG 12/12 showed sinus tachy US LE ordered 12/12 negative DVT Consulted pulm about possible V/Q scan - patient unable to fit in machine Start therapeutic eliquis for PE - 10mg BID - Patient pharmacy covers eliquis Patient Ibuprofen stopped because of Eliquis Patient to complete 3 more days of 10mg BID and then switch to 5mg BID Chronic umbilical hernia --nonobstructing and asymptomatic pt has [facility] appt for Lap UHR on 12/12/19 Surg Consult(Sae): --no elective repair while getting abx for infection/ follow up outpatient BLE neuropathy cw gabapentin HTN cw norvasc patient Hctz confirmed and added today CHF coreg atorvastatin FEN sodium controlled diet DISPO home tomorrow with VNS reinstated Visit type - Emergency Visit Emergency Visit: Yes ED Registration Date: 12/08/19 Care time: The patient presented to the Emergency Department on the above date and was hospitalized for further evaluation of their emergent condition. - New Patient This patient is new to me today: No - Critical Care Critical Care patient: No - Discharge Referral Referred to [facility] Med P.C.: Yes Physician Referral: Isaih Yen DO ([facility]) ATTENDING PHYSICIAN STATEMENT I saw and evaluated the patient. I reviewed the resident's note and discussed the case with the resident. I agree with the resident's findings and plan as documented. SUBJECTIVE: OBJECTIVE: ASSESSMENT AND PLAN:
[2019-12-19] MEDS ORDERED: PIPERACILLIN/TAZOBACTAM 3.375 GM VIAL IVPB ONE (00:54)
[2019-12-19] MEDS ORDERED: DEXTROSE 5%-WATER - 50 ML IVPB ONE (00:54)
[2019-12-19] MEDS: PIPERACILLIN/TAZOB 3.375 GM 3.375 GM in DEXTROSE 5%-WATER - 50 ML IVPB SCH ×3 (01:02→17:35)
[2019-12-19] MEDS: GABAPENTIN 400 MG CAPSULE PO SCH ×2 (05:35→13:03)
[2019-12-19] MEDS: ACETAMINOPHEN 325 MG TABLET (FP) PO PRN ×2 (05:46→14:45)
[2019-12-19] MEDS: oxyCODONE HCL 5 MG TABLET PO PRN (05:47)
--- NOTE | 2019-12-19 10:34 | PN ---
Progress Note (short form) - Note Progress Note: PULMONARY States breathing is improving. Still tachycardic. No chest pain. Vital Signs Period Temp Pulse Resp BP Sys/Ventura Pulse Ox Last 24 Hr 97.1 F-98.7 F 118-124 20-20 121-150/65-89 94 Gen: NAD at rest Heart: RRR Lung: distant breath sounds Abd: soft, nontender Ext: no edema CBC, BMP 12/17/19 07:25 12/17/19 07:25 Active Medications Acetaminophen (Tylenol -) 650 mg PO Q6H PRN PRN Reason: PAIN LEVEL 1-5 Last Admin: 12/19/19 05:46 Dose: 650 mg Documented by: Acetaminophen (Tylenol -) 325 mg PO TID PRN PRN Reason: PAIN SCALE 7-10 Last Admin: 12/18/19 06:08 Dose: 325 mg Documented by: Amlodipine Besylate (Norvasc -) 10 mg PO DAILY [facility] Last Admin: 12/18/19 09:55 Dose: 10 mg Documented by: Apixaban (Eliquis -) 10 mg PO BID [facility] Stop: 12/22/19 21:59 Last Admin: 12/18/19 21:09 Dose: 10 mg Documented by: Atorvastatin Calcium (Lipitor -) 20 mg PO HS [facility] Last Admin: 12/18/19 21:10 Dose: 20 mg Documented by: Carvedilol (Coreg -) 12.5 mg PO BID [facility] Last Admin: 12/18/19 21:10 Dose: 12.5 mg Documented by: Collagenase (Santyl -) 1 applic TP DAILY [facility]; Protocol Last Admin: 12/18/19 11:19 Dose: Not Given Documented by: Gabapentin (Neurontin -) 800 mg PO TID [facility] Last Admin: 12/19/19 05:35 Dose: 800 mg Documented by: Piperacillin Sod/Tazobactam (Sod 3.375 gm/ Dextrose) 50 mls @ 100 mls/hr IVPB Q8H-IV [facility]; Protocol Last Admin: 12/19/19 01:02 Dose: 100 mls/hr Documented by: Oxycodone HCl (Roxicodone -) 5 mg PO Q8H PRN PRN Reason: PAIN LEVEL 6-10 Last Admin: 12/19/19 05:47 Dose: 5 mg Documented by: Triamterene/HCTZ (Dyazide 25/37.5mg) 1 cap PO DAILY [facility] Last Admin: 12/18/19 09:55 Dose: 1 cap Documented by: A/P Leg Ulcer Infection Sinus Tachycardia r/o VTE CHF PAD Morbid Obesity HTN Hyperlipidemia - continue antibiotics - continue empiric anticoagulation - O2 to keep SpO2 >90% - echocardiogram if feasible
[2019-12-19] MEDS: APIXABAN 5 MG TABLET PO SCH (10:35)
[2019-12-19] MEDS: amLODIPine BESYLATE 10 MG TABLET (FP) PO SCH (10:35)
[2019-12-19] MEDS: CARVEDILOL 12.5 MG TABLET (FP) PO SCH (10:35)
[2019-12-19] MEDS ORDERED: PT OWN MED DRAWER 7, Y5N ONE (10:36)
[2019-12-19] MEDS: COLLAGENASE CLOSTRIDIUM HIST. 30 GRAMS TUBE TP SCH (10:37)
[2019-12-19] MEDS: TRIAMTERENE AND HCTZ - 37.5 MG/25 MG CAPSULE PO SCH (10:37)
--- NOTE | 2019-12-19 11:12 | ECHO ---
Version: 1 Name: ROX LITTLE Exam: Adult Echocardiogram Study Date: 12/19/2019, 10:03 AM Age: 59 Years MMode/2D Measurements & Calculations IVSd: 1.48 cm LVIDs: 2.7 cm LVIDd: 4.4 cm LVPWd: 1.19 cm LVOT diam: 2.46 cm Ao root diam: 3.6 cm LA dimension: 3.8 cm Doppler Measurements & Calculations MV E max nereyda: 83.9 cm/sec Ao max P.9 mmHg Ao V2 max: 99.1 cm/sec Procedure The study was technically limited with all images being suboptimal in quality. Left Ventricle The left ventricular size, thickness and function are normal. Ejection Fraction = 65%. The transmitr al spectral Doppler flow pattern is normal for age. Right Ventricle The right ventricle is normal in size and function. Atria Normal left and right atrial size and function. Mitral Valve The mitral valve is grossly normal. There is mild mitral regurgitation. Tricuspid Valve The tricuspid valve is not well visualized, but is grossly normal. There is mild tricuspid regurgita tion. Aortic Valve There is mild aortic valve thickening. Pulmonic Valve The pulmonic valve is not well visualized. Great Vessels The aortic root is normal size. Normal aortic arch, descending and ascending aorta. Pericardium/Pleura There is no pericardial effusion. Summary Statements The study was technically limited with all images being suboptimal in quality. The left ventricular size, thickness and function are normal Ejection Fraction = 65%. The transmitral spectral Doppler flow pattern is normal for age. The right ventricle is normal in size and function. Normal left and right atrial size and function. The mitral valve is grossly normal. There is mild mitral regurgitation. The tricuspid valve is not well visualized, but is grossly normal. There is mild tricuspid regurgitation. There is mild aortic valve thickening. The pulmonic valve is not well visualized. The aortic root is normal size. Normal aortic arch, descending and ascending aorta Davin Mata 12/19/2019, 11:11 AM Ordering Physician: Arslan Barlow Performed By: Tiffanie Sweet
--- NOTE | 2019-12-19 13:53 | PN ---
Progress Note, Physician - Current Medication List Current Medications: Active Medications Acetaminophen (Tylenol -) 650 mg PO Q6H PRN PRN Reason: PAIN LEVEL 1-5 Last Admin: 12/19/19 05:46 Dose: 650 mg Documented by: Acetaminophen (Tylenol -) 325 mg PO TID PRN PRN Reason: PAIN SCALE 7-10 Last Admin: 12/18/19 06:08 Dose: 325 mg Documented by: Amlodipine Besylate (Norvasc -) 10 mg PO DAILY [facility] Last Admin: 12/19/19 10:35 Dose: 10 mg Documented by: Apixaban (Eliquis -) 10 mg PO BID [facility] Stop: 12/22/19 21:59 Last Admin: 12/19/19 10:35 Dose: 10 mg Documented by: Atorvastatin Calcium (Lipitor -) 20 mg PO HS [facility] Last Admin: 12/18/19 21:10 Dose: 20 mg Documented by: Carvedilol (Coreg -) 12.5 mg PO BID [facility] Last Admin: 12/19/19 10:35 Dose: 12.5 mg Documented by: Collagenase (Santyl -) 1 applic TP DAILY [facility]; Protocol Last Admin: 12/19/19 10:37 Dose: 1 applic Documented by: Gabapentin (Neurontin -) 800 mg PO TID [facility] Last Admin: 12/19/19 13:03 Dose: 800 mg Documented by: Piperacillin Sod/Tazobactam (Sod 3.375 gm/ Dextrose) 50 mls @ 100 mls/hr IVPB Q8H-IV [facility]; Protocol Last Admin: 12/19/19 12:33 Dose: Not Given Documented by: Oxycodone HCl (Roxicodone -) 5 mg PO Q8H PRN PRN Reason: PAIN LEVEL 6-10 Last Admin: 12/19/19 05:47 Dose: 5 mg Documented by: Triamterene/HCTZ (Dyazide 25/37.5mg) 1 cap PO DAILY [facility] Last Admin: 12/19/19 10:37 Dose: 1 cap Documented by: - Objective Vital Signs: Vital Signs Temperature 98.7 F 12/19/19 09:15 Pulse Rate 121 H 12/19/19 09:15 Respiratory Rate 20 12/19/19 09:15 Blood Pressure 121/65 12/19/19 09:15 O2 Sat by Pulse Oximetry (%) 94 L 12/19/19 09:00 Labs: CBC, BMP 12/17/19 07:25 12/17/19 07:25 INR, PTT INR 1.06 (0.83-1.09) 12/08/19 13:10
[2019-12-19 14:47] VITALS: BP 130/73; PULSE 123; TEMP 98.5
--- NOTE | 2019-12-19 14:53 | PN ---
Teaching Attending Note Name of Resident: Cathy Olsen ATTENDING PHYSICIAN STATEMENT I saw and evaluated the patient. I reviewed the resident's note and discussed the case with the resident. I agree with the resident's findings and plan as documented. SUBJECTIVE: Patient is comfortable with no acute distress. OBJECTIVE: Vital Signs Temperature 98.5 F 12/19/19 14:46 Pulse Rate 123 H 12/19/19 14:46 Respiratory Rate 20 12/19/19 14:46 Blood Pressure 130/73 12/19/19 14:46 O2 Sat by Pulse Oximetry (%) 94 L 12/19/19 09:00 PE: per resident's note CBCD WBC 8.8 K/mm3 (4.0-10.0) 12/17/19 07:25 RBC 4.35 M/mm3 (4.00-5.60) 12/17/19 07:25 Hgb 12.3 GM/dL (11.7-16.9) 12/17/19 07:25 Hct 37.9 % (35.4-49) 12/17/19 07:25 MCV 87.1 fl (80-96) 12/17/19 07:25 MCHC 32.5 g/dl (32.0-35.9) 12/17/19 07:25 RDW 16.7 % (11.9-15.9) H 12/17/19 07:25 Plt Count 303 K/MM3 (134-434) 12/17/19 07:25 MPV 7.7 fl (7.5-11.1) 12/17/19 07:25 CMP Sodium 140 mmol/L (136-145) 12/17/19 07:25 Potassium 3.8 mmol/L (3.5-5.1) 12/17/19 07:25 Chloride 105 mmol/L (98-107) 12/17/19 07:25 Carbon Dioxide 29 mmol/L (21-32) 12/17/19 07:25 Anion Gap 7 MMOL/L (8-16) L 12/17/19 07:25 BUN 11.5 mg/dL (7-18) 12/17/19 07:25 Creatinine 0.9 mg/dL (0.55-1.3) 12/17/19 07:25 Random Glucose 93 mg/dL (74-106) 12/17/19 07:25 Calcium 8.4 mg/dL (8.5-10.1) L 12/17/19 07:25 Total Bilirubin 0.2 mg/dL (0.2-1) 12/08/19 13:10 AST 12 U/L (15-37) L 12/08/19 13:10 ALT 19 U/L (13-61) 12/08/19 13:10 Alkaline Phosphatase 36 U/L (45-117) L 12/08/19 13:10 Total Protein 6.6 g/dl (6.4-8.2) 12/08/19 13:10 Albumin 3.0 g/dl (3.4-5.0) L 12/08/19 13:10 Current Medications Generic Name Dose Route Start Last Admin Trade Name Freq PRN Reason Stop Dose Admin Acetaminophen 650 mg 12/08/19 15:32 12/19/19 14:45 Tylenol - PO 650 mg Q6H PRN Administration PAIN LEVEL 1-5 Acetaminophen 325 mg 12/14/19 14:03 12/18/19 06:08 Tylenol - PO 325 mg TID PRN Administration PAIN SCALE 7-10 Amlodipine Besylate 10 mg 12/09/19 10:00 12/19/19 10:35 Norvasc - PO 10 mg DAILY GURMEET Administration Apixaban 10 mg 12/15/19 22:00 12/19/19 10:35 Eliquis - PO 12/22/19 21:59 10 mg BID GURMEET Administration Atorvastatin Calcium 20 mg 12/10/19 22:00 12/18/19 21:10 Lipitor - PO 20 mg HS GURMEET Administration Carvedilol 12.5 mg 12/12/19 22:00 12/19/19 10:35 Coreg - PO 12.5 mg BID GURMEET Administration Collagenase 1 applic 12/12/19 16:30 12/19/19 10:37 Santyl - TP 1 applic DAILY GURMEET Administration Protocol Gabapentin 800 mg 12/08/19 22:00 12/19/19 13:03 Neurontin - PO 800 mg TID GURMEET Administration Piperacillin Sod/Tazobactam 50 mls @ 100 mls/hr 12/09/19 18:00 12/19/19 12:33 Sod 3.375 gm/ Dextrose IVPB Not Given Q8H-IV GURMEET Protocol Oxycodone HCl 5 mg 12/18/19 18:49 07/14/20 05:47 Roxicodone - PO 5 mg Q8H PRN Administration PAIN LEVEL 6-10 Triamterene/HCTZ 1 cap 12/16/19 10:00 12/19/19 10:37 Dyazide 25/37.5mg PO 1 cap DAILY GURMEET Administration Home Medications Medication Instructions Recorded Amlodipine Besylate 1 tab PO DAILY 07/14/19 Gabapentin 1 tab PO TID PRN 07/14/19 Buprenorphine 5 mcg TD WEEKLY PRN 10/23/19 Naftifine HCl [Naftin] 60 gm TP DAILY #1 tube 10/31/19 Aspirin [Aspirin EC] 81 mg PO DAILY 12/08/19 Carvedilol 12.5 mg PO BID 12/08/19 Melatonin 1 mg PO PRN 12/08/19 Torsemide 20 mg PO PRN PRN 12/08/19 Atorvastatin Ca [Lipitor] 1 tab PO DAILY 12/12/19 Oxycodone HCl/Acetaminophen 1 tab PO TID PRN 12/12/19 [Percocet 5-325 mg Tablet] Hctz 25Mg/Triamterene [Dyazide 1 tab PO DAILY 12/13/19 25/37.5 -] Amoxicillin/Potassium Clav 1 each PO BID #10 tablet 12/18/19 [Augmentin 875-125 Tablet] Apixaban [Eliquis] 5 mg PO BID 30 Days #60 tablet 12/18/19 Acetaminophen [Tylenol .Regular 325 mg PO TID PRN tablet 12/19/19 Strength -] Collagenase Clostridium Hist. 1 applic TP DAILY tube 12/19/19 [Santyl -] Microbiology 12/08/19 13:45 Leg - Left Lower Gram Stain - Final 12/08/19 13:45 Leg - Left Lower Wound Culture - Final Shewanella Putrefaciens Group D Strep Or Entero Coccus Staphylococcus Aureus Diphtheroid/Corynebacterium 12/08/19 13:10 Blood - Peripheral Venous Blood Culture - Final NO GROWTH AFTER 5 DAYS INCUBATION 12/08/19 13:10 Blood - Peripheral Venous Blood Culture - Final NO GROWTH AFTER 5 DAYS INCUBATION Duplex of Lower extremities: no evidence of DVT ECHO: no pericardial effusion , EJF 65%, otherwise normal CXR: NL xray of left tibia and fibula: no fracture., no osteo ASSESSMENT AND PLAN: This patient is a 59yom with PMhx of CHF, HTN, umbilical hernia ( patient has an appointment with his surgeon) , HLP, peripheral neuropathy , tachycardia , and chronic wounds who presented with infected wounds on left lower extremities. # Infected left lower extremity: Cx as above. s/p IV zosyn , being dc'd home on oral Augmentin x [address] Meyer, cont wound care and santyl. # Sinus tachycardia, can't r/o PE . treating empirically with Eliquis 10mg BID x 7 days, then 5 BID for 3-6 months #Umbilical hernia: out patient repair, patient has an appointment # HTN: cont norvasc. dc patient home with VNS No Motrin with Ac
--- NOTE | 2019-12-19 15:22 | DS ---
Physical Exam: SUBJECTIVE: Patient seen and examined beside. In no acute distress. No events overnight. OBJECTIVE: Vital Signs Period Temp Pulse Resp BP Sys/Ventura Pulse Ox Last 24 Hr 97.1 F-98.7 F 118-124 20-20 121-150/65-89 94-94 PHYSICAL EXAM GENERAL: Alert and oriented, very obese HEAD: Normal with no signs of trauma. LUNGS: Breath sounds equal, clear to auscultation bilaterally, no wheezes, no crackles, no accessory muscle use. HEART: Tachycardic with regular rhythm, S1, S2 without murmur, rub or gallop. ABDOMEN: Soft, nontender, nondistended, no guarding, no rebound. Partially reducible umbilical hernia that's non tender. EXTREMITIES: BLE evans ulcerations NEUROLOGICAL: Normal speech. LABS Laboratory Tests 12/08/19 12/08/19 12/08/19 13:10 13:10 13:10 WBC 9.1 RBC 3.96 L Hgb 10.9 L Hct 34.2 L MCV 86.5 MCH 27.6 MCHC 31.9 L RDW 15.8 Plt Count 294 MPV 8.0 Absolute Neuts (auto) 6.4 Neutrophils % 69.7 Lymphocytes % 15.5 Monocytes % 7.1 Eosinophils % 6.9 H Basophils % 0.8 Nucleated RBC % 0 ESR PT with INR INR PTT (Actin FS) D-Dimer Sodium 141 Potassium 4.4 Chloride 105 Carbon Dioxide 33 H Anion Gap 3 L BUN 23.3 H Creatinine 1.0 Est GFR (CKD-EPI)AfAm 96.40 Est GFR (CKD-EPI)NonAf 83.18 Random Glucose 97 Calcium 8.7 Phosphorus Magnesium Total Bilirubin 0.2 AST 12 L ALT 19 Alkaline Phosphatase 36 L C-Reactive Protein 2.5 H Total Protein 6.6 Albumin 3.0 L TSH Vancomycin Pre-Dose COVID-19 (EL) 12/08/19 12/08/19 12/08/19 13:10 13:10 16:50 WBC RBC Hgb Hct MCV MCH MCHC RDW Plt Count MPV Absolute Neuts (auto) Neutrophils % Lymphocytes % Monocytes % Eosinophils % Basophils % Nucleated RBC % ESR 90 H PT with INR 12.50 INR 1.06 PTT (Actin FS) 31.5 D-Dimer Sodium Potassium Chloride Carbon Dioxide Anion Gap BUN Creatinine Est GFR (CKD-EPI)AfAm Est GFR (CKD-EPI)NonAf Random Glucose Calcium Phosphorus Magnesium Total Bilirubin AST ALT Alkaline Phosphatase C-Reactive Protein Total Protein Albumin TSH Vancomycin Pre-Dose COVID-19 (EL) Not detected 12/11/19 12/11/19 12/11/19 05:00 08:30 08:30 WBC 6.9 RBC 4.27 Hgb 11.7 Hct 37.1 MCV 86.8 MCH 27.3 MCHC 31.5 L RDW 16.2 H Plt Count 267 MPV 7.9 Absolute Neuts (auto) 4.7 Neutrophils % 68.4 Lymphocytes % 18.9 D Monocytes % 5.7 Eosinophils % 6.3 H Basophils % 0.7 Nucleated RBC % 0 ESR PT with INR INR PTT (Actin FS) D-Dimer Sodium 140 Potassium 3.6 Chloride 104 Carbon Dioxide 29 Anion Gap 8 BUN 11.0 Creatinine 0.9 Est GFR (CKD-EPI)AfAm 109.50 Est GFR (CKD-EPI)NonAf 94.48 Random Glucose 117 H Calcium 8.2 L Phosphorus Magnesium Total Bilirubin AST ALT Alkaline Phosphatase C-Reactive Protein Total Protein Albumin TSH Vancomycin Pre-Dose 7.4 COVID-19 (EL) 12/12/19 12/12/19 12/13/19 06:30 06:30 08:04 WBC 7.1 8.1 RBC 3.98 L 4.34 Hgb 11.3 L 11.9 Hct 34.8 L 37.9 MCV 87.4 87.3 MCH 28.4 27.5 MCHC 32.5 31.5 L RDW 16.1 H 16.5 H Plt Count 265 301 MPV 8.1 7.9 Absolute Neuts (auto) 4.7 Neutrophils % 65.9 Lymphocytes % 20.2 Monocytes % 8.0 Eosinophils % 4.9 H Basophils % 1.0 Nucleated RBC % 0 ESR PT with INR INR PTT (Actin FS) D-Dimer Sodium 142 Potassium 4.0 Chloride 106 Carbon Dioxide 28 Anion Gap 7 L BUN 12.2 Creatinine 0.8 Est GFR (CKD-EPI)AfAm 114.93 Est GFR (CKD-EPI)NonAf 99.16 Random Glucose 95 Calcium 8.3 L Phosphorus 3.0 Magnesium 2.5 H Total Bilirubin AST ALT Alkaline Phosphatase C-Reactive Protein Total Protein Albumin TSH 1.42 Vancomycin Pre-Dose COVID-19 (EL) 12/13/19 12/15/19 12/15/19 08:04 10:48 10:48 WBC 8.2 RBC 4.28 Hgb 12.2 Hct 37.4 MCV 87.3 MCH 28.4 MCHC 32.5 RDW 16.3 H Plt Count 280 MPV 7.5 Absolute Neuts (auto) Neutrophils % Lymphocytes % Monocytes % Eosinophils % Basophils % Nucleated RBC % ESR PT with INR INR PTT (Actin FS) D-Dimer Sodium 141 141 Potassium 3.7 3.8 Chloride 106 109 H Carbon Dioxide 27 24 Anion Gap 9 7 L BUN 11.2 12.5 Creatinine 0.9 0.9 Est GFR (CKD-EPI)AfAm 109.50 109.50 Est GFR (CKD-EPI)NonAf 94.48 94.48 Random Glucose 98 111 H Calcium 8.7 8.3 L Phosphorus 2.9 2.9 Magnesium 2.6 H 2.3 Total Bilirubin AST ALT Alkaline Phosphatase C-Reactive Protein Total Protein Albumin TSH 1.40 D Vancomycin Pre-Dose COVID-19 (EL) 12/15/19 12/16/19 12/16/19 13:20 06:50 06:50 WBC 8.4 RBC 4.28 Hgb 12.2 Hct 37.1 MCV 86.7 MCH 28.5 MCHC 32.9 RDW 16.8 H Plt Count 303 MPV 8.2 Absolute Neuts (auto) Neutrophils % Lymphocytes % Monocytes % Eosinophils % Basophils % Nucleated RBC % ESR PT with INR INR PTT (Actin FS) D-Dimer 1251 H Sodium 143 Potassium 3.9 Chloride 108 H Carbon Dioxide 27 Anion Gap 9 BUN 10.9 Creatinine 0.8 Est GFR (CKD-EPI)AfAm 114.93 Est GFR (CKD-EPI)NonAf 99.16 Random Glucose 93 Calcium 8.7 Phosphorus 3.4 Magnesium 2.3 Total Bilirubin AST ALT Alkaline Phosphatase C-Reactive Protein Total Protein Albumin TSH Vancomycin Pre-Dose COVID-19 (EL) 12/17/19 12/17/19 07:25 07:25 WBC 8.8 RBC 4.35 Hgb 12.3 Hct 37.9 MCV 87.1 MCH 28.3 MCHC 32.5 RDW 16.7 H Plt Count 303 MPV 7.7 Absolute Neuts (auto) Neutrophils % Lymphocytes % Monocytes % Eosinophils % Basophils % Nucleated RBC % ESR PT with INR INR PTT (Actin FS) D-Dimer Sodium 140 Potassium 3.8 Chloride 105 Carbon Dioxide 29 Anion Gap 7 L BUN 11.5 Creatinine 0.9 Est GFR (CKD-EPI)AfAm 109.50 Est GFR (CKD-EPI)NonAf 94.48 Random Glucose 93 Calcium 8.4 L Phosphorus 3.8 Magnesium 2.4 Total Bilirubin AST ALT Alkaline Phosphatase C-Reactive Protein Total Protein Albumin TSH Vancomycin Pre-Dose COVID-19 (EL) HOSPITAL COURSE: 59 yo male presented to the hospital from outpatient clinic after recommendations by Dr. Watts for IV antibiotics due to worsening infection of his BL LE ulcers. Patient was treated with Zosyn for 11 days. While in the hospital, the patient was found to by tachycardic throughout his stay. EKG performed showed sinus tachy with no ischemic changes. Patient denied history of tachycardia in the past. We worked patient up for possible PE or DVT. D dimers were elevated. BL LE venous doppler were negative for DVT. We were unable to perform CT due to body habitus. We were also unable to perform V/Q scan. Because we couldn't rule out PE, we treated patient with 10 mg Eliquis BID. He is being discharged on that dose until 12/22/19. Patient will continue to take 5 mg eliquis BID unless otherwise specified by his physician during outpatient followup. Patient is also being sent home on Augmentin 875 BID for 5 days. Estrada moreno should follow up with wound care (Dr. Lopez) within 1 week after discharge, and his PCP for repeat labs and medication reconciliation Date of Admission:12/08/19 Date of Discharge: 12/19/19 Minutes to complete discharge: 45 Discharge Summary Problems reviewed: Yes Reason For Visit: WOUND OF LOWER EXTREMITY, VENOUS STASIS ULCERS Current Active Problems Cardiomyopathy (Acute) HLD (hyperlipidemia) (Acute) HTN (hypertension) (Acute) Infected stasis ulcer of left lower extremity (Acute) Tachycardia (Acute) Wound of lower extremity (Acute) Condition: Improved - Instructions Diet, Activity, Other Instructions: You came into the hospital for an infection of your legs. You were treated with IV antibiotics. Since there are concerns for dangerous blood clots, you are also being treated with Eliquis ( a blood thinner). You are now stable for discharge. Medications: Please take Augmentin 875 mg twice a day for 5 days For the next 3 days 12/18 until 7/17: TAKE Eliquis two 5 mg pills twice a day (FOR A TOTAL OF 4 PILLS) ON 12/22: start taking Eliquis 1 pill two times a day. You will run out of pill before 30 days so it's important to follow up with your doctor within the next 2 weeks for care and medication refills. Please continue your home medications as prescribed. FOLLOW UP: Please follow up with your primary care physician in 1 week to monitor your improvement. You will need repeat labwork ( CBC, BMP, Mg, Phos) Please follow up with your wound care physician, Dr. Lopez, in 1 week to monitor your wounds. Please follow up with your Legal File Clerk, Dr. Márquez, to further manage your lungs. WOUND CARE: -Elevate your legs at all times while at rest -Once your leg infection resolves, you may use CORIE wraps on your legs. -Use Santyl to wounds, then cover with damp to dry 4x4s and kerlix If you have new, worsening, or concerning symptoms please return to the ED or call 911. Referrals: Maggi Meyer MD [Staff Physician] - Umer Garcia [Primary Care Provider] - Isiah Lopez DO [Staff Physician] - Disposition: VNS/HOME HEALTH CARE - Home Medications Comprehensive Discharge Medication List: Ambulatory Orders Amlodipine Besylate 1 tab PO DAILY 07/14/19 Gabapentin 1 tab PO TID PRN 07/14/19 Buprenorphine 5 mcg TD WEEKLY PRN 10/23/19 Naftifine HCl [Naftin] 60 gm TP DAILY #1 tube 10/31/19 Aspirin [Aspirin EC] 81 mg PO DAILY 12/08/19 Carvedilol 12.5 mg PO BID 12/08/19 Melatonin 1 mg PO PRN 12/08/19 Torsemide 20 mg PO PRN PRN 12/08/19 Atorvastatin Ca [Lipitor] 1 tab PO DAILY 12/12/19 Oxycodone HCl/Acetaminophen [Percocet 5-325 mg Tablet] 1 tab PO TID PRN 12/12/19 Hctz 25Mg/Triamterene [Dyazide 25/37.5 -] 1 tab PO DAILY 12/13/19 Amoxicillin/Potassium Clav [Augmentin 875-125 Tablet] 1 each PO BID #10 tablet 12/18/19 Apixaban [Eliquis] 5 mg PO BID 30 Days #60 tablet 12/18/19 Acetaminophen [Tylenol .Regular Strength -] 325 mg PO TID PRN tablet 12/19/19 Collagenase Clostridium Hist. [Santyl -] 1 applic TP DAILY tube 12/19/19 This patient is new to me today: No Emergency Visit: Yes ED Registration Date: 12/08/19 Care time: The patient presented to the Emergency Department on the above date and was hospitalized for further evaluation of their emergent condition. Critical Care patient: No - Discharge Referral Referred to [facility] Med [facility] Yes Physician Referral: Isiah Lopez DO ([facility]) ATTENDING PHYSICIAN STATEMENT I saw and evaluated the patient. I reviewed the resident's note and discussed the case with the resident. I agree with the resident's findings and plan as documented. SUBJECTIVE: OBJECTIVE: ASSESSMENT AND PLAN:
== END 2019-12-19 19:24 | disposition home health service (06) | DRG 603 ==
LOC: JER 12:08 → JERBED 15:21 → J6WEST-2 12-09 01:24 → J6S 12-11 20:42
PROVIDERS: ADMIT Internal Medicine; ATTEND Internal Medicine
DX: L03.116 Cellulitis of left lower limb (principal); L97.828 Non-pressure chronic ulcer of other part of left lower leg with other specified severity; Z68.44 Body mass index [BMI] 60.0-69.9, adult; I42.8 Other cardiomyopathies; I83.229 Varicose veins of left lower extremity with both ulcer of unspecified site and inflammation; I50.30 Unspecified diastolic (congestive) heart failure; L97.818 Non-pressure chronic ulcer of other part of right lower leg with other specified severity; E66.01 Morbid (severe) obesity due to excess calories; I73.9 Peripheral vascular disease, unspecified; E78.00 Pure hypercholesterolemia, unspecified; G62.9 Polyneuropathy, unspecified; I83.019 Varicose veins of right lower extremity with ulcer of unspecified site; M54.30 Sciatica, unspecified side; B35.1 Tinea unguium; I11.0 Hypertensive heart disease with heart failure; K42.9 Umbilical hernia without obstruction or gangrene; R00.0 Tachycardia, unspecified
CPT/HCPCS: 36415; 71045-TC-FY; 73590-TC-LT-FY; 80048; 80053; 83735; 84100; 84443; 85025; 85027; 85379; 85610; 85651; 85730; 86140; 87040; 87070; 87077; 87186; 87205; 93005; 93010; 93306-TC; 93970-TC; 99285-25; G0480; J0131; U0003